=== PATIENT | female | born 1955 | race Two or more races ===

== ENCOUNTER 2020-09-29 12:47 | Emergency (ER) | payer MEDICAID ==
[~2020-09-29] VITALS: Ht 167.6 cm; Wt 70.3 kg
[2020-09-29 14:24] LABS: Basophils # (auto) 0.1 10 ^3/uL (0-0.2); Basophils % (auto) 0.5 % (0.0-2.0); Eosinophils # (auto) 0.1 10 ^3/uL (0-0.8); Eosinophils % (auto) 0.5 % (0.0-7.0); Hematocrit 38.9 % (36.0-46.0); Hemoglobin 13.3 g/dL (12.2-16.2); Lymphocytes # (auto) 1.2 10 ^3/uL (0.4-5.4); Lymphocytes % (auto) 11.4 % (10.0-50.0); Mean Corpuscular Hemoglobin 33.1 pg (28.0-32.0); Mean Corpuscular Hgb Conc. 34.2 g/dL (32.0-36.0); Mean Corpuscular Volume 96.7 fL (80.0-100.0); Monocytes # (auto) 0.5 10 ^3/uL (0-1.3); Monocytes % (auto) 4.3 % (0.0-12.0); Neutrophils # (auto) 8.9 10 ^3/uL (1.6-8.6); Neutrophils % (auto) 83.3 % (37.0-80.0); Nucleated Red Blood Cells % 0.1 %; Platelet Count (auto) 339 10^3/uL (140-450); Red Blood Cells 4.03 10^6/uL (4.0-5.20); Red Cell Distribution Width 13.9 % (11.8-14.3); White Blood Cell 10.6 10^3/uL (4.4-10.8)
[2020-09-29 14:48] LABS: Calcium 9.1 mg/dL (8.5-10.1); Potassium 3.8 mmol/L (3.5-5.1)
[2020-09-29 14:55] LABS: Albumin 4.1 g/dL (3.4-5.0); BUN/Creatinine Ratio 17.2; Bilirubin, Total 0.6 mg/dL (0.2-1.0); Total Protein 7.8 g/dL (6.4-8.2)
[2020-09-29 15:18] LABS: Urine Bacteria FEW /hpf (None Seen); Urine Blood Negative /uL (Negative); Urine Specific Gravity 1.011 (1.001-1.035); Urine WBC 9 /hpf (0 - 5)
[2020-09-29 15:51] LABS: Amphetamine Screen, Urine POSITIVE (NEGATIVE); Barbiturate Scree,Urine NEGATIVE (NEGATIVE); Benzodiazephine Screen, Urine NEGATIVE (NEGATIVE); Cannabinoid Screen, Urine NEGATIVE (NEGATIVE); Cocaine Screen, Urine NEGATIVE (NEGATIVE); Opiate Scree,Urine NEGATIVE (NEGATIVE); Phencyclidine Screen, Urine NEGATIVE (NEGATIVE)
[2020-09-29 16:17] LABS: INR 1.67 (0.9-1.15); Partial Thromboplastin Time 38.2 sec (23.0-31.2)
[2020-09-29] MEDS ORDERED: cefTRIAXone 1GM/50ML D5W 50 ML IV ONE (16:45)
[2020-09-29] MEDS ORDERED: ENOXAPARIN SOD 80 MG/0.8ML SYRINGE SC ONE (17:30)
[2020-09-29 17:56] VITALS: BP 126/72
[2020-09-29] MEDS ORDERED: APIX5TAB PO (18:54)
== END 2020-09-29 20:31 | disposition home or self-care (01) ==
LOC: ER 12:47
DX: I82.402 Acute embolism and thrombosis of unspecified deep veins of left lower extremity (principal); N39.0 Urinary tract infection, site not specified; F15.10 Other stimulant abuse, uncomplicated; E78.5 Hyperlipidemia, unspecified; I10 Essential (primary) hypertension; F17.210 Nicotine dependence, cigarettes, uncomplicated; Z90.49 Acquired absence of other specified parts of digestive tract; Z88.0 Allergy status to penicillin; Z88.8 Allergy status to other drugs, medicaments and biological substances
CPT/HCPCS: 36415; 80053; 80307; 81001; 85025; 85610; 85730; 93971; 96365; 96372; 99284; J0696; J1650

== ENCOUNTER → 2023-06-11 | Outpatient (CLI) | payer OTHER, MEDICAID ==
[~2023-06-11] MED LIST: APIX5TAB PO; CAR3125T PO; GABA-339 PO; LEVO25TA6 PO; LOSA25TA15 PO; MELA3TAB27 PO; MELO7.5T7 PO
[2023-06-11 10:12] LABS: Chloride 102 mmol/L (98-107); Potassium 4.6 mmol/L (3.5-5.1); Sodium 136 mmol/L (136-145)
[2023-06-11 10:13] LABS: Anion Gap 11 (5-15); Carbon Dioxide 23 mmol/L (20-30)
[2023-06-11 10:14] LABS: Calcium 9.6 mg/dL (8.5-10.1)
[2023-06-11 10:18] LABS: Glucose 93 mg/dL (74-106)
[2023-06-11 10:19] LABS: BUN/Creatinine Ratio 16.3 (10.0-20.0); Blood Urea Nitrogen 34 mg/dL (9-23)
[2023-06-11 11:11] LABS: Creatinine, Urine 88.98 mg/dL (30.0-125.0)
[2023-06-11 11:20] LABS: Uric Acid 10.7 mg/dL (3.1-7.8)
== END | disposition home or self-care (01) ==
LOC: LAB 09:44
PROVIDERS: ATTEND Internal Medicine
DX: N18.30 Chronic kidney disease, stage 3 unspecified (principal); R73.03 Prediabetes
CPT/HCPCS: 36415; 80048; 82043; 82570; 84550

== ENCOUNTER 2023-11-25 17:08 | Inpatient (IN) | payer OTHER, MEDICAID ==
[~2023-11-25] VITALS: Ht 170.2 cm; Wt 78.6 kg
[~2023-11-25 17:08] MED LIST changes: +LOSA-533 PO; -LOSA25TA15 PO
[2023-11-25 18:31] LABS: Urine Bacteria None Seen /hpf (None Seen)
[2023-11-25 18:45] LABS: Basophils # (auto) 0.1 10 ^3/uL (0-0.2); Basophils % (auto) 0.7 % (0.0-2.0); Eosinophils # (auto) 0.6 10 ^3/uL (0-0.8); Eosinophils % (auto) 6.3 % (0.0-7.0); Hematocrit 38.8 % (36.0-46.0); Hemoglobin 12.9 g/dL (12.2-16.2); Lymphocytes # (auto) 2.1 10 ^3/uL (0.4-5.4); Lymphocytes % (auto) 20.3 % (10.0-50.0); Mean Corpuscular Hemoglobin 31.5 pg (28.0-32.0); Mean Corpuscular Hgb Conc. 33.2 g/dL (32.0-36.0); Mean Corpuscular Volume 94.9 fL (80.0-100.0); Monocytes % (auto) 10.2 % (0.0-12.0); Neutrophils # (auto) 6.4 10 ^3/uL (1.6-8.6); Neutrophils % (auto) 62.5 % (37.0-80.0); Red Blood Cells 4.08 10^6/uL (4.0-5.20); Red Cell Distribution Width 13.7 % (11.8-14.3); White Blood Cell 10.2 10^3/uL (4.4-10.8)
[2023-11-25 18:53] LABS: Chloride 97 mmol/L (98-107); Potassium 4.3 mmol/L (3.5-5.1); Sodium 133 mmol/L (136-145)
[2023-11-25 18:54] LABS: Urine Blood Negative /uL (Negative); Urine Clarity Clear (Clear); Urine Color Colorless (Yellow); Urine Protein, UAD Negative (Negative); Urine Specific Gravity 1.005 (1.001-1.035); Urine Urobilinogen Normal (Negative); Urine WBC <1 /hpf (0 - 5)
[2023-11-25 18:54] LABS: Anion Gap 10 (5-15); Carbon Dioxide 26 mmol/L (20-30)
[2023-11-25 18:59] LABS: Blood Urea Nitrogen 28 mg/dL (9-23); Glucose 95 mg/dL (74-106)
[2023-11-25 19:14] LABS: INR 1.05 (0.9-1.15); Partial Thromboplastin Time 32.7 SEC (24.5-34.5); Prothrombin Time 11.1 sec (9.3-11.8)
[2023-11-25] MEDS: cefTRIAXone 1GM/50ML D5W 50 ML IV ONE (20:38)
[2023-11-25] MEDS: CLINDAMYCIN 300MG IV 50 ML IV ONE (20:50)
[2023-11-25] MEDS ORDERED: TEMAZEPAM 15 MG CAP PO PRN (22:30)
[2023-11-25] MEDS ORDERED: ONDANSETRON HCL 4 MG/2 ML VIAL IV PRN (22:30)
[2023-11-25] MEDS: HYDROcodone-ACET 5/325MG TAB PO PRN (23:10)
[2023-11-25 23:13] LABS: Lactic Acid w/Reflex 2.2 mmol/L (0.4-2.0)
[2023-11-26] VITALS (7 sets, daily range): BP systolic 127–150; BP diastolic 75–84; PULSE 70–91; RESP 16–20; TEMP 36.8; O2SAT 96–99
[2023-11-26] MEDS ORDERED: HYDR-3682 PO (01:13)
[2023-11-26] MEDS ORDERED: METH-1182 PO (01:13)
[2023-11-26] MEDS: CLINDAMYCIN 600MG IV 50 ML IV SCH (05:58)
[2023-11-26] MEDS: LEVOTHYROXINE SODIUM 25 MCG TAB PO SCH (05:58)
[2023-11-26 06:05] LABS: Basophils # (auto) 0.1 10 ^3/uL (0-0.2); Basophils % (auto) 0.7 % (0.0-2.0); Eosinophils # (auto) 0.6 10 ^3/uL (0-0.8); Hematocrit 35.8 % (36.0-46.0); Lymphocytes # (auto) 1.9 10 ^3/uL (0.4-5.4); Lymphocytes % (auto) 23.3 % (10.0-50.0); Mean Corpuscular Hemoglobin 31.9 pg (28.0-32.0); Mean Corpuscular Hgb Conc. 33.6 g/dL (32.0-36.0); Mean Corpuscular Volume 94.8 fL (80.0-100.0); Monocytes % (auto) 12.5 % (0.0-12.0); Neutrophils # (auto) 4.6 10 ^3/uL (1.6-8.6); Neutrophils % (auto) 56.5 % (37.0-80.0); Nucleated Red Blood Cells % 0.1 %; Red Blood Cells 3.78 10^6/uL (4.0-5.20); Red Cell Distribution Width 13.8 % (11.8-14.3); White Blood Cell 8.2 10^3/uL (4.4-10.8)
[2023-11-26 06:15] LABS: Calcium 9.6 mg/dL (8.7-10.4); Chloride 103 mmol/L (98-107); Potassium 4.1 mmol/L (3.5-5.1); Sodium 138 mmol/L (136-145)
[2023-11-26 06:16] LABS: Anion Gap 11 (5-15); Carbon Dioxide 24 mmol/L (20-30)
[2023-11-26 06:21] LABS: BUN/Creatinine Ratio 19.5 (10.0-20.0); Blood Urea Nitrogen 24 mg/dL (9-23); Glucose 91 mg/dL (74-106)
[2023-11-26] MEDS: GABAPENTIN 300 MG CAP PO SCH (08:47)
[2023-11-26] MEDS: APIXABAN 5 MG TAB PO SCH (08:48)
[2023-11-26] MEDS: ACETAMINOPHEN 325 MG TAB PO PRN (08:48)
[2023-11-26] MEDS: CARVEDILOL 3.125 MG TAB PO SCH (08:49)
[2023-11-26 09:22] LABS: Creatinine, Urine 36.58 mg/dL (30.0-125.0)
[2023-11-26] MEDS: MAGNESIUM OXIDE 400 MG TAB PO ONE (12:14)
[2023-11-26] MEDS: cefTRIAXone 1GM/50ML D5W 50 ML IV ONE (12:14)
[2023-11-26] MEDS: amLODIPine BESYLATE 5 MG TAB PO ONE (12:15)
[2023-11-26] MEDS: SODIUM CHLORIDE 0.9% 1,000 ML IV SCH (12:24)
[2023-11-26] MEDS ORDERED: IOHEXOL 300 MG/ML 100ML BOTTLE IJ ONE (16:35)
[2023-11-26] MEDS: traMADol HCL 50 MG TAB PO PRN (16:38)
[2023-11-26] MEDS ORDERED: ACET-1079 PO (17:06)
[2023-11-26] MEDS ORDERED: LEVO500T91 PO (17:06)
[2023-11-26] MEDS ORDERED: MAGNESIUM OXIDE 400 MG TAB PO SCH (22:00)
[2023-11-27] MEDS ORDERED: cefTRIAXone 1GM/50ML D5W 50 ML IV SCH (09:00)
[2023-11-27] MEDS ORDERED: amLODIPine BESYLATE 5 MG TAB PO SCH (10:00)
== END 2023-11-26 19:42 | disposition home or self-care (01) | DRG 602 ==
LOC: ER 17:08 → OVERFLOW 22:52 → WEST WING 11-26 00:40
PROVIDERS: ADMIT Internal Medicine; ATTEND Emergency Medicine
DX: L03.114 Cellulitis of left upper limb (principal); N17.0 Acute kidney failure with tubular necrosis; M19.042 Primary osteoarthritis, left hand; N18.9 Chronic kidney disease, unspecified; I12.9 Hypertensive chronic kidney disease with stage 1 through stage 4 chronic kidney disease, or unspecified chronic kidney disease; G89.29 Other chronic pain; M25.562 Pain in left knee; M54.9 Dorsalgia, unspecified; E03.9 Hypothyroidism, unspecified; F17.210 Nicotine dependence, cigarettes, uncomplicated; E78.5 Hyperlipidemia, unspecified; Z88.8 Allergy status to other drugs, medicaments and biological substances; Z79.899 Other long term (current) drug therapy; Z88.0 Allergy status to penicillin; Z88.2 Allergy status to sulfonamides; Z90.49 Acquired absence of other specified parts of digestive tract; Z80.0 Family history of malignant neoplasm of digestive organs; Z80.1 Family history of malignant neoplasm of trachea, bronchus and lung
CPT/HCPCS: 36415; 73200; 76775; 80048; 81001; 82570; 83036; 83605; 83735; 84300; 84443; 84550; 85025; 85379; 85610; 85730; 87040; 87081; 93971; G0378; J3490

== ENCOUNTER → 2023-12-10 | Outpatient (CLI) | payer OTHER, MEDICAID ==
[~2023-12-10] MED LIST changes: +ACET-1079 PO; +HYDR-3682 PO; +LEVO500T91 PO; -LOSA-533 PO; -MELA3TAB27 PO; -MELO7.5T7 PO; +METH-1182 PO
[2023-12-10 16:13] LABS: Urine Bacteria None Seen /hpf (None Seen)
[2023-12-10 16:20] LABS: Basophils # (auto) 0.1 10 ^3/uL (0-0.2); Basophils % (auto) 0.6 % (0.0-2.0); Eosinophils # (auto) 0.5 10 ^3/uL (0-0.8); Eosinophils % (auto) 4.2 % (0.0-7.0); Hematocrit 38.2 % (36.0-46.0); Hemoglobin 12.9 g/dL (12.2-16.2); Lymphocytes # (auto) 2.7 10 ^3/uL (0.4-5.4); Lymphocytes % (auto) 21.2 % (10.0-50.0); Mean Corpuscular Hemoglobin 31.8 pg (28.0-32.0); Mean Corpuscular Hgb Conc. 33.7 g/dL (32.0-36.0); Mean Corpuscular Volume 94.5 fL (80.0-100.0); Monocytes # (auto) 1.5 10 ^3/uL (0-1.3); Monocytes % (auto) 11.8 % (0.0-12.0); Neutrophils # (auto) 7.9 10 ^3/uL (1.6-8.6); Neutrophils % (auto) 62.2 % (37.0-80.0); Nucleated Red Blood Cells % 0.1 %; Red Blood Cells 4.04 10^6/uL (4.0-5.20); Red Cell Distribution Width 14.3 % (11.8-14.3); White Blood Cell 12.7 10^3/uL (4.4-10.8)
[2023-12-10 16:25] LABS: Urine Blood Negative /uL (Negative); Urine Clarity Clear (Clear); Urine Color Light-Yellow (Yellow); Urine Protein, UAD Negative (Negative); Urine Specific Gravity 1.019 (1.001-1.035); Urine Urobilinogen Normal (Negative); Urine WBC 7 /hpf (0 - 5); Urine pH 5.5 (5.0-9.0)
[2023-12-10 16:36] LABS: Creatinine, Urine 90.58 mg/dL (30.0-125.0)
[2023-12-10 16:40] LABS: Alanine Aminotransferase 11 U/L (7-40); Albumin 4.2 g/dL (3.2-4.8); Alkaline Phosphatase 77 U/L (46-116); Anion Gap 6 (5-15); Aspartate Aminotransferase 11 U/L (13-40); BUN/Creatinine Ratio 22.3 (10.0-20.0); Blood Urea Nitrogen 21 mg/dL (9-23); Calcium 9.2 mg/dL (8.5-10.1); Carbon Dioxide 26 mmol/L (20-30); Chloride 107 mmol/L (98-107); GFR African American 76 mL/min; GFR Non-African American 63 mL/min; Glucose 89 mg/dL (74-106); Potassium 4.1 mmol/L (3.5-5.1); Sodium 139 mmol/L (136-145)
[2023-12-10 16:41] LABS: Bilirubin, Total 0.7 mg/dL (0.2-1.0); Phosphorus 3.7 mg/dL (2.4-5.1); Total Protein 6.2 g/dL (5.7-8.2)
[2023-12-10 16:54] LABS: Uric Acid 8.9 mg/dL (3.1-7.8)
[2023-12-10 17:00] LABS: Erythrocyte Sedimentation Rate 4 mm/hr (0-20)
== END | disposition home or self-care (01) ==
LOC: LAB 15:49
PROVIDERS: ATTEND Internal Medicine
DX: E03.9 Hypothyroidism, unspecified (principal); N39.0 Urinary tract infection, site not specified; E21.3 Hyperparathyroidism, unspecified; N18.30 Chronic kidney disease, stage 3 unspecified; D63.1 Anemia in chronic kidney disease; M10.9 Gout, unspecified
CPT/HCPCS: 36415; 80053; 80069; 81001; 82043; 82306; 82570; 83970; 84550; 85025; 85652; 87086

== ENCOUNTER 2024-02-07 01:44 | Emergency (ER) | payer OTHER, MEDICAID ==
[~2024-02-07] VITALS: Ht 170.2 cm; Wt 76.6 kg
[2024-02-07 03:05] VITALS: TEMP 97.9
[2024-02-07] MEDS: hydrALAZINE HCL 10 MG TAB PO ONE (03:05)
[2024-02-07 03:35] LABS: Basophils # (auto) 0.1 10 ^3/uL (0-0.2); Eosinophils # (auto) 0.6 10 ^3/uL (0-0.8); Eosinophils % (auto) 6.5 % (0.0-7.0); Hemoglobin 12.4 g/dL (12.2-16.2); Lymphocytes # (auto) 2.5 10 ^3/uL (0.4-5.4); Lymphocytes % (auto) 27.4 % (10.0-50.0); Mean Corpuscular Hemoglobin 32.4 pg (28.0-32.0); Mean Corpuscular Hgb Conc. 33.4 g/dL (32.0-36.0); Mean Corpuscular Volume 96.9 fL (80.0-100.0); Monocytes # (auto) 0.8 10 ^3/uL (0-1.3); Neutrophils # (auto) 5.1 10 ^3/uL (1.6-8.6); Neutrophils % (auto) 56.1 % (37.0-80.0); Nucleated Red Blood Cells % 0.2 %; Platelet Count (auto) 365 10^3/uL (140-450); Red Blood Cells 3.82 10^6/uL (4.0-5.20); Red Cell Distribution Width 14.1 % (11.8-14.3); White Blood Cell 9.1 10^3/uL (4.4-10.8)
[2024-02-07 03:40] LABS: Chloride 108 mmol/L (98-107); Potassium 3.4 mmol/L (3.5-5.1); Sodium 140 mmol/L (136-145)
[2024-02-07 03:41] LABS: Anion Gap 8 (5-15); Carbon Dioxide 24 mmol/L (20-30)
[2024-02-07 03:42] LABS: Calcium 9.5 mg/dL (8.7-10.4)
[2024-02-07 03:46] LABS: BUN/Creatinine Ratio 13.7 (10.0-20.0); Blood Urea Nitrogen 14 mg/dL (9-23); Glucose 159 mg/dL (74-106)
[2024-02-07 05:04] VITALS: BP 139/85; PULSE 65; RESP 17; O2SAT 94
== END 2024-02-07 05:04 | disposition home or self-care (01) ==
LOC: ER 01:44
DX: I10 Essential (primary) hypertension (principal); G44.1 Vascular headache, not elsewhere classified; Z90.49 Acquired absence of other specified parts of digestive tract; Z98.890 Other specified postprocedural states; Z79.899 Other long term (current) drug therapy; Z88.2 Allergy status to sulfonamides; Z88.0 Allergy status to penicillin; Z88.8 Allergy status to other drugs, medicaments and biological substances
CPT/HCPCS: 36415; 70450; 71045; 80048; 83880; 84484; 85025; 93005

== ENCOUNTER → 2024-03-28 | Outpatient (CLI) | payer OTHER, MEDICAID ==
[2024-03-28 14:56] LABS: Albumin 4.3 g/dL (3.2-4.8); Alkaline Phosphatase 74 U/L (46-116); Anion Gap 6 (5-15); Aspartate Aminotransferase 11 U/L (13-40); BUN/Creatinine Ratio 22.4 (10.0-20.0); Bilirubin, Total 0.5 mg/dL (0.2-1.0); Blood Urea Nitrogen 30 mg/dL (9-23); Calcium 10.2 mg/dL (8.7-10.4); Carbon Dioxide 34 mmol/L (20-31); Chloride 100 mmol/L (98-107); Glucose 111 mg/dL (74-106); Potassium 3.5 mmol/L (3.5-5.1); Sodium 140 mmol/L (136-145); Total Protein 6.7 g/dL (5.7-8.2)
[2024-03-28 15:00] LABS: Alanine Aminotransferase < 9 U/L (7-40)
[2024-03-28 15:23] LABS: Urine Bacteria FEW /hpf (None Seen); Urine Blood Negative /uL (Negative); Urine Clarity Clear (Clear); Urine Color Colorless (Yellow); Urine Protein, UAD Negative (Negative); Urine Specific Gravity 1.009 (1.001-1.035); Urine Urobilinogen Normal (Negative); Urine WBC 6 /hpf (0 - 5)
[2024-03-28 15:39] LABS: Amphetamine Screen, Urine Neg (NEGATIVE); Barbiturate Scree,Urine Neg (NEGATIVE); Benzodiazephine Screen, Urine Neg (NEGATIVE); Cannabinoid Screen, Urine Neg (NEGATIVE); Cocaine Screen, Urine Neg (NEGATIVE); Opiate Scree,Urine Neg (NEGATIVE); Phencyclidine Screen, Urine Neg (NEGATIVE)
== END | disposition home or self-care (01) ==
LOC: LAB 14:08
PROVIDERS: ATTEND Internal Medicine
DX: K76.0 Fatty (change of) liver, not elsewhere classified (principal); E03.9 Hypothyroidism, unspecified; G89.4 Chronic pain syndrome
CPT/HCPCS: 36415; 80053; 80307; 81001

== ENCOUNTER 2024-04-11 14:17 | Emergency (ER) | payer OTHER, MEDICAID ==
[~2024-04-11] VITALS: Ht 170.2 cm; Wt 82.5 kg
[2024-04-11 16:13] LABS: Basophils # (auto) 0.1 10 ^3/uL (0-0.2); Basophils % (auto) 1.2 % (0.0-2.0); Eosinophils # (auto) 0.5 10 ^3/uL (0-0.8); Eosinophils % (auto) 7.6 % (0.0-7.0); Hematocrit 41.5 % (36.0-46.0); Hemoglobin 13.5 g/dL (12.2-16.2); Lymphocytes # (auto) 1.9 10 ^3/uL (0.4-5.4); Lymphocytes % (auto) 27.6 % (10.0-50.0); Mean Corpuscular Hemoglobin 30.6 pg (28.0-32.0); Mean Corpuscular Hgb Conc. 32.5 g/dL (32.0-36.0); Mean Corpuscular Volume 94.3 fL (80.0-100.0); Monocytes # (auto) 0.9 10 ^3/uL (0-1.3); Monocytes % (auto) 12.7 % (0.0-12.0); Neutrophils # (auto) 3.6 10 ^3/uL (1.6-8.6); Neutrophils % (auto) 50.9 % (37.0-80.0); Nucleated Red Blood Cells % 0.1 %; Platelet Count (auto) 262 10^3/uL (140-450); Red Cell Distribution Width 14.9 % (11.8-14.3)
[2024-04-11 16:32] VITALS: RESP 18
[2024-04-11 16:33] VITALS: BP 140/92; PULSE 76; RESP 17; TEMP 98.5; O2SAT 98
[2024-04-11 16:36] LABS: Alanine Aminotransferase 17 U/L (7-40); Alkaline Phosphatase 81 U/L (46-116); Anion Gap 10 (5-15); Aspartate Aminotransferase 18 U/L (13-40); BUN/Creatinine Ratio 20.5 (10.0-20.0); Bilirubin, Total 0.5 mg/dL (0.2-1.0); Blood Urea Nitrogen 33 mg/dL (9-23); Calcium 10.2 mg/dL (8.7-10.4); Carbon Dioxide 28 mmol/L (20-31); Chloride 101 mmol/L (98-107); Glucose 103 mg/dL (74-106); INR 1.13 (0.9-1.15); Lipase 66 U/L (12-53); Partial Thromboplastin Time 29.5 SEC (24.5-34.5); Potassium 3.7 mmol/L (3.5-5.1); Prothrombin Time 11.9 sec (9.3-11.8); Sodium 139 mmol/L (136-145); Total Protein 7.2 g/dL (5.7-8.2)
[2024-04-11] MEDS: PANTOPRAZOLE 40 MG/10 ML VIAL INJ IV ONE (16:45)
== END 2024-04-11 18:55 | disposition left against medical advice (07) ==
LOC: ER 14:17
DX: K43.9 Ventral hernia without obstruction or gangrene (principal); K92.2 Gastrointestinal hemorrhage, unspecified; R19.7 Diarrhea, unspecified; E78.5 Hyperlipidemia, unspecified; E03.9 Hypothyroidism, unspecified; I12.9 Hypertensive chronic kidney disease with stage 1 through stage 4 chronic kidney disease, or unspecified chronic kidney disease; N18.9 Chronic kidney disease, unspecified; Z90.49 Acquired absence of other specified parts of digestive tract; Z53.29 Procedure and treatment not carried out because of patient's decision for other reasons; Z88.0 Allergy status to penicillin; Z88.2 Allergy status to sulfonamides; Z88.8 Allergy status to other drugs, medicaments and biological substances; Z79.899 Other long term (current) drug therapy
CPT/HCPCS: 36415; 74176; 80053; 83605; 83690; 84484; 85025; 85610; 85730; 86850; 86900; 86901; 93005; 96374; 99285; J2470

== ENCOUNTER → 2024-04-11 | Outpatient (CLI) | payer OTHER, MEDICAID ==
[2024-04-11 09:44] LABS: Urine Bacteria None Seen /hpf (None Seen)
[2024-04-11 10:00] LABS: Basophils # (auto) 0.1 10 ^3/uL (0-0.2); Eosinophils # (auto) 0.4 10 ^3/uL (0-0.8); Eosinophils % (auto) 6.7 % (0.0-7.0); Hematocrit 39.6 % (36.0-46.0); Hemoglobin 13.2 g/dL (12.2-16.2); Lymphocytes % (auto) 31.7 % (10.0-50.0); Mean Corpuscular Hemoglobin 30.9 pg (28.0-32.0); Mean Corpuscular Hgb Conc. 33.4 g/dL (32.0-36.0); Mean Corpuscular Volume 92.5 fL (80.0-100.0); Monocytes # (auto) 0.8 10 ^3/uL (0-1.3); Neutrophils % (auto) 47.6 % (37.0-80.0); Platelet Count (auto) 281 10^3/uL (140-450); Red Blood Cells 4.27 10^6/uL (4.0-5.20); White Blood Cell 6.3 10^3/uL (4.4-10.8)
[2024-04-11 10:29] LABS: Urine Blood Negative /uL (Negative); Urine Clarity Clear (Clear); Urine Color Light-Yellow (Yellow); Urine Hyaline Cast FEW /lpf (0 - 2); Urine Mucus FEW (None Seen); Urine Protein, UAD Negative (Negative); Urine Urobilinogen Normal (Negative); Urine WBC 6 /hpf (0 - 5); Urine pH 5.5 (5.0-9.0)
[2024-04-11 10:43] LABS: Potassium 3.5 mmol/L (3.5-5.1)
[2024-04-11 10:49] LABS: Uric Acid 11.6 mg/dL (3.1-7.8)
[2024-04-11 10:50] LABS: BUN/Creatinine Ratio 18.3 (10.0-20.0)
[2024-04-11 10:51] LABS: Albumin 4.9 g/dL (3.2-4.8)
[2024-04-11 10:52] LABS: Phosphorus 5.4 mg/dL (2.4-5.1)
[2024-04-11 11:22] LABS: Protein, Urine < 6.0 mg/dL (1-14)
[2024-04-11 11:24] LABS: Creatinine, Urine 63.81 mg/dL (30.0-125.0); Urine Protein/Creatinine Ratio 0.09
== END | disposition home or self-care (01) ==
LOC: LAB 09:26
PROVIDERS: ATTEND Internal Medicine Nephrology
DX: E21.3 Hyperparathyroidism, unspecified (principal); E56.9 Vitamin deficiency, unspecified
CPT/HCPCS: 36415; 80069; 81001; 82306; 82570; 83970; 84156; 84550; 85025

== ENCOUNTER 2024-04-22 11:20 | Emergency (ER) | payer OTHER, MEDICAID ==
[~2024-04-22] VITALS: Ht 170.2 cm; Wt 72.0 kg
--- NOTE | 2024-04-22 11:54 | ED.PDOC ---
HPI (NEURO) HPI Comments This is a 68-year-old female who comes in to the ED with chief complaint of generalized weakness and right arm numbness. She has a past medical history relevant for hypertension, hypothyroidism, renal mass. She also has a long history of methamphetamine abuse and alcohol abuse. Patient is a poor historian. She stated that she has been having right upper arm numbness for around two weeks, she stated that she also feels that both her feet are known and she has been having gait imbalance, denies any dizziness, lightheadedness, syncope, palpitations, chest pain, shortness of breath, abdominal pain, nausea. Patient also states having mild headaches, intermittent, most prominent at on frontal area, localized. Patient stated that the last thing she did meth and alcohol was this morning. 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 History Family History Family History: Reviewed,noncontributory to illness Social History Smoker: Non-Smoker Alcohol: Denies ETOH Use Drugs: Denies Drug Use Lives In: Home Constitutional: denies: chills, diaphoresis, fatigue, fever, malaise, sweats, weakness, others EENTM: denies: blurred vision, double vision, ear bleeding, ear discharge, ear drainage, ear pain, ear ringing, eye pain, eye redness, hearing loss, mouth pain, mouth swelling, nasal discharge, nose bleeding, nose congestion, nose pain, photophobia, tearing, throat pain, throat swelling, voice changes, others Respiratory: denies: cough, hemoptysis, orthopnea, SOB at rest, shortness of breath, SOB with excertion, stridor, wheezing, others Gastrointestinal: denies: abdomen distended, abdominal pain, blood streaked bowels, constipated, diarrhea, dysphagia, difficulty swallowing, hematemesis, melena, nausea, poor appetite, poor fluid intake, rectal bleeding, rectal pain, vomiting, others Genitourinary: denies: abnormal vagina bleeding, burning, dyspareunia, dysuria, flank pain, frequency, hematuria, incontinence, pain, , vagina discharge, urgency, others Neurological: reports: headache, paresthesia, right sided numbness, speech problems; denies: dizziness, fainting, left sided numbness, left sided weakness, numbness, pre-existing deficit, right sided weakness, seizure, tingling, tremors, weakness, others Musculoskeletal: denies: back pain, gout, joint pain, joint swelling, muscle pain, muscle stiffness, neck pain, others Integumetry: denies: bruises, change in color, change in hair/nails, dryness, laceration, lesions, lumps, rash, wounds, others Allergic/Immunocompromised: denies: Difficulty Healing, Frequent Infections, Hives, Itching, others Hematologic/Lymphatic: denies: anemia, blood clots, easy bleeding, easy br uising, swollen glands, others Endocrine: denies: excessive hunger, excessive sweating, excessive thirst, excessive urination, flushing, intolerance to cold, intolerance to heat, unexplained weight gain, unexplained weight loss, others Psychiatric: denies: anxiety, bipolar disorder, depression, hopeless, panic disorder, schizophrenia, sleepless, suicidal, others Physical Exam General Appearance: No Apparent Distress, Normal HEENT: Normal ENT Inspection, Pharynx Normal, TMs Normal Neck: Full Range of Motion, Non-Tender, Normal, Normal Inspection Respiratory: Chest Non-Tender, Lungs Clear, No Accessory Muscle Use, No R espiratory Distress, Normal Breath Sounds Cardiovascular: No Edema, No JVD, No Murmur, No Gallop, Normal Peripheral Pulses, Regular Rate/Rhythm Breast Exam: Deferred Gastrointestinal: No Organomegaly, Non Tender, No Pulsatile Mass, Normal Bowel Sounds, Soft Genitalia: Deferred Pelvic: Deferred Rectal: Deferred Extremities: No calf tenderness, Normal capillary refill, Normal inspection, Normal range of motion, Non-tender, No pedal edema Neurologic: Abnormal Gait, Alert, 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 Was a procedure done?: No Differential Diagnosis (SZ) Seizure: Alcohol Withdrawl, CVA/TIA, Drug Ingestion General Weakness: Anemia, Electrolyte imbalance X-Ray, Labs, Meds, VS Vital Signs Date Time Temp Pulse Resp B/P (MAP) Pulse Ox O2 Delivery O2 Flow Rate FiO2 04/22/24 14:00 98.7 81 18 165/84 (111) 96 98.7 04/22/24 12:29 98.0 79 18 170/69 (102) 95 98.0 04/22/24 12:29 79 18 95 Room Air 04/22/24 11:40 97.6 88 16 143/89 (107) 95 Lab Test 04/22/24 12:59 Range/Units White Blood Count 6.9 4.4-10.8 10^3/uL Red Blood Count 4.35 4.0-5.20 10^6/uL Hemoglobin 13.6 12.2-16.2 g/dL Hematocrit 40.3 36.0-46.0 % Mean Corpuscular Volume 92.5 80.0-100.0 fL Mean Corpuscular Hemoglobin 31.2 28.0-32.0 pg Mean Corpuscular Hemoglobin Concent 33.8 32.0-36.0 g/dL Red Cell Distribution Width 15.1 H 11.8-14.3 % Platelet Count 269 140-450 10^3/uL Mean Platelet Volume 7.7 6.9-10.8 fL Neutrophils (%) (Auto) 58.4 37.0-80.0 % Lymphocytes (%) (Auto) 26.8 10.0-50.0 % Monocytes (%) (Auto) 8.8 0.0-12.0 % Eosinophils (%) (Auto) 4.6 0.0-7.0 % Basophils (%) (Auto) 1.4 0.0-2.0 % Neutrophils # (Auto) 4.1 1.6-8.6 10 ^3/uL Lymphocytes # (Auto) 1.9 0.4-5.4 10 ^3/uL Monocytes # (Auto) 0.6 0-1.3 10 ^3/uL Eosinophils # (Auto) 0.3 0-0.8 10 ^3/uL Basophils # (Auto) 0.1 0-0.2 10 ^3/uL Nucleated Red Blood Cells 0.0 % Sodium Level 142 136-145 mmol/L Potassium Level 3.1 L 3.5-5.1 mmol/L Chloride Level 101 98-107 mmol/L Carbon Dioxide Level 31 20-31 mmol/L Anion Gap 10 5-15 Blood Urea Nitrogen 13 9-23 mg/dL Creatinine 0.80 0.550-1.02 mg/dL Glomerular Filtration Rate Calc 81 >90 mL/min BUN/Creatinine Ratio 16.3 10.0-20.0 Serum Glucose 95 74-106 mg/dL Calcium Level 10.0 8.7-10.4 mg/dL Magnesium Level 1.6 1.6-2.6 mg/dL Current Medications Medications (Trade) Dose Ordered Sig/Eitan Route Start Time Stop Time Status Last Admin Potassium Chloride (Klor-Con Tablet) 60 meq ONCE ONCE PO 04/22/24 13:45 04/22/24 13:46 DC 04/22/24 14:03 On my initial examination, patient was in mild distress, she appear anxious, agitated, we will ordered and a CBC, BNP, magnesium, head CT, we will continue to reassess. On reassessment, patient states feeling better, she was able to stand, denied any significant dizziness, lightheadedness, head CT came back unremarkable, BNP demonstrated hypokalemia, we will give potassium 60 mEq p.o. once, magnesium was 1.6. We will discharge patient home and continue home medications, she will recommended to follow her PCP within one week, patient and verbalized understanding and agree with the plan. Images Reviewed?: Images reviewed and evaluated by me Time of 1ST Reevaluation: 11:48 Reevaluation 1ST: Unchanged Time of 2ND Reevaluation: 14:00 Reevaluation 2ND: Improved Patient Education/Counseling: Diagnosis, Treatment Family Education/Counseling: No Family Present Departure 1 Departure Time of Disposition: 14:42 Impression: Primary Impression: Amphetamine abuse Additional Impressions: Abnormal behavior Hypokalemia Disposition: 01 HOME / SELF CARE / HOMELESS Condition: Stable Critical Care Note Critical Care Time?: No Stability Stability form required: No Heart Score Heart Score: Heart Score Response (Comments) Value History N/A 0 EKG N/A 0 Age N/A 0 Risk Factors N/A 0 Troponin N/A 0 Total 0 DARY JIMENEZ RESIDENT Apr 22, 2024 11:54
--- NOTE | 2024-04-22 12:17 | DVH ---
EXAM: CT HEAD WITHOUT CONTRAST HISTORY: right arm numbness, dizziness COMPARISON: CT HEAD WITHOUT CONTRAST on DOS: 02/07/24, CT CT L HAND WO CONTRAST on DOS: 11/26/23 TECHNIQUE: Axial images were obtained and reformatted in coronal and sagittal planes. All CT scans at this medical facility are performed using dose modulation techniques as appropriate t o a performed exam including the following: Automated exposure control was utilized; adjustment of th e MA and/or KV according to patient size; and use of iterative reconstruction technique. CT Dose: CTDI volume is 52.39 mGy. Dose-length product is 863.9 mGy*cm FINDINGS: Supratentorial Region: No evidence for large acute territorial ischemia. No intracranial hemorrhage is noted. Confluent white matter hypoattenuating foci are noted bilaterally, which typically reflect chronic microvascular ischemic changes. Posterior Fossa: No acute abnormality. Brainstem: Unremarkable. Sellar/Suprasellar Region: Unremarkable. Ventricles, Cisterns, Sulci: Age-appropriate. Orbits: Unremarkable. Paranasal Sinuses: Unremarkable. Mastoid Air Cells: Unremarkable. Vasculature: Intracranial arterial calcified plaque formation noted. Bones/Soft Tissues: No acute abnormality. Other: None. IMPRESSION: 1. No acute intracranial process.
[2024-04-22 13:14] LABS: Basophils # (auto) 0.1 10 ^3/uL (0-0.2); Basophils % (auto) 1.4 % (0.0-2.0); Eosinophils # (auto) 0.3 10 ^3/uL (0-0.8); Eosinophils % (auto) 4.6 % (0.0-7.0); Hematocrit 40.3 % (36.0-46.0); Hemoglobin 13.6 g/dL (12.2-16.2); Lymphocytes # (auto) 1.9 10 ^3/uL (0.4-5.4); Lymphocytes % (auto) 26.8 % (10.0-50.0); Mean Corpuscular Hemoglobin 31.2 pg (28.0-32.0); Mean Corpuscular Hgb Conc. 33.8 g/dL (32.0-36.0); Mean Corpuscular Volume 92.5 fL (80.0-100.0); Monocytes # (auto) 0.6 10 ^3/uL (0-1.3); Monocytes % (auto) 8.8 % (0.0-12.0); Neutrophils # (auto) 4.1 10 ^3/uL (1.6-8.6); Neutrophils % (auto) 58.4 % (37.0-80.0); Platelet Count (auto) 269 10^3/uL (140-450); Red Blood Cells 4.35 10^6/uL (4.0-5.20); Red Cell Distribution Width 15.1 % (11.8-14.3); White Blood Cell 6.9 10^3/uL (4.4-10.8)
[2024-04-22 13:27] LABS: Chloride 101 mmol/L (98-107); Potassium 3.1 mmol/L (3.5-5.1); Sodium 142 mmol/L (136-145)
[2024-04-22 13:28] LABS: Anion Gap 10 (5-15); Carbon Dioxide 31 mmol/L (20-31)
[2024-04-22 13:34] LABS: BUN/Creatinine Ratio 16.3 (10.0-20.0); Blood Urea Nitrogen 13 mg/dL (9-23); Glucose 95 mg/dL (74-106)
[2024-04-22 14:00] VITALS: BP 165/84; PULSE 81; RESP 18; TEMP 98.7; O2SAT 96
[2024-04-22] MEDS: POTASSIUM CHL 20 Meq TABLET PO ONE (14:03)
--- NOTE | 2024-04-26 09:53 | ECG ---
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
== END 2024-04-22 15:02 | disposition home or self-care (01) ==
LOC: ER 11:20
DX: E87.6 Hypokalemia (principal); F15.10 Other stimulant abuse, uncomplicated; I12.9 Hypertensive chronic kidney disease with stage 1 through stage 4 chronic kidney disease, or unspecified chronic kidney disease; N18.9 Chronic kidney disease, unspecified; E78.5 Hyperlipidemia, unspecified; M10.9 Gout, unspecified; E03.9 Hypothyroidism, unspecified; Z90.49 Acquired absence of other specified parts of digestive tract
CPT/HCPCS: 36415; 70450; 80048; 83735; 85025; 93005

== ENCOUNTER → 2024-05-23 | Outpatient (CLI) | payer OTHER, MEDICAID ==
[2024-05-23 16:22] LABS: Chloride 107 mmol/L (98-107); Sodium 140 mmol/L (136-145)
[2024-05-23 16:23] LABS: Anion Gap 7 (5-15); Carbon Dioxide 26 mmol/L (20-31)
[2024-05-23 16:24] LABS: Calcium 9.9 mg/dL (8.7-10.4)
[2024-05-23 16:28] LABS: BUN/Creatinine Ratio 22.4 (10.0-20.0); Blood Urea Nitrogen 22 mg/dL (9-23); Glucose 93 mg/dL (74-106)
[2024-05-23 16:34] LABS: Uric Acid 10.2 mg/dL (3.1-7.8)
== END | disposition home or self-care (01) ==
LOC: LAB 15:10
PROVIDERS: ATTEND Internal Medicine
DX: M10.9 Gout, unspecified (principal); R73.03 Prediabetes
CPT/HCPCS: 36415; 80048; 84550

== ENCOUNTER → 2024-06-29 | Outpatient (CLI) | payer OTHER, MEDICAID ==
[2024-06-29 15:21] LABS: Basophils # (auto) 0 10 ^3/uL (0-0.2); Basophils % (auto) 0.9 % (0.0-2.0); Eosinophils # (auto) 0.4 10 ^3/uL (0-0.8); Eosinophils % (auto) 7.3 % (0.0-7.0); Hematocrit 34.7 % (36.0-46.0); Hemoglobin 11.8 g/dL (12.2-16.2); Lymphocytes % (auto) 38.9 % (10.0-50.0); Mean Corpuscular Hgb Conc. 33.9 g/dL (32.0-36.0); Mean Corpuscular Volume 94.5 fL (80.0-100.0); Monocytes # (auto) 0.5 10 ^3/uL (0-1.3); Monocytes % (auto) 9.4 % (0.0-12.0); Neutrophils # (auto) 2.2 10 ^3/uL (1.6-8.6); Neutrophils % (auto) 43.5 % (37.0-80.0); Nucleated Red Blood Cells % 0.2 %; Platelet Count (auto) 282 10^3/uL (140-450); Red Blood Cells 3.67 10^6/uL (4.0-5.20); Red Cell Distribution Width 15.6 % (11.8-14.3)
[2024-06-29 15:34] LABS: Urine Amorphous Crystal FEW /hpf (None Seen); Urine Bacteria FEW /hpf (None Seen); Urine Blood Negative /uL (Negative); Urine Clarity Turbid (Clear); Urine Color Light-Yellow (Yellow); Urine Protein, UAD Negative (Negative); Urine Specific Gravity 1.008 (1.001-1.035); Urine Squamous Epithelial Cell FEW /hpf (<5); Urine Urobilinogen Normal (Negative); Urine WBC 14 /hpf (0 - 5)
[2024-06-29 15:39] LABS: Calcium 9.7 mg/dL (8.7-10.4)
[2024-06-29 15:43] LABS: Creatinine, Urine 65.85 mg/dL (30.0-125.0); Uric Acid 4.4 mg/dL (3.1-7.8)
[2024-06-29 15:44] LABS: BUN/Creatinine Ratio 16.8 (10.0-20.0)
[2024-06-29 15:45] LABS: Albumin 4.2 g/dL (3.2-4.8)
[2024-06-29 15:46] LABS: Phosphorus 4.5 mg/dL (2.4-5.1)
== END | disposition home or self-care (01) ==
LOC: LAB 14:38
PROVIDERS: ATTEND Internal Medicine
DX: E11.21 Type 2 diabetes mellitus with diabetic nephropathy (principal); E11.22 Type 2 diabetes mellitus with diabetic chronic kidney disease; N18.30 Chronic kidney disease, stage 3 unspecified; N39.0 Urinary tract infection, site not specified; R80.9 Proteinuria, unspecified; E21.3 Hyperparathyroidism, unspecified; M10.9 Gout, unspecified; E55.9 Vitamin D deficiency, unspecified; D63.1 Anemia in chronic kidney disease
CPT/HCPCS: 36415; 80069; 81001; 82043; 82570; 83970; 84156; 84550; 85025

== ENCOUNTER 2024-07-20 03:03 | Emergency (ER) | payer OTHER, MEDICAID ==
[~2024-07-20] VITALS: Ht 160 cm; Wt 77.1 kg
[2024-07-20 03:11] VITALS: BP 106/60; PULSE 80; RESP 16
--- NOTE | 2024-07-20 03:43 | ED.PDOC ---
Musculoskeletal HPI Comments 69 year old female presents to ER with complaints of bilateral leg pain x 5 days. Patient presents to ER VIA EMS, reporting that she has been experiencing bilateral leg pain x 5 days. Notes her pain is getting better but reports she is still experiencing 3/10 bilateral leg pain prompting her to come to ER for further evaluation. Patient also reports mild pain localized to abrasion on left forearm x 1 day and presents to ER in no distress with vitals stable. Denies fever, body aches, chills, shortness of breath, chest pain, headache, numbness/tingling, calf pain, falls or any further symptoms/complaints Chief Complaint: Lower Extremity Time Seen by MD: 03:17 Primary Care Provider: MIGDALIA Reviewed Notes: Nurses Notes, Medications, Allergies Allergies: Coded Allergies: BARNEY Inhibitors (Verified Allergy, Severe, 04/14/23) Angiotensin Receptor Blockers (Verified Allergy, Severe, 04/14/23) Allergy History Not Known (Verified Allergy, Unknown, 09/29/20) Enalapril (Verified Allergy, Unknown, 09/29/20) Penicillins (Verified Allergy, Unknown, 09/29/20) Sulfa Drugs (Verified Allergy, Unknown, 04/14/23) Uncoded Allergies: ARBS (Allergy, Unknown, 09/29/20) SULFA (Allergy, Unknown, 09/29/20) Home Meds Active Scripts Acetaminophen (Tylenol) 325 Mg Tb, 325 MG PO Q8HP PRN, #7 TAB 0 Refills Prov:RADHA DAVIS RESIDENT 11/26/23 Levofloxacin Hemihydrate (LEVOFLOXACIN) 500 Mg Tab, 1 TAB PO DAILY, #7 TAB 0 Refills Prov:RADHA DAVIS RESIDENT 11/26/23 Reported Medications Hydroxyzine Hcl (Hydroxyzine Hcl) 25 Mg Tab, 1 TAB PO DAILY 11/26/23 Methocarbamol (Methocarbamol) 750 Mg Tab, 1 TAB PO BID 11/26/23 Gabapentin (Gabapentin) 600 Mg Tab, 600 MG PO TID, TAB 12/29/22 Levothyroxine Sodium (Levothyroxine Sodium) 25 Mcg Tab, 25 MCG PO DAILY, TAB 04/03/22 Apixaban Base (ELIQUIS) 5 Mg Tab, 5 MG PO BID, TAB 11/01/21 Carvedilol (Coreg) 3.125 Mg Tab, 1 TAB PO BID, #180 TAB 1 Refill 07/03/19 Information Source: Patient Mode of Arrival: EMS Past Medical History PAST MEDICAL HISTORY: Anemia, CKF, Gout, High Lipids, HTN, Thyroid Surgical History: Cholecystectomy Surgical History (Other): Right Knee surgery 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 SUPERVISOR [employer]MODULE ASSEMBLY History Family History Family History: Unknown Social History Smoker: Non-Smoker Alcohol: Heavy Drugs: Marijuana, Methamphetamine Lives In: Home Constitutional: denies: chills, diaphoresis, fatigue, fever, malaise, sweats, weakness, others EENTM: denies: blurred vision, double vision, ear bleeding, ear discharge, ear drainage, ear pain, ear ringing, eye pain, eye redness, hearing loss, mouth pain, mouth swelling, nasal discharge, nose bleeding, nose congestion, nose pain, photophobia, tearing, throat pain, throat swelling, voice changes, others Respiratory: denies: cough, hemoptysis, orthopnea, SOB at rest, shortness of breath, SOB with excertion, stridor, wheezing, others Cardiovascular: denies: chest pain, dizzy spells, diaphoresis, Dyspnea on exertion, edema, irregular heart beat, left arm pain, lightheadedness, palpitations, PND, syncope, others Gastrointestinal: denies: abdomen distended, abdominal pain, blood streaked bowels, constipated, diarrhea, dysphagia, difficulty swallowing, hematemesis, melena, nausea, poor appetite, poor fluid intake, rectal bleeding, rectal pain, vomiting, others Genitourinary: denies: abnormal vagina bleeding, burning, dyspareunia, dysuria, flank pain, frequency, hematuria, incontinence, pain, , vagina discharge, urgency, others Neurological: denies: dizziness, fainting, headache, left sided numbness, left sided weakness, numbness, paresthesia, pre-existing deficit, right sided numbness, right sided weakness, seizure, speech problems, tingling, tremors, weakness, others Musculoskeletal: reports: others (As stated in HPI) Integumetry: denies: bruises, change in color, change in hair/nails, dryness, laceration, lesions, lumps, rash, wounds, others Allergic/Immunocompromised: denies: Difficulty Healing, Frequent Infections, Hives, Itching, others Hematologic/Lymphatic: denies: anemia, blood clots, easy bleeding, easy bruising, swollen glands, others Endocrine: denies: excessive hunger, excessive sweating, excessive thirst, excessive urination, flushing, intolerance to cold, intolerance to heat, unexplained weight gain, unexplained weight loss, others Psychiatric: denies: anxiety, bipolar disorder, depression, hopeless, panic disorder, schizophrenia, sleepless, suicidal, others Physical Exam General Appearance: No Apparent Distress, Obese HEENT: PERRL/EOMI Neck: Full Range of Motion, Non-Tender, Normal Respiratory: Chest Non-Tender, Lungs Clear, No Accessory Muscle Use, No Respiratory Distress, Normal Breath Sounds Cardiovascular: No Murmur, No Gallop, Regular Rate/Rhythm Breast Exam: Deferred Gastrointestinal: NOT DONE Genitalia: Deferred Pelvic: Deferred Rectal: Deferred Extremities: No calf tenderness, Normal capillary refill, Normal range of motion Neurologic: Alert, 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 No signs of infection noted.) Peripheral Pulses: 2+ femoral (R), 2+ femoral (L), 2+ dorsalis pedis (R), 2+ dorsalis pedis (L), 2+ Radial (R), 2+ Radial (L), 2+ Brachial (R), 2+ Brachial (L) Lymphatic: No Adenopathy Was a procedure done? Was a procedure done?: No Sedation Sedation?: No Differential Diagnosis EXT Differential Diagnosis: Cellulitis, Deep Vein Thrombosis, Fracture, Dislocation, Neurovascular injury X-Ray, Labs, Meds, VS Vital Signs Date Time Temp Pulse Resp B/P (MAP) Pulse Ox O2 Delivery O2 Flow Rate FiO2 07/20/24 04:15 96 Room Air* 0 21 07/20/24 03:11 99.0 80 16 106/60 (75) 96 Lab Test 07/20/24 04:01 Range/Units White Blood Count 9.3 4.4-10.8 10^3/uL Red Blood Count 3.59 L 4.0-5.20 10^6/uL Hemoglobin 11.7 L 12.2-16.2 g/dL Hematocrit 34.4 L 36.0-46.0 % Mean Corpuscular Volume 95.8 80.0-100.0 fL Mean Corpuscular Hemoglobin 32.5 H 28.0-32.0 pg Mean Corpuscular Hemoglobin Concent 33.9 32.0-36.0 g/dL Red Cell Distribution Width 15.0 H 11.8-14.3 % Platelet Count 238 140-450 10^3/uL Mean Platelet Volume 7.5 6.9-10.8 fL Neutrophils (%) (Auto) 70.1 37.0-80.0 % Lymphocytes (%) (Auto) 14.0 10.0-50.0 % Monocytes (%) (Auto) 12.1 H 0.0-12.0 % Eosinophils (%) (Auto) 3.1 0.0-7.0 % Basophils (%) (Auto) 0.7 0.0-2.0 % Neutrophils # (Auto) 6.6 1.6-8.6 10 ^3/uL Lymphocytes # (Auto) 1.3 0.4-5.4 10 ^3/uL Monocytes # (Auto) 1.1 0-1.3 10 ^3/uL Eosinophils # (Auto) 0.3 0-0.8 10 ^3/uL Basophils # (Auto) 0.1 0-0.2 10 ^3/uL Nucleated Red Blood Cells 0.0 % Sodium Level 134 L 136-145 mmol/L Potassium Level 3.8 3.5-5.1 mmol/L Chloride Level 101 98-107 mmol/L Carbon Dioxide Level 24 20-31 mmol/L Anion Gap 9 5-15 Blood Urea Nitrogen 26 H 9-23 mg/dL Creatinine 1.19 H 0.550-1.02 mg/dL Glomerular Filtration Rate Calc 50 >90 mL/min BUN/Creatinine Ratio 21.8 H 10.0-20.0 Serum Glucose 131 H 74-106 mg/dL Calcium Level 9.6 8.7-10.4 mg/dL Plasma/Serum Blood Alcohol 4.0 <10 mg/dL Current Medications Medications (Trade) Dose Ordered Sig/Eitan Route Start Time Stop Time Status Last Admin Acetaminophen/ Hydrocodone Bitart ([place] 5/325MG Tab) 1 tab ONCE ONCE PO 07/20/24 03:45 07/20/24 03:46 DC 07/20/24 03:48 Ondansetron HCl (Zofran Po) 4 mg ONCE ONCE PO 07/20/24 03:45 2/5/25 03:46 DC 07/20/24 03:49 CBC reviewed without any significant abnormalities BMP reviewed- GFR 50, creatinine 1.19, BUN 26 Serum blood alcohol reviewed - 4 [place] 5/325 mg p.o. ordered Zofran 4 mg p.o. ordered Patient had improvement in symptoms and in no distress prior to discharge Advised to drink plenty of fluids methamphetamine/cannabis/smoking cessation discussed and advised Advised to follow up with PCP in 1-2 days Patient verbalized understanding and agreeable with current plan of care Advised to return to ER immediately if symptoms worsen Time of 1ST Reevaluation: 03:40 Reevaluation 1ST: N/A Time of 2ND Reevaluation: 04:38 Reevaluation 2ND: Improved Patient Education/Counseling: Diagnosis, Treatment, Prognosis, Need For Follow Up Family Education/Counseling: No Family Present Departure 1 Departure Time of Disposition: 05:12 Impression: Primary Impression: Musculoskeletal pain of left lower extremity Additional Impressions: Musculoskeletal pain of right lower extremity Abrasion of forearm, left Qualified Codes: S50.812A - Abrasion of left forearm, initial encounter Polysubstance abuse Disposition: 01 HOME / SELF CARE / HOMELESS Condition: Stable Discharged With: Friend Critical Care Note Critical Care Time?: No Stability Stability form required: No Heart Score Heart Score: Heart Score Response (Comments) Value History N/A 0 EKG N/A 0 Age N/A 0 Risk Factors N/A 0 Troponin N/A 0 Total 0 ISAMAR HUMPHREYS Jul 20, 2024 03:43
[2024-07-20] MEDS: HYDROcodone-ACET 5/325MG TAB PO ONE (03:48)
[2024-07-20] MEDS: ONDANSETRON ODT 4 MG TAB PO ONE (03:49)
[2024-07-20 04:15] VITALS: O2SAT 96
[2024-07-20 04:26] LABS: Basophils # (auto) 0.1 10 ^3/uL (0-0.2); Basophils % (auto) 0.7 % (0.0-2.0); Eosinophils # (auto) 0.3 10 ^3/uL (0-0.8); Eosinophils % (auto) 3.1 % (0.0-7.0); Hematocrit 34.4 % (36.0-46.0); Hemoglobin 11.7 g/dL (12.2-16.2); Lymphocytes # (auto) 1.3 10 ^3/uL (0.4-5.4); Mean Corpuscular Hemoglobin 32.5 pg (28.0-32.0); Mean Corpuscular Hgb Conc. 33.9 g/dL (32.0-36.0); Mean Corpuscular Volume 95.8 fL (80.0-100.0); Monocytes # (auto) 1.1 10 ^3/uL (0-1.3); Monocytes % (auto) 12.1 % (0.0-12.0); Neutrophils # (auto) 6.6 10 ^3/uL (1.6-8.6); Neutrophils % (auto) 70.1 % (37.0-80.0); Platelet Count (auto) 238 10^3/uL (140-450); Red Blood Cells 3.59 10^6/uL (4.0-5.20); White Blood Cell 9.3 10^3/uL (4.4-10.8)
[2024-07-20 04:34] LABS: Chloride 101 mmol/L (98-107); Potassium 3.8 mmol/L (3.5-5.1)
[2024-07-20 04:35] LABS: Anion Gap 9 (5-15); Calcium 9.6 mg/dL (8.7-10.4); Carbon Dioxide 24 mmol/L (20-31)
[2024-07-20 04:40] LABS: BUN/Creatinine Ratio 21.8 (10.0-20.0)
[2024-07-20 04:59] LABS: Blood Urea Nitrogen 26 mg/dL (9-23); Glucose 131 mg/dL (74-106); Sodium 134 mmol/L (136-145)
== END 2024-07-20 05:38 | disposition home or self-care (01) ==
LOC: EDBD 03:03 → ER 03:03
DX: S50.812A Abrasion of left forearm, initial encounter (principal); M79.605 Pain in left leg; M79.604 Pain in right leg; E78.5 Hyperlipidemia, unspecified; E03.9 Hypothyroidism, unspecified; Z88.0 Allergy status to penicillin; Z88.2 Allergy status to sulfonamides; Z88.6 Allergy status to analgesic agent; Z88.8 Allergy status to other drugs, medicaments and biological substances; Z79.899 Other long term (current) drug therapy; Z90.49 Acquired absence of other specified parts of digestive tract; Z98.890 Other specified postprocedural states; F12.90 Cannabis use, unspecified, uncomplicated; F15.90 Other stimulant use, unspecified, uncomplicated; I12.9 Hypertensive chronic kidney disease with stage 1 through stage 4 chronic kidney disease, or unspecified chronic kidney disease; N18.9 Chronic kidney disease, unspecified; X58.XXXA Exposure to other specified factors, initial encounter; Y93.89 Activity, other specified; Y92.89 Other specified places as the place of occurrence of the external cause; Y99.8 Other external cause status
CPT/HCPCS: 36415; 80048; 80320; 85025; 99283; Q0162

== ENCOUNTER 2024-08-26 22:11 | Inpatient (IN) | payer OTHER, MEDICAID ==
[~2024-08-26] VITALS: Ht 170.2 cm; Wt 83.6 kg
[2024-08-26 22:47] VITALS: PULSE 81; RESP 18; O2SAT 93
--- NOTE | 2024-08-26 23:00 | ED.PDOC ---
SOB-HPI HPI Comments 69 year old female came to ER via EMS due to shortness of breath. Patient does have history of hypertension, CKF, CHF and methamphetamine abuse. She has been having productive cough and shortness breath with the past 2 days progressively worsening. Also associated with abdominal pain, nausea, and myalgia. Patient w as seen saturating at 86% on room air on scene. Patient was given breathing treatments, and saturation improved to 94% Chief Complaint: Shortness of Breath Time Seen by MD: 22:58 Primary Care Provider: MIGDALIA Reviewed notes: Nurses Notes Information Source: Patient Mode of Arrival: EMS Review of Systems REVIEW OF SYSTEMS: No fever, no chills, or fatigue HEENT: No sore throat, no earache, no congestion, no neck pain. Cardiac: No chest pain. No palpitations. Lungs: (+) shortness of breath, (+) cough. GI: No nausea, no vomiting, no diarrhea, no constipation, no abdominal pain : No dysuria, frequency, or urgency. No hematuria. Musculoskeletal: No joint pain , no joint swelling, no extremity edema. Skin: No rash, no itching. Neuro: No headache, no dizziness, no weakness Vital Signs Vital Signs Date Time Temp Pulse Resp B/P (MAP) Pulse Ox O2 Delivery O2 Flow Rate FiO2 08/27/24 00:33 184/99 08/27/24 00:00 85 08/26/24 22:47 99.4 18 93 99.4 08/26/24 22:47 Nasal Cannula* 4 36 Physical Exam General: Awake, alert and oriented. No acute distress. Skin: Skin in warm, dry and intact. Appropriate color for ethnicity. Nailbeds pink with no cyanosis. HEENT: The head is normocephalic and atraumatic. Conjunctivae are clear without exudates or hemorrhage. Sclera is non-icteric. EOM are intact. No signs of nystagmus. Eyelids are normal in appearance without swelling or lesions. Oral mucosa is pink and moist Neck: The neck is supple with normal range of motion. No JVD. Cardiac: Heart rate and rhythm are normal. No murmurs, gallops, or rubs are auscultated. Respiratory: No signs of respiratory distress. Rales bilaterally. Patient's saturations to 86% on room air while speaking. Abdominal: Abdomen is soft, non-tender without distention. Bowel sounds are pres ent and normoactive in all four quadrants. Extremities: Right lower extremity edema, greater than left. Varicose veins noted. Posterior calf tenderness to palpation on the right. Neurological: The patient is awake, alert and oriented to person, place, and time with normal speech. Speech is clear. There is no facial asymmetry. Psychiatric: Appropriate mood and affect. Good judgement and insight. No visual or auditory hallucinations. Past Medical History PAST MEDICAL HISTORY: Anemia, CHF, CKF, Gout, High Lipids, HTN, Thyroid Surgical History: Cholecystectomy HEMATOLOGY TECHNOLOGIST History: No Pertinent HEMATOLOGY TECHNOLOGIST History Family History Family History: Reviewed,noncontributory to illness Social History Smoker: Non-Smoker Alcohol: Occasionally Drugs: Marijuana, Methamphetamine Lives In: Home Was a procedure done? Was a procedure done?: No Differential Dx Differential Diagnosis: Cardiogenic Shock, CHF, COPD, Pneumonia, PSVT, Respiratory Distress X-Ray, Labs, Meds, VS Vital Signs Date Time Temp Pulse Resp B/P (MAP) Pulse Ox O2 Delivery O2 Flow Rate FiO2 08/27/24 00:33 184/99 08/27/24 00:24 184/99 08/27/24 00:00 85 08/26/24 22:47 99.4 81 18 159/82 (107) 93 99.4 08/26/24 22:47 81 18 93 Nasal Cannula* 4 36 08/26/24 22:13 80 08/26/24 22:11 98.0 83 22 165/89 (114) 94 98.0 Lab Test 08/26/24 23:45 08/26/24 23:43 08/26/24 23:35 08/26/24 22:50 Range/Units Troponin I High Sensitivity 18 20 </=34 ng/L Blood Gas Specimen Type Arterial Blood Gas Sample Site Right radial Blood Gas Patient Temperature 37.0 Arterial Blood Date Drawn [id number] Arterial Blood pH 7.426 7.350-7.450 Arterial Blood Partial Pressure CO2 36.0 32.0-45.0 mmHg Arterial Blood Partial Pressure O2 53.5 *L 83.0-108.0 mmHg Arterial Blood HCO3 23.1 21.0-28.0 mmol/L Arterial Blood Oxygen Saturation 87.5 L 94.0-98.0 % Arterial Blood Base Excess -0.8 -2.0-3.0 mmol/L Arterial Blood Oxyhemoglobin 86.4 L 94.0-98.0 % Arterial Blood Carboxyhemoglobin 1.1 0.5-1.5 % Arterial Blood Methemoglobin 0.2 0.0-1.5 % Nathan Test Yes Blood Gas Total Hemoglobin 12.80 12.0-16.0 g/dL Blood Gas Liter Flow 4.00 Blood Gas Modality Nasal cannula FiO2 % 36.0 Specimen Drawn By Blood Gas Critical Value Read Back Yes Blood Gas Notified Whom carolyn Sanchez md Blood Gas Notified Time [id number] Blood Gas Notified By Influenza Type A Antigen Negative Negative Influenza Type B Antigen Negative Negative SARS-CoV-2 Antigen (Rapid) Positive NEGATIVE White Blood Count 5.1 4.4-10.8 10^3/uL Red Blood Count 3.71 L 4.0-5.20 10^6/uL Hemoglobin 12.0 L 12.2-16.2 g/dL Hematocrit 35.3 L 36.0-46.0 % Mean Corpuscular Volume 95.2 80.0-100.0 fL Mean Corpuscular Hemoglobin 32.3 H 28.0-32.0 pg Mean Corpuscular Hemoglobin Concent 33.9 32.0-36.0 g/dL Red Cell Distribution Width 14.8 H 11.8-14.3 % Platelet Count 220 140-450 10^3/uL Mean Platelet Volume 7.7 6.9-10.8 fL Neutrophils (%) (Auto) 62.8 37.0-80.0 % Lymphocytes (%) (Auto) 17.2 10.0-50.0 % Monocytes (%) (Auto) 17.7 H 0.0-12.0 % Eosinophils (%) (Auto) 1.5 0.0-7.0 % Basophils (%) (Auto) 0.8 0.0-2.0 % Neutrophils # (Auto) 3.2 1.6-8.6 10 ^3/uL Lymphocytes # (Auto) 0.9 0.4-5.4 10 ^3/uL Monocytes # (Auto) 0.9 0-1.3 10 ^3/uL Eosinophils # (Auto) 0.1 0-0.8 10 ^3/uL Basophils # (Auto) 0 0-0.2 10 ^3/uL Nucleated Red Blood Cells 0.1 % D-Dimer, Quantitative 0.45 0.0-0.49 mg/L FEU Sodium Level 133 L 136-145 mmol/L Potassium Level 3.7 3.5-5.1 mmol/L Chloride Level 99 98-107 mmol/L Carbon Dioxide Level 25 20-31 mmol/L Anion Gap 9 5-15 Blood Urea Nitrogen 13 9-23 mg/dL Creatinine 1.07 H 0.550-1.02 mg/dL Glomerular Filtration Rate Calc 57 >90 mL/min BUN/Creatinine Ratio 12.1 10.0-20.0 Serum Glucose 101 74-106 mg/dL Lactic Acid Level 0.7 0.4-2.0 mmol/L Calcium Level 9.7 8.7-10.4 mg/dL Total Bilirubin 0.5 0.2-1.0 mg/dL Aspartate Amino Transferase (AST) 14 13-40 U/L Alanine Aminotransferase (ALT) < 9 7-40 U/L Alkaline Phosphatase 67 46-116 U/L B-Type Natriuretic Peptide 1382.23 0-100 pg/mL Total Protein 6.8 5.7-8.2 g/dL Albumin 4.4 3.2-4.8 g/dL Current Medications Medications (Trade) Dose Ordered Sig/Eitan Route Start Time Stop Time Status Last Admin Furosemide (Lasix Injection) 40 mg ONCE ONCE IV 08/26/24 23:00 08/26/24 23:01 DC 08/27/24 00:24 Nitroglycerin (Nitrodur 0.4MG/ Hr) 1 patch ONCE ONCE TD 08/27/24 00:30 08/27/24 00:31 DC 08/27/24 00:33 CHEST RADIOGRAPH Indication: Shortness of breath Technique: Single frontal view of the chest was obtained Comparison: XY CHEST PORTABLE on DOS: 02/07/24 Findings/impression: Prominent interstitial markings. No focal consolidation or pneumothorax. No pleural effusions Time of 1ST Reevaluation: 22:44 Reevaluation 1ST: Unchanged Patient Education/Counseling: Diagnosis, Treatment Family Education/Counseling: No Family Present Departure 1 Departure Time of Disposition: 23:35 Impression: Primary Impression: Hypoxia Additional Impressions: CHF exacerbation Deep vein thrombosis (DVT) of left lower extremity COVID-19 virus infection Hyponatremia Disposition: ADMITTED INPATIENT Condition: Stable Comments 69-year-old female who presents to the emergency department with 2 days of shortness of breath. Echo May 2024 showed grade 1 diastolic dysfunction ejection fraction of 55%. Today patient's BNP is elevated, she was hypoxic. Lasix administered in the emergency department. Patient admitted for further treatment, evaluation and monitoring. Extensive evaluation was performed in attempt to identify or rule out: (See differential diagnosis section) The following tests were ordered, and results were reviewed by me: (See diagnostic results section) The following test were independently interpreted by me: EKG, I reviewed and agreed with the following test results read by other providers: Chest x-ray I reviewed the following notes from the pt's past medical encounters: Encounter November of 2023 for cellulitis. Additional information was gathered from interviewing the following independent historians: N/A Discussion of management or test interpretation with external physician/other qualified health progressive care manager: N/A Addressed an acute or chronic illness that poses a threat to life or bodily function: Hypoxia, CHF exacerbation Decision regarding hospitalization or escalation of hospital level of care: Risk and benefits of admission for further treatment of patient's condition was considered. Due to patient's current clinical condition, high risk of decline and poor outcome if discharged and need for further inpatient management and monitoring, patient will be admitted to the hospital. Drug therapy requiring intensive monitoring for toxicity: IV furosemide Parenteral controlled substances: N/A Decision regarding elective major surgery with identified patient or procedure risk factors: N/A Decision regarding emergency major surgery: N/A Decision not to resuscitate or to de-escalate care because of poor prognosis: N/A Diagnosis or treatment significantly limited by social determinants of health: N/A Critical Care Note Critical Care Time?: Yes (35 min-critical care time only) Critical care comment: Hypoxia, CHF exacerbation Due to a high probability of clinically significant, life threatening deterioration, the patient required my highest level of preparedness to intervene emergently and I personally spent this critical care time directly and personally managing the patient. This critical care time included obtaining a history; examining the patient; pulse oximetry; ordering and review of studies; arranging urgent treatment with development of a management plan; evaluation of patient's response to treatment; frequent reassessment; and, discussions with other providers. This critical care time was performed to assess and manage the high probability of imminent, life-threatening deterioration that could result in multi-organ failure. It was exclusive of separately billable procedures and treating other patients and teaching time. Please see my other sections and the rest of the note for further information on patient assessment and treatment. Stability Stability form required: No Heart Score Heart Score: Heart Score Response (Comments) Value History N/A 0 EKG N/A 0 Age N/A 0 Risk Factors N/A 0 Troponin N/A 0 Total 0 I personally scribed for CAROLYN SANCHEZ MD ([email or web address]) on 08/26/24 at 23:00. Electronically submitted by Antonio West ([employer]). I personally scribed for CAROLYN SANCHEZ MD ([email or web address]) on 08/27/24 at 00:16. Electronically submitted by Antonio West ([employer]). CAROLYN SANCHEZ MD Aug 26, 2024 23:00
[2024-08-26 23:08] LABS: Basophils # (auto) 0 10 ^3/uL (0-0.2); Basophils % (auto) 0.8 % (0.0-2.0); Eosinophils # (auto) 0.1 10 ^3/uL (0-0.8); Eosinophils % (auto) 1.5 % (0.0-7.0); Hematocrit 35.3 % (36.0-46.0); Lymphocytes # (auto) 0.9 10 ^3/uL (0.4-5.4); Lymphocytes % (auto) 17.2 % (10.0-50.0); Mean Corpuscular Hemoglobin 32.3 pg (28.0-32.0); Mean Corpuscular Hgb Conc. 33.9 g/dL (32.0-36.0); Mean Corpuscular Volume 95.2 fL (80.0-100.0); Monocytes # (auto) 0.9 10 ^3/uL (0-1.3); Monocytes % (auto) 17.7 % (0.0-12.0); Neutrophils # (auto) 3.2 10 ^3/uL (1.6-8.6); Neutrophils % (auto) 62.8 % (37.0-80.0); Nucleated Red Blood Cells % 0.1 %; Platelet Count (auto) 220 10^3/uL (140-450); Red Blood Cells 3.71 10^6/uL (4.0-5.20); Red Cell Distribution Width 14.8 % (11.8-14.3); White Blood Cell 5.1 10^3/uL (4.4-10.8)
--- NOTE | 2024-08-26 23:09 | DVH ---
CHEST RADIOGRAPH Indication: Shortness of breath Technique: Single frontal view of the chest was obtained Comparison: XY CHEST PORTABLE on DOS: 02/07/24 Findings/impression: Prominent interstitial markings. No focal consolidation or pneumothorax. No ple ural effusions
[2024-08-26 23:28] LABS: Albumin 4.4 g/dL (3.2-4.8); Alkaline Phosphatase 67 U/L (46-116); Anion Gap 9 (5-15); Aspartate Aminotransferase 14 U/L (13-40); BUN/Creatinine Ratio 12.1 (10.0-20.0); Blood Urea Nitrogen 13 mg/dL (9-23); Calcium 9.7 mg/dL (8.7-10.4); Carbon Dioxide 25 mmol/L (20-31); Chloride 99 mmol/L (98-107); Glucose 101 mg/dL (74-106); Potassium 3.7 mmol/L (3.5-5.1); Total Protein 6.8 g/dL (5.7-8.2)
[2024-08-26 23:29] LABS: Bilirubin, Total 0.5 mg/dL (0.2-1.0)
[2024-08-26 23:30] LABS: Alanine Aminotransferase < 9 U/L (7-40); Sodium 133 mmol/L (136-145)
[2024-08-26 23:49] LABS: Base Excess -0.8 mmol/L (-2.0-3.0)
[2024-08-27] VITALS (17 sets, daily range): BP systolic 94–157; BP diastolic 63–92; PULSE 64–92; RESP 16–20; TEMP 97.5–100.8; O2SAT 89–97
[2024-08-27] MEDS: FUROSEMIDE 40 MG/4 ML VIAL IV ONE (00:24)
[2024-08-27] MEDS: NITROGLYCERIN 0.4MG/HR TOPICAL PATCH TD ONE (00:33)
--- NOTE | 2024-08-27 00:49 | DVH ---
Bilateral lower extremity venous duplex Clinical History: Rule out DVT Comparison: LT LOWER DVT on DOS: 09/29/20 Technique: Duplex Doppler evaluation of the deep venous systems of both lower extremities from the common femora l veins to the popliteal veins including color Doppler and spectral/pulsed waveform analysis was perf ormed. Findings: RIGHT SIDE: The common femoral vein demonstrates appropriate compressibility and waveform variability. There is compressibility/patency of the great saphenous vein at the proximal thigh. The femoral vein demonstrates appropriate compressibility and waveform variability. The deep femoral vein demonstrates appropriate compressibility and waveform variability. The popliteal vein demonstrates appropriate compressibility and waveform variability. There is normal compressibility at the tibioperoneal trunk. LEFT SIDE: Nonocclusive DVT seen in the left common femoral vein and superficial femoral vein proximally . Bilateral complex appearing Ferraro's cyst measuring up to 6.6 cm. Impression: Nonocclusive DVT in the left common femoral vein and superficial femoral vein proximally. Safety Consultant has relayed critical findings to the ordering provider.
[2024-08-27 01:00] LABS: Rapid Influenza A Negative (Negative); Rapid Influenza B Negative (Negative)
[2024-08-27] MEDS ORDERED: MORPHINE SULFATE INJ 2 MG/ml SYRG IV PRN (01:00)
[2024-08-27] MEDS ORDERED: ONDANSETRON HCL 4 MG/2 ML VIAL IV PRN (01:00)
[2024-08-27] MEDS ORDERED: ACETAMINOPHEN 325 MG TAB PO PRN (01:00)
[2024-08-27 01:02] LABS: COVID19 ANTIGEN SOFIA FIA POSITIVE (NEGATIVE)
[2024-08-27] MEDS ORDERED: VALSARTAN 80 MG TAB PO ONE (02:00)
[2024-08-27] MEDS: levoFLOXacin 500 MG TAB PO SCH (02:35)
[2024-08-27] MEDS ORDERED: REMDESIVIR PER PHARMACY 0 ML IV SCH (02:45)
--- NOTE | 2024-08-27 02:54 | DVHHPRES ---
History of Present Illness Resident Creating Document: ARTEMIO PEDRO Reason for Visit: Shortness of breath History of Present Illness Patient is a 69 year old female presented to the ED via EMS due to shortness of breath for 2 days. Patient has been having productive cough and shortness breath with the past 2 days that progressively worsened. She also noticed abdominal pain, nausea, and myalgia. She however denied fever,dizziness, vomiting, or changes in bowel movement. At scene when EMS arrived, patient was saturating at 86% on room air. She was given breathing treatments on route to the ED that improved her O2 saturation. In the ED, patient remained breathless and also tested positive for COVID. PMHx: Anemia, CHF, CKF, Gout, High Lipids, HTN, Thyroid, DVT PShx: Cholecystectomy FHX: Reviewed,noncontributory to illness SHX: Lives with boyfriend, Marijuana, Methamphetamine Medication: Levothyroxine, carvedilol, Review of Systems Constitutional: No: Fever, Chills, Sweats, Weakness, Malaise, Other ENT: No: Ear pain, Ear discharge, Nose pain, Nose discharge, Nose congestion, Mouth pain, Mouth swelling, Throat pain, Throat swelling, Other Respiratory: Cough, Shortness of breath, SOB with excertion Cardiovascular: No: Chest Pain, Palpitations, Orthopnea, Paroxysmal Noc. Dyspnea, Edema, Lt Headedness, Other Gastrointestinal: Nausea, Abdominal Pain; No: Vomiting, Diarrhea, Constipation, Melena, Hematochezia, Other Genitourinary: No Dysuria, No Frequency, No Incontinence, No Hematuria, No Retention, No Other Musculoskeletal: No: other, neck pain, shoulder pain, arm pain, back pain, hand pain, leg pain, foot pain Skin: No: Rash, Lesions, Jaundice, Bruising, Other Neurological: No: Weakness, Numbness, Incoordination, Change in speech, Confusion, Seizures, Other Allergies: Coded Allergies: BARNEY Inhibitors (Verified Allergy, Severe, 04/14/23) Angiotensin Receptor Blockers (Verified Allergy, Severe, 04/14/23) Allergy History Not Known (Verified Allergy, Unknown, 09/29/20) Enalapril (Verified Allergy, Unknown, 09/29/20) Penicillins (Verified Allergy, Unknown, 09/29/20) Sulfa Drugs (Verified Allergy, Unknown, 04/14/23) Uncoded Allergies: ARBS (Allergy, Unknown, 09/29/20) SULFA (Allergy, Unknown, 09/29/20) Medications Current Medications Medications Dose Ordered Sig/Eitan Route Start Time Stop Time Status Last Admin Dose Admin Acetaminophen 650 mg Q6HP PRN PO 08/27/24 01:00 Ondansetron HCl 4 mg Q4HP PRN IV 08/27/24 01:00 Morphine Sulfate 2 mg Q4HPRN PRN IV 08/27/24 01:00 Enoxaparin Sodium 40 mg DAILY SC 08/27/24 10:00 Acetaminophen 325 mg Q8HP PRN PO 08/27/24 01:00 Apixaban 5 mg BID PO 08/27/24 10:00 UNV Carvedilol 3.125 mg BID PO 08/27/24 10:00 Levofloxacin 500 mg DAILY PO 08/27/24 02:30 08/27/24 02:35 500 MG Levothyroxine Sodium 25 mcg DAILY PO 08/27/24 10:00 Gabapentin 600 mg TID PO 08/27/24 06:00 Hydroxyzine HCl 25 mg DAILY PO 08/27/24 10:00 Methocarbamol 750 mg BID PO 08/27/24 10:00 Furosemide 40 mg BIDD PO 08/27/24 06:00 Valsartan 80 mg DAILY PO 08/27/24 10:00 UNV Remdesivir 0 ml @ 0 mls/hr PER PHARMACY IV 08/27/24 02:45 08/29/24 02:46 UNV Exam Vital Signs Vital Signs Date Time Temp Pulse Resp B/P (MAP) Pulse Ox O2 Delivery O2 Flow Rate FiO2 08/27/24 02:46 92 19 92 Nasal Cannula* 4 36 08/27/24 02:43 98.9 98.9 08/27/24 02:42 169/84 (112) Exam General Appearance: Alert, Oriented X3, Cooperative,Severe acute distress, Patient's saturations to 86% on room air while speaking HEENT: Atraumatic, PERRLA, EOMI, Mucous membrane moist/pink Respiratory: diminished, Rales bilaterally. Cardiovascular: Regular rate, Normal S1, Normal S2, No murmurs, no chest wall tenderness Abdominal: distention, tenderness in the epigastrium and right upper quadrant, bowel sounds present, no scars noted Extremities: No clubbing, No cyanosis, No edema, Normal pulses, No tenderness/swelling Skin: No rashes, No breakdown, No significant lesion Neuro: limited mobility, uses wheelchair, Normal speech, Sensation intact, Cranial nerves 3-12 NL, Psych/Mental Status: Mental status NL, Mood NL Labs/Xrays Labs Test 08/26/24 23:45 08/26/24 23:43 08/26/24 23:35 08/26/24 22:50 Range/Units Troponin I High Sensitivity 18 </=34 ng/L Blood Gas Specimen Type Arterial Blood Gas Sample Site Right radial Blood Gas Patient Temperature 37.0 Arterial Blood Date Drawn [id number] Arterial Blood pH 7.426 7.350-7.450 Arterial Blood Partial Pressure CO2 36.0 32.0-45.0 mmHg Arterial Blood Partial Pressure O2 53.5 *L 83.0-108.0 mmHg Arterial Blood HCO3 23.1 21.0-28.0 mmol/L Arterial Blood Oxygen Saturation 87.5 L 94.0-98.0 % Arterial Blood Base Excess -0.8 -2.0-3.0 mmol/L Arterial Blood Oxyhemoglobin 86.4 L 94.0-98.0 % Arterial Blood Carboxyhemoglobin 1.1 0.5-1.5 % Arterial Blood Methemoglobin 0.2 0.0-1.5 % Nathan Test Yes Blood Gas Total Hemoglobin 12.80 12.0-16.0 g/dL Blood Gas Liter Flow 4.00 Blood Gas Modality Nasal cannula FiO2 % 36.0 Specimen Drawn By Blood Gas Critical Value Read Back Yes Blood Gas Notified Whom kwabena Sanchez md Blood Gas Notified Time [id number] Blood Gas Notified By Influenza Type A Antigen Negative Negative Influenza Type B Antigen Negative Negative SARS-CoV-2 Antigen (Rapid) Positive NEGATIVE White Blood Count 5.1 4.4-10.8 10^3/uL Red Blood Count 3.71 L 4.0-5.20 10^6/uL Hemoglobin 12.0 L 12.2-16.2 g/dL Hematocrit 35.3 L 36.0-46.0 % Mean Corpuscular Volume 95.2 80.0-100.0 fL Mean Corpuscular Hemoglobin 32.3 H 28.0-32.0 pg Mean Corpuscular Hemoglobin Concent 33.9 32.0-36.0 g/dL Red Cell Distribution Width 14.8 H 11.8-14.3 % Platelet Count 220 140-450 10^3/uL Mean Platelet Volume 7.7 6.9-10.8 fL Neutrophils (%) (Auto) 62.8 37.0-80.0 % Lymphocytes (%) (Auto) 17.2 10.0-50.0 % Monocytes (%) (Auto) 17.7 H 0.0-12.0 % Eosinophils (%) (Auto) 1.5 0.0-7.0 % Basophils (%) (Auto) 0.8 0.0-2.0 % Neutrophils # (Auto) 3.2 1.6-8.6 10 ^3/uL Lymphocytes # (Auto) 0.9 0.4-5.4 10 ^3/uL Monocytes # (Auto) 0.9 0-1.3 10 ^3/uL Eosinophils # (Auto) 0.1 0-0.8 10 ^3/uL Basophils # (Auto) 0 0-0.2 10 ^3/uL Nucleated Red Blood Cells 0.1 % D-Dimer, Quantitative 0.45 0.0-0.49 mg/L FEU Sodium Level 133 L 136-145 mmol/L Potassium Level 3.7 3.5-5.1 mmol/L Chloride Level 99 98-107 mmol/L Carbon Dioxide Level 25 20-31 mmol/L Anion Gap 9 5-15 Blood Urea Nitrogen 13 9-23 mg/dL Creatinine 1.07 H 0.550-1.02 mg/dL Glomerular Filtration Rate Calc 57 >90 mL/min BUN/Creatinine Ratio 12.1 10.0-20.0 Serum Glucose 101 74-106 mg/dL Lactic Acid Level 0.7 0.4-2.0 mmol/L Calcium Level 9.7 8.7-10.4 mg/dL Total Bilirubin 0.5 0.2-1.0 mg/dL Aspartate Amino Transferase (AST) 14 13-40 U/L Alanine Aminotransferase (ALT) < 9 7-40 U/L Alkaline Phosphatase 67 46-116 U/L B-Type Natriuretic Peptide 1382.23 0-100 pg/mL Total Protein 6.8 5.7-8.2 g/dL Albumin 4.4 3.2-4.8 g/dL Assessment/Plan Assessment/Plan ACUTE ON CHRONIC CHF --> BNP: 1382 --> IV Furosemide --> Continue Carvedilol ACUTE HYPOXIC RESPIRATORY FAILURE --> Oxygen via 4L sating at 94% --> 86% on room air --> abg: PO2: 56, pco2: 26, Ph: 7.42 COVID pnuemonia --> OXYGEN --> Levofloxacin --> Remdesivir Hypertensive urgency --> Continue home medication --> Add Losartan 80 mg daily Chronic DVT --> Continue Lovenox Hypothyroidism --> Levothyroxine --> Get TSH Medication noncompliant --> Counseled patient the importance of medication compliance. Goal of care discussed more than 30 minutes, full code Case and plan discussed with Dr. Mancilla Plan discussed with: Patient My Orders Orders - ARTEMIO PEDRO RESIDENT Procedure Category Date Status Time Admit ADMIT 08/27/24 Transmitted 00:48 Code Status CODE 08/27/24 Transmitted 00:48 Vital Signs KARLENE 08/27/24 In Process 00:48 Review Orders With KARLENE 08/27/24 In Process Adm. 00:48 Acetaminophen Tablet PHA 08/27/24 In Process (Tylenol Tablet) 01:00 Notify Of Changes KARLENE 08/27/24 In Process From Base 00:48 Advance Directive KARLENE 08/27/24 In Process 00:48 Patient Condition ORDERS 08/27/24 Transmitted 00:48 Allergies KARLENE 08/27/24 In Process 00:48 Ondansetron Hcl PHA 08/27/24 In Process (Zofran) 01:00 Morphine Sulfate PHA 08/27/24 In Process Injection 01:00 Enoxaparin Sodium PHA 08/27/24 In Process (Lovenox) 10:00 Oxygen By Nasal RT 08/27/24 Transmitted Cannula 00:48 Notify Of Changes KARLENE 08/27/24 In Process From Base 00:48 Acetaminophen Tablet PHA 08/27/24 In Process (Tylenol Tablet) 01:00 Apixaban (Eliquis) PHA 08/27/24 Pending 10:00 Carvedilol Tablet PHA 08/27/24 In Process (Coreg Tablet) 10:00 Levofloxacin Tablet PHA 08/27/24 In Process (Levaquin Tablet) 02:30 Levothyroxine Tablet PHA 08/27/24 In Process (Synthroid Tablet) 10:00 Gabapentin Capsule PHA 08/27/24 In Process (Neurontin Capsule) 06:00 Hydroxyzine Oral PHA 08/27/24 In Process (Vistaril Oral) 10:00 Methocarbamol PHA 08/27/24 In Process (Robaxin) 10:00 Furosemide Tablet PHA 08/27/24 In Process (Lasix Tablet) 06:00 Valsartan (Diovan) PHA 08/27/24 Pending 02:00 Valsartan (Diovan) PHA 08/27/24 Pending 10:00 Date of Service: Aug 27, 2024 Billing Provider: RAMON MANCILLA MD Common Visit Codes: 14614-PFEBMMT INP/OBS CARE (HIGH) Secondary Visit Codes: 18133-[id number] CARE PLAN 30 MINUTES ARTEMIO PEDRO RESIDENT Aug 27, 2024 02:54 RAMON MANCILLA MD Aug 27, 2024 11:39
--- NOTE | 2024-08-27 03:32 | ECG ---
[facility] Test Date: 2024-08-26 Test Time: 22:13:12 Pat Name: DAVEY CARTER Department: ER Room: 0214T Gender: F Cart Attendant: ER : 1955 Requested By: CAROLYN DEL TORO Order Number: [id number] Reading MD: César Barba Measurements Intervals [place] Rate: 80 P: 50 [place]: 167 QRS: 49 QRSD: 129 T: 74 QT: 412 QTc: 476 Interpretive Statements Sinus rhythm Right atrial enlargement Nonspecific intraventricular conduction delay Minimal ST elevation, lateral leads Artifact in lead(s) I,II,aVR,aVL,aVF and baseline wander in lead(s) I,III,aVL Electronically Signed On 08-27-2024 19:22:52 PDT by César Barba Please click the below link to view image of tracing.
[2024-08-27] MEDS: ACETAMINOPHEN 325 MG TAB PO PRN (04:51)
[2024-08-27] MEDS: amLODIPine BESYLATE 5 MG TAB PO ONE (04:51)
[2024-08-27] MEDS: GABAPENTIN 300 MG CAP PO SCH (06:32)
[2024-08-27] MEDS: FUROSEMIDE 40 MG TAB PO SCH (06:33)
[2024-08-27] MEDS ORDERED: ALLO300T2 PO (06:45)
[2024-08-27] MEDS ORDERED: LOSA-533 PO (06:46)
[2024-08-27] MEDS: REMDESIVIR 200mg in NS 210mL LOADING DOSE ADULT IV ONE (08:52)
[2024-08-27] MEDS ORDERED: ENOXAPARIN SOD 40 MG/0.4 ML SYRINGE SC SCH (10:00)
[2024-08-27] MEDS ORDERED: VALSARTAN 80 MG TAB PO SCH (10:00)
[2024-08-27] MEDS ORDERED: APIXABAN 5 MG TAB PO SCH (10:00)
[2024-08-27] MEDS: hydrOXYzine HCL 10 MG TAB PO SCH (10:02)
[2024-08-27] MEDS: amLODIPine BESYLATE 5 MG TAB PO SCH (10:06)
[2024-08-27] MEDS: LEVOTHYROXINE SODIUM 25 MCG TAB PO SCH (10:06)
[2024-08-27] MEDS: CARVEDILOL 3.125 MG TAB PO SCH (10:07)
[2024-08-27] MEDS: FUROSEMIDE 40 MG/4 ML VIAL IV SCH (10:08)
[2024-08-27] MEDS: DexAMETHasone SOD PHOS 10MG/1ML VIAL INJ IV ONE (10:08)
[2024-08-27] MEDS: METHOCARBAMOL 500 MG TAB PO SCH (10:08)
[2024-08-27] MEDS: ENOXAPARIN SOD 100 MG/1 ML SYRINGE SC SCH (10:34)
[2024-08-27] MEDS: IPRATROPIUM BROM 0.5 MG/2.5ML INH SOL NEB SCH (11:16)
[2024-08-27] MEDS: ALBUTEROL SULF 2.5 MG/0.5ML(0.5%) NEB SOLN NEB SCH (11:16)
[2024-08-27 12:28] LABS: Base Excess 3.2 mmol/L (-2.0-3.0)
[2024-08-27 13:44] LABS: Basophils # (auto) 0.1 10 ^3/uL (0-0.2); Basophils % (auto) 0.7 % (0.0-2.0); Eosinophils # (auto) 0 10 ^3/uL (0-0.8); Eosinophils % (auto) 0.1 % (0.0-7.0); Hematocrit 37.8 % (36.0-46.0); Hemoglobin 12.8 g/dL (12.2-16.2); Lymphocytes # (auto) 0.9 10 ^3/uL (0.4-5.4); Lymphocytes % (auto) 11.3 % (10.0-50.0); Mean Corpuscular Hemoglobin 31.8 pg (28.0-32.0); Mean Corpuscular Hgb Conc. 33.9 g/dL (32.0-36.0); Mean Corpuscular Volume 93.8 fL (80.0-100.0); Monocytes # (auto) 0.6 10 ^3/uL (0-1.3); Monocytes % (auto) 7.5 % (0.0-12.0); Neutrophils # (auto) 6.1 10 ^3/uL (1.6-8.6); Neutrophils % (auto) 80.4 % (37.0-80.0); Platelet Count (auto) 208 10^3/uL (140-450); Red Blood Cells 4.04 10^6/uL (4.0-5.20); Red Cell Distribution Width 14.6 % (11.8-14.3); White Blood Cell 7.5 10^3/uL (4.4-10.8)
--- NOTE | 2024-08-27 13:49 | DVHPNRES ---
Progress Note Date Seen: Aug 27, 2024 Resident Creating Document: DARY JIMENEZ RESIDENT Medical Necessity Reason Pt with a Central, PICC or Fol: No Subjective Review of Systems This is a 69 year old female presented to the ED via EMS due to shortness of breath for 2 days. PMHx: Anemia, CHF, CKF, Gout, High Lipids, HTN, Thyroid, DVT PShx: Cholecystectomy FHX: Reviewed,noncontributory to illness SHX: Lives with boyfriend, Marijuana, Methamphetamine Patient has been having productive cough and shortness breath with the past 2 days that progressively worsened. She also noticed abdominal pain, nausea, and myalgia. She however denied fever,dizziness, vomiting, or changes in bowel movement. At scene when EMS arrived, patient was saturating at 86% on room air. She was given breathing treatments on route to the ED that improved her O2 saturation. In the ED, patient remained breathless and also tested positive for COVID. On my initial assessment, patient continued to complain about significant shortness of breath, she was somnolent, A&O x2, GCS was 14. She denied having chest pain, dizziness, lightheadedness, abdominal pain, nausea, vomiting. Patient continues to be on nasal cannula at 5 L, however she desaturated and she was placed on Oxymizer. An ABG demonstrated respiratory alkalosis. Objective vital signs Vital Sign Date Time Temp Pulse Resp B/P (MAP) Pulse Ox O2 Delivery O2 Flow Rate FiO2 08/27/24 12:52 98.8 69 17 94/63 (73) 89 98.8 08/27/24 11:16 Nasal Cannula 4.0 08/27/24 11:16 36 Total Intake and Output 08/26/24 08/26/24 08/27/24 15:00 23:00 07:00 Intake Total 0 ml Balance 0 ml medications Current Medications Medications Dose Ordered Sig/Eitan Route Start Time Stop Time Status Last Admin Dose Admin Acetaminophen 650 mg Q6HP PRN PO 08/27/24 01:00 08/27/24 10:04 325 MG Ondansetron HCl 4 mg Q4HP PRN IV 08/27/24 01:00 Morphine Sulfate 2 mg Q4HPRN PRN IV 08/27/24 01:00 Acetaminophen 325 mg Q8HP PRN PO 08/27/24 01:00 Carvedilol 3.125 mg BID PO 08/27/24 10:00 08/27/24 10:07 3.125 MG Levothyroxine Sodium 25 mcg DAILY PO 08/27/24 10:00 08/27/24 10:06 25 MCG Gabapentin 600 mg TID PO 08/27/24 06:00 08/27/24 06:32 600 MG Methocarbamol 750 mg BID PO 08/27/24 10:00 08/27/24 10:08 750 MG Remdesivir 0 ml @ 0 mls/hr PER PHARMACY IV 08/27/24 02:45 08/29/24 02:46 Amlodipine Besylate 10 mg DAILY PO 08/27/24 10:00 08/27/24 10:06 10 MG Remdesivir 100 mg/ Sodium Chloride 250 ml @ 250 mls/hr DAILY@1500 IV 08/28/24 15:00 08/29/24 15:59 Dexamethasone Sodium Phosphate 6 mg DAILY IV 08/28/24 10:00 Albuterol 2.5 mg Q4HWA NEB 08/27/24 10:00 08/27/24 11:16 2.5 MG Ipratropium [place] 0.5 mg Q4HWA NEB 08/27/24 10:00 08/27/24 11:16 0.5 MG Furosemide 40 mg BIDD IV 08/27/24 10:00 08/27/24 10:08 40 MG Enoxaparin Sodium 80 mg Q12HR SC 08/27/24 10:00 08/27/24 10:34 80 MG Levofloxacin/ Dextrose 100 ml @ 100 mls/hr DAILY IV 08/28/24 10:00 Hydroxyzine Pamoate 25 mg DAILY PO 08/28/24 10:00 Examination General Appearance: Alert, Oriented X3, Cooperative, moderate distress due to sob HEENT: Atraumatic, PERRLA, EOMI, Mucous membrane moist/pink Respiratory: diminished, Rales bilaterally. Cardiovascular: Regular rate, Normal S1, Normal S2, No murmurs, no chest wall tenderness Abdominal: distention, tenderness in the epigastrium and right upper quadrant, bowel sounds present, no scars noted Extremities: No clubbing, No cyanosis, No edema, Normal pulses, No tenderness/swelling Skin: No rashes, No breakdown, No significant lesion Neuro: limited mobility, uses wheelchair, Normal speech, Sensation intact, Cranial nerves 3-12 NL, laboratory and microbiology Laboratory Tests 08/26/24 22:50 Test 08/26/24 22:50 Range/Units Serum Glucose 101 74-106 mg/dL Labs and/or images reviewed: Labs reviewed by me, Image(s) reviewed by me Problem List/Assessment/Plan Problem List/Assessment/Plan #Acute on chronic diastolic CHF BNP: 1382 Lasix 40 mg IV b.i.d. Continue Carvedilol Last echocardiogram in 06/07 demonstrated an ejection fraction of 55%, RVSP 46 #Acute hypoxic respiratory failure Placed on Oxymizer, maintain an oxygen saturation more than 92% #COVID pneumonia #Possible pneumonia Gram-positive versus Gram-negative On Oxymizer Levaquin IV Remdesivir IV Dexamethasone 6 mg IV q.d. DuoNebs #Hypertensive urgency, improving Continue home medication Started Losartan 80 mg daily #Chronic DVT Continue therapeutic Lovenox #Hypothyroidism Levothyroxine #Medication noncompliant #History of methamphetamine abuse Counseled patient the importance of medication compliance. #History of gout #Dyslipidemia Goal of care discussed more than 30 minutes, full code Case and plan discussed with Dr. Mancilla critical care time 45 mins Plan discussed with: Patient, Other (RN) My Orders My Orders Orders - DARY JIMENEZ RESIDENT Procedure Category Date Status Time Respiratory Culture SHIRIN 08/27/24 Logged W/ Gs 08:00 Blood Culture SHIRIN 08/27/24 Logged 08:00 Lactic Acid W/ Reflex LAB 08/27/24 Logged Order 08:00 Dexamethasone PHA 08/28/24 In Process Injection (Decadron 10:00 Albuterol Medneb PHA 08/27/24 In Process (Ventolin Medneb) 10:00 Ipratropium Medneb PHA 08/27/24 In Process (Atrovent Medneb) 10:00 Furosemide Injection PHA 08/27/24 In Process (Lasix Injection) 10:00 Enoxaparin Sodium PHA 08/27/24 In Process (Lovenox) 10:00 Levofloxacin 500mg PHA 08/28/24 In Process (Levaquin 500mg/ 100m 10:00 Strict I & O KARLENE 08/27/24 In Process 08:10 Insert/Manage Urinary KARLENE 08/27/24 In Process Catheter 08:56 Cardiac DIET 08/27/24 Transmitted Diet-2gna,Lofat,Lochol Lunch Abg W/ Co-Ox RT 08/27/24 Logged 12:04 Admit ADMIT 08/27/24 Transmitted 13:07 Date of Service: Aug 27, 2024 Billing Provider: RAMON MANCILLA MD Common Visit Codes: [id number] CARE 30-74 MIN DARY JIMENEZ RESIDENT Aug 27, 2024 13:49 RMAON MANCILLA MD Aug 28, 2024 11:18
[2024-08-27 13:54] LABS: Anion Gap 13 (5-15); Calcium 9.2 mg/dL (8.7-10.4); Carbon Dioxide 26 mmol/L (20-31)
[2024-08-27 13:55] LABS: Chloride 92 mmol/L (98-107); Potassium 3.2 mmol/L (3.5-5.1); Sodium 131 mmol/L (136-145)
[2024-08-27 13:58] LABS: INR 1.23 (0.9-1.15); Partial Thromboplastin Time 42.4 SEC (24.5-34.5); Prothrombin Time 12.8 sec (9.3-11.8)
[2024-08-27 13:59] LABS: BUN/Creatinine Ratio 12.4 (10.0-20.0); Blood Urea Nitrogen 15 mg/dL (9-23)
[2024-08-27 14:01] LABS: Glucose 115 mg/dL (74-106); Magnesium 1.3 mg/dL (1.6-2.6); Phosphorus 4.4 mg/dL (2.4-5.1)
[2024-08-27] MEDS: POTASSIUM CHL 20 Meq TABLET PO ONE (16:31)
[2024-08-27] MEDS: MAGNESIUM SULFATE 1GM/100ML 100 ML IV SCH (16:32)
[2024-08-28] VITALS (11 sets, daily range): BP systolic 95–132; BP diastolic 53–74; PULSE 60–77; RESP 15–19; TEMP 97.5–98.6; O2SAT 90–98
[2024-08-28] MEDS: ALBUTEROL SULF HFA 90MCG INH 200DOSE IN SCH (06:00)
[2024-08-28 07:30] LABS: Basophils # (auto) 0 10 ^3/uL (0-0.2); Basophils % (auto) 0.2 % (0.0-2.0); Eosinophils # (auto) 0 10 ^3/uL (0-0.8); Eosinophils % (auto) 0.1 % (0.0-7.0); Hematocrit 38.3 % (36.0-46.0); Hemoglobin 13.4 g/dL (12.2-16.2); Lymphocytes # (auto) 1.1 10 ^3/uL (0.4-5.4); Lymphocytes % (auto) 17.1 % (10.0-50.0); Mean Corpuscular Hemoglobin 32.7 pg (28.0-32.0); Mean Corpuscular Hgb Conc. 35.1 g/dL (32.0-36.0); Mean Corpuscular Volume 93.3 fL (80.0-100.0); Monocytes # (auto) 0.7 10 ^3/uL (0-1.3); Monocytes % (auto) 10.8 % (0.0-12.0); Neutrophils # (auto) 4.8 10 ^3/uL (1.6-8.6); Neutrophils % (auto) 71.8 % (37.0-80.0); Nucleated Red Blood Cells % 0.1 %; Platelet Count (auto) 242 10^3/uL (140-450); Red Cell Distribution Width 14.2 % (11.8-14.3); White Blood Cell 6.7 10^3/uL (4.4-10.8)
[2024-08-28 07:52] LABS: Alanine Aminotransferase 10 U/L (7-40); Albumin 4.4 g/dL (3.2-4.8); Alkaline Phosphatase 60 U/L (46-116); Anion Gap 11 (5-15); Aspartate Aminotransferase 21 U/L (13-40); BUN/Creatinine Ratio 21.1 (10.0-20.0); Calcium 9.3 mg/dL (8.7-10.4); Carbon Dioxide 26 mmol/L (20-31); Magnesium 2.2 mg/dL (1.6-2.6); Potassium 3.6 mmol/L (3.5-5.1); Total Protein 6.9 g/dL (5.7-8.2)
[2024-08-28 07:53] LABS: Bilirubin, Total 0.3 mg/dL (0.2-1.0); Blood Urea Nitrogen 28 mg/dL (9-23); Chloride 97 mmol/L (98-107); Glucose 169 mg/dL (74-106); Sodium 134 mmol/L (136-145)
--- NOTE | 2024-08-28 08:25 | DVHPNRES ---
Progress Note Date Seen: Aug 28, 2024 Resident Creating Document: DARY JIMENEZ RESIDENT Medical Necessity Reason Pt with a Central, PICC or Fol: No Subjective Review of Systems patient continued to complain about shortness of breath, A&O x3, GCS was 14. She denied having chest pain, dizziness, lightheadedness, abdominal pain, nausea, vomiting. She continues to be on simple mask. Objective vital signs Vital Sign Date Time Temp Pulse Resp B/P (MAP) Pulse Ox O2 Delivery O2 Flow Rate FiO2 08/28/24 06:13 121/70 08/28/24 05:17 98.1 72 18 98 98.1 08/27/24 22:09 Mask 10.0 08/27/24 22:09 99 Total Intake and Output 08/27/24 08/27/24 08/28/24 14:59 22:59 06:59 Intake Total 250 ml 540 ml 200 ml Output Total 550 ml 500 ml Balance 250 ml -10 ml -300 ml medications Current Medications Medications Dose Ordered Sig/Eitan Route Start Time Stop Time Status Last Admin Dose Admin Acetaminophen 650 mg Q6HP PRN PO 08/27/24 01:00 08/27/24 10:04 325 MG Ondansetron HCl 4 mg Q4HP PRN IV 08/27/24 01:00 Morphine Sulfate 2 mg Q4HPRN PRN IV 08/27/24 01:00 Acetaminophen 325 mg Q8HP PRN PO 08/27/24 01:00 Carvedilol 3.125 mg BID PO 08/27/24 10:00 08/27/24 21:48 3.125 MG Levothyroxine Sodium 25 mcg DAILY PO 08/27/24 10:00 08/27/24 10:06 25 MCG Gabapentin 600 mg TID PO 08/27/24 06:00 08/28/24 06:13 600 MG Methocarbamol 750 mg BID PO 08/27/24 10:00 08/27/24 21:49 750 MG Remdesivir 0 ml @ 0 mls/hr PER PHARMACY IV 08/27/24 02:45 08/29/24 02:46 Amlodipine Besylate 10 mg DAILY PO 08/27/24 10:00 08/27/24 10:06 10 MG Remdesivir 100 mg/ Sodium Chloride 250 ml @ 250 mls/hr DAILY@1500 IV 08/28/24 15:00 08/29/24 15:59 Dexamethasone Sodium Phosphate 6 mg DAILY IV 08/28/24 10:00 Furosemide 40 mg BIDD IV 08/27/24 10:00 08/28/24 06:13 40 MG Enoxaparin Sodium 80 mg Q12HR SC 08/27/24 10:00 08/27/24 21:49 80 MG Levofloxacin/ Dextrose 100 ml @ 100 mls/hr DAILY IV 08/28/24 10:00 Hydroxyzine Pamoate 25 mg DAILY PO 08/28/24 10:00 Albuterol 90 mcg TID IN 08/28/24 06:00 Examination General Appearance: Alert, Oriented X3, Cooperative, moderate distress due to sob HEENT: Atraumatic, PERRLA, EOMI, Mucous membrane moist/pink Respiratory: diminished, Rales bilaterally. Cardiovascular: Regular rate, Normal S1, Normal S2, No murmurs, no chest wall tenderness Abdominal: distention, tenderness in the epigastrium and right upper quadrant, bowel sounds present, no scars noted Extremities: No clubbing, No cyanosis, No edema, Normal pulses, No tenderness/swelling Skin: No rashes, No breakdown, No significant lesion Neuro: limited mobility, uses wheelchair, Normal speech, Sensation intact, Cranial nerves 3-12 NL laboratory and microbiology Laboratory Tests 08/28/24 07:11 Test 08/28/24 07:11 Range/Units Serum Glucose 169 H 74-106 mg/dL Labs and/or images reviewed: Labs reviewed by me, Image(s) reviewed by me Problem List/Assessment/Plan Problem List/Assessment/Plan #Acute on chronic diastolic CHF BNP: 1382 Lasix 40 mg IV b.i.d. Continue Carvedilol Last echocardiogram in 06/07 demonstrated an ejection fraction of 55%, RVSP 46 #Acute hypoxic respiratory failure Placed on nasal cannula, maintain an oxygen saturation more than 92% #COVID pneumonia #Possible pneumonia Gram-positive versus Gram-negative On Oxymizer Levaquin IV Remdesivir IV Dexamethasone 6 mg IV q.d. DuoNebs Pending cultures #Hypertensive urgency, improving Continue home medication Continue amlodipine 10 mg p.o. q.d. #Chronic DVT Continue therapeutic Lovenox #Hypothyroidism Levothyroxine #Medication noncompliant #History of methamphetamine abuse Counseled patient the importance of medication compliance. #History of gout #Dyslipidemia Monitor Goal of care discussed more than 30 minutes, full code Case and plan discussed with Dr. Mancilla Plan discussed with: Patient, Other (RN) My Orders My Orders Orders - DARY JIMENEZ RESIDENT Procedure Category Date Status Time Insert/Manage Urinary KARLENE 08/27/24 In Process Catheter 08:56 Cardiac DIET 08/27/24 Transmitted Diet-2gna,Lofat,Lochol Lunch Abg W/ Co-Ox RT 08/27/24 Logged 12:04 Admit ADMIT 08/27/24 Transmitted 13:07 Albuterol Inhaler PHA 08/28/24 In Process (Ventolin Hfa) 06:00 Potassium Er Tablet PHA 08/28/24 Verified (Klor-Con Tablet) 08:30 Date of Service: Aug 28, 2024 Billing Provider: RAMON MANCILLA MD Common Visit Codes: [id number] INP/OBS CARE(HIGH) DARY JIMENEZ RESIDENT Aug 28, 2024 08:25 RAMON MANCILLA MD Aug 28, 2024 14:50
[2024-08-28] MEDS: levoFLOXacin 500MG 100 ML IV SCH (10:00)
[2024-08-28] MEDS: DexAMETHasone SOD PHOS 10MG/1ML VIAL INJ IV SCH (10:00)
[2024-08-28] MEDS: POTASSIUM CHL 20 Meq TABLET PO ONE (11:38)
[2024-08-28] MEDS: Glucerna Carbsteady SHAKE Vanilla 8oz PO SCH (12:24)
[2024-08-28] MEDS: hydrOXYzine 25 MG TAB or CAP PO SCH (12:24)
[2024-08-28] MEDS: REMDESIVIR 100mg in NS 230mL (3 DAY REGIMEN) IV SCH (15:18)
[2024-08-28 15:42] LABS: Urine Bacteria None Seen /hpf (None Seen)
[2024-08-28 15:48] LABS: Urine Blood 3+ /uL (Negative); Urine Clarity Clear (Clear); Urine Color Light-Yellow (Yellow); Urine Mucus FEW (None Seen); Urine Protein, UAD Negative (Negative); Urine Specific Gravity 1.013 (1.001-1.035); Urine Squamous Epithelial Cell FEW /hpf (<5); Urine Urobilinogen Normal (Negative); Urine WBC 12 /HPF (0-5)
[2024-08-28 16:11] LABS: Amphetamine Screen, Urine Neg (NEGATIVE); Opiate Scree,Urine Neg (NEGATIVE)
[2024-08-28 16:12] LABS: Phencyclidine Screen, Urine Neg (NEGATIVE)
[2024-08-28 16:13] LABS: Barbiturate Scree,Urine Neg (NEGATIVE); Benzodiazephine Screen, Urine Neg (NEGATIVE); Cannabinoid Screen, Urine Neg (NEGATIVE); Cocaine Screen, Urine Neg (NEGATIVE)
[2024-08-29] VITALS (11 sets, daily range): BP systolic 106–130; BP diastolic 58–79; PULSE 53–88; RESP 14–18; TEMP 97.1–98.1; O2SAT 90–96
--- NOTE | 2024-08-29 06:36 | DVH ---
CHEST RADIOGRAPH Indication: sob Technique: Single frontal view of the chest was obtained Comparison: XY CHEST XRAY 1 VIEW on DOS: 08/26/24, XY CHEST PORTABLE on DOS: 02/07/24 FINDINGS: Lines and Tubes: None Lungs: Prominent interstitial markings. No focal consolidation. Pleura: No effusion. No pneumothorax. Cardiomediastinal contours: Unremarkable Bones: No acute osseous abnormality. IMPRESSION: 1. Prominent interstitial markings. No significant interval change.
[2024-08-29 10:24] LABS: Basophils # (auto) 0.1 10 ^3/uL (0-0.2); Basophils % (auto) 0.7 % (0.0-2.0); Eosinophils # (auto) 0 10 ^3/uL (0-0.8); Eosinophils % (auto) 0.6 % (0.0-7.0); Hematocrit 43.5 % (36.0-46.0); Hemoglobin 14.4 g/dL (12.2-16.2); Lymphocytes # (auto) 2.6 10 ^3/uL (0.4-5.4); Lymphocytes % (auto) 36.6 % (10.0-50.0); Mean Corpuscular Hemoglobin 31.4 pg (28.0-32.0); Mean Corpuscular Hgb Conc. 33.2 g/dL (32.0-36.0); Mean Corpuscular Volume 94.7 fL (80.0-100.0); Monocytes # (auto) 0.7 10 ^3/uL (0-1.3); Monocytes % (auto) 9.5 % (0.0-12.0); Neutrophils # (auto) 3.7 10 ^3/uL (1.6-8.6); Neutrophils % (auto) 52.6 % (37.0-80.0); Nucleated Red Blood Cells % 0.2 %; Platelet Count (auto) 252 10^3/uL (140-450); Red Blood Cells 4.59 10^6/uL (4.0-5.20); Red Cell Distribution Width 14.4 % (11.8-14.3); White Blood Cell 7.1 10^3/uL (4.4-10.8)
[2024-08-29 10:55] LABS: Alkaline Phosphatase 60 U/L (46-116); Anion Gap 11 (5-15); BUN/Creatinine Ratio 30.4 (10.0-20.0); Calcium 9.5 mg/dL (8.7-10.4); Carbon Dioxide 26 mmol/L (20-31); Chloride 101 mmol/L (98-107); Potassium 3.7 mmol/L (3.5-5.1); Sodium 138 mmol/L (136-145); Total Protein 6.9 g/dL (5.7-8.2)
[2024-08-29 10:56] LABS: Albumin 4.3 g/dL (3.2-4.8); Aspartate Aminotransferase 16 U/L (13-40)
[2024-08-29 10:58] LABS: Base Excess 2.4 mmol/L (-2.0-3.0)
[2024-08-29 11:06] LABS: Alanine Aminotransferase < 9 U/L (7-40); Bilirubin, Total 0.3 mg/dL (0.2-1.0); Blood Urea Nitrogen 41 mg/dL (9-23); Glucose 122 mg/dL (74-106)
--- NOTE | 2024-08-29 17:29 | DVHPNRES ---
Progress Note Date Seen: Aug 29, 2024 Resident Creating Document: DARY JIMENEZ RESIDENT Medical Necessity Reason Pt with a Central, PICC or Fol: No Subjective Review of Systems Patient stated feeling better, A&O x4. She denied having chest pain, dizziness, lightheadedness, abdominal pain, nausea, vomiting. Objective vital signs Vital Sign Date Time Temp Pulse Resp B/P (MAP) Pulse Ox O2 Delivery O2 Flow Rate FiO2 08/29/24 14:32 93 Room Air* 0 21 08/29/24 14:32 70 16 08/29/24 13:00 98.0 106/59 (75) 98.0 Total Intake and Output 08/28/24 08/28/24 08/29/24 15:00 23:00 07:00 Intake Total 240 ml 847 ml 100 ml Output Total 1400 ml Balance 240 ml 847 ml -1300 ml medications Current Medications Medications Dose Ordered Sig/Eitan Route Start Time Stop Time Status Last Admin Dose Admin Acetaminophen 650 mg Q6HP PRN PO 08/27/24 01:00 08/27/24 10:04 325 MG Ondansetron HCl 4 mg Q4HP PRN IV 08/27/24 01:00 Morphine Sulfate 2 mg Q4HPRN PRN IV 08/27/24 01:00 Acetaminophen 325 mg Q8HP PRN PO 08/27/24 01:00 Carvedilol 3.125 mg BID PO 08/27/24 10:00 08/29/24 10:26 3.125 MG Levothyroxine Sodium 25 mcg DAILY PO 08/27/24 10:00 08/29/24 10:23 25 MCG Gabapentin 600 mg TID PO 08/27/24 06:00 08/29/24 14:06 600 MG Methocarbamol 750 mg BID PO 08/27/24 10:00 08/29/24 10:22 750 MG Amlodipine Besylate 10 mg DAILY PO 08/27/24 10:00 08/29/24 10:25 10 MG Dexamethasone Sodium Phosphate 6 mg DAILY IV 08/28/24 10:00 08/29/24 10:12 6 MG Furosemide 40 mg BIDD IV 08/27/24 10:00 08/29/24 05:29 40 MG Enoxaparin Sodium 80 mg Q12HR SC 08/27/24 10:00 08/29/24 10:19 80 MG Levofloxacin/ Dextrose 100 ml @ 100 mls/hr DAILY IV 08/28/24 10:00 08/29/24 10:12 100 MLS/HR Hydroxyzine Pamoate 25 mg DAILY PO 08/28/24 10:00 08/29/24 10:23 25 MG Albuterol 90 mcg TID IN 08/28/24 06:00 08/29/24 14:32 90 MCG Enteral Nutritional Formula 240 ml TIDWM PO 08/28/24 12:00 08/29/24 12:35 240 ML Examination General Appearance: Alert, Oriented X3, Cooperative, moderate distress due to sob HEENT: Atraumatic, PERRLA, EOMI, Mucous membrane moist/pink Respiratory: diminished, Rales bilaterally. Cardiovascular: Regular rate, Normal S1, Normal S2, No murmurs, no chest wall tenderness Abdominal: distention, tenderness in the epigastrium and right upper quadrant, bowel sounds present, no scars noted Extremities: No clubbing, No cyanosis, No edema, Normal pulses, No tenderness/swelling Skin: No rashes, No breakdown, No significant lesion Neuro: limited mobility, uses wheelchair, Normal speech, Sensation intact, Cranial nerves 3-12 NL laboratory and microbiology laboratory and microbiology Laboratory Tests 08/29/24 09:40 Test 08/29/24 09:40 Range/Units Serum Glucose 122 H 74-106 mg/dL Microbiology Date/Time Source Procedure Growth Status 08/27/24 13:35 Blood Blood Culture - Preliminary NO GROWTH AFTER 48 HOURS OF INCUBATION. Resulted Labs and/or images reviewed: Labs reviewed by me, Image(s) reviewed by me Problem List/Assessment/Plan Problem List/Assessment/Plan #Acute on chronic diastolic CHF BNP: 1382 dc Lasix 40 mg IV b.i.d. Continue Carvedilol Last echocardiogram in 06/07 demonstrated an ejection fraction of 55%, RVSP 46 #Acute hypoxic respiratory failure placed on room air #COVID pneumonia #Possible pneumonia Gram-positive versus Gram-negative On Oxymizer Levaquin IV Remdesivir IV Dexamethasone 6 mg IV q.d. DuoNebs Pending cultures #Hypertensive urgency, improving Continue home medication Continue amlodipine 10 mg p.o. q.d. #Chronic DVT Continue therapeutic Lovenox #Hypothyroidism Levothyroxine #Medication noncompliant #History of methamphetamine abuse Counseled patient the importance of medication compliance. #History of gout #Dyslipidemia Monitor possible dc tomorrow Goal of care discussed more than 30 minutes, full code Case and plan discussed with Dr. Mancilla Plan discussed with: Patient, Other (RN) My Orders My Orders Orders - DARY JIMENEZ RESIDENT Procedure Category Date Status Time Abg W/ Co-Ox RT 08/29/24 Logged 07:46 Date of Service: Aug 29, 2024 Billing Provider: RAMON MANCILLA MD Common Visit Codes: [id number] INP/OBS CARE(HIGH) DARY JIMENEZ RESIDENT Aug 29, 2024 17:29 RAMON MANCILLA MD Aug 30, 2024 17:33
[2024-08-30] VITALS (8 sets, daily range): BP systolic 122–133; BP diastolic 62–77; PULSE 69–82; RESP 16–20; TEMP 97.8–98.5; O2SAT 90–96
[2024-08-30 06:31] LABS: Urine Bacteria FEW /hpf (None Seen); Urine Blood 3+ /uL (Negative); Urine Clarity Turbid (Clear); Urine Protein, UAD TRACE (Negative); Urine Specific Gravity 1.014 (1.001-1.035); Urine Squamous Epithelial Cell FEW /hpf (<5); Urine Urobilinogen Normal (Negative); Urine WBC 1 /HPF (0-5); Urine pH 5.5 (5.0-9.0)
[2024-08-30 06:33] LABS: Urine Color Yellow (Yellow)
[2024-08-30 06:42] LABS: Chloride 101 mmol/L (98-107); Potassium 3.8 mmol/L (3.5-5.1); Sodium 137 mmol/L (136-145)
[2024-08-30 06:43] LABS: Anion Gap 9 (5-15); Calcium 9.9 mg/dL (8.7-10.4); Carbon Dioxide 27 mmol/L (20-31)
[2024-08-30 06:48] LABS: BUN/Creatinine Ratio 32.3 (10.0-20.0)
[2024-08-30 06:49] LABS: Magnesium 1.8 mg/dL (1.6-2.6)
[2024-08-30 06:50] LABS: Blood Urea Nitrogen 41 mg/dL (9-23); Glucose 145 mg/dL (74-106)
--- NOTE | 2024-08-30 07:40 | DVHDSRES ---
Discharge Summary Date of Admission Resident Creating Document: DARY JIMENEZ RESIDENT Aug 27, 2024 at 13:07 Date of Discharge: Aug 30, 2024 Admitting Diagnosis covid pneumonia Labs/Diagnostic Data: Laboratory Results Test 08/30/24 05:40 08/29/24 10:52 08/29/24 09:40 08/28/24 15:09 Urine Color Yellow (Yellow) Urine Clarity Turbid (Clear) Urine pH 5.5 (5.0-9.0) Urine Specific [place] 1.014 (1.001-1.035) Urine Protein Trace (Negative) Urine Ketones Negative (Negative) Urine Blood 3+ /uL (Negative) Urine Nitrite Negative (Negative) Urine Bilirubin Negative (Negative) Urine Urobilinogen Normal mg/dL (Negative) Urine Leukocyte Esterase Negative /uL (Negative) Urine RBC 146 /hpf (0 - 4) Urine Microscopic WBC 1 /HPF (0-5) Urine Squamous Epithelial Cells Few /hpf (<5) Urine Bacteria Few /hpf (None Seen) Urine Glucose Normal mg/dL (Normal) Sodium Level 137 mmol/L (136-145) Potassium Level 3.8 mmol/L (3.5-5.1) Chloride Level 101 mmol/L (98-107) Carbon Dioxide Level 27 mmol/L (20-31) Anion Gap 9 (5-15) Blood Urea Nitrogen 41 mg/dL (9-23) Creatinine 1.27 mg/dL (0.550-1.02) Glomerular Filtration Rate Calc 46 mL/min (>90) BUN/Creatinine Ratio 32.3 (10.0-20.0) Serum Glucose 145 mg/dL (74-106) Calcium Level 9.9 mg/dL (8.7-10.4) Magnesium Level 1.8 mg/dL (1.6-2.6) Blood Gas Specimen Type Arterial Blood Gas Sample Site Right brachial Blood Gas Patient Temperature 37.0 Arterial Blood Date Drawn [id number] Arterial Blood pH 7.470 (7.350-7.450) Arterial Blood Partial Pressure CO2 36.3 mmHg (32.0-45.0) Arterial Blood Partial Pressure O2 59.3 mmHg (83.0-108.0) Arterial Blood HCO3 25.8 mmol/L (21.0-28.0) Arterial Blood Oxygen Saturation 90.0 % (94.0-98.0) Arterial Blood Base Excess 2.4 mmol/L (-2.0-3.0) Arterial Blood Oxyhemoglobin 89.2 % (94.0-98.0) Arterial Blood Carboxyhemoglobin 0.6 % (0.5-1.5) Arterial Blood Methemoglobin 0.3 % (0.0-1.5) Nathan Test N/a Blood Gas Total Hemoglobin 13.80 g/dL (12.0-16.0) Blood Gas Modality Room air FiO2 % 21.0 White Blood Count 7.1 10^3/uL (4.4-10.8) Red Blood Count 4.59 10^6/uL (4.0-5.20) Hemoglobin 14.4 g/dL (12.2-16.2) Hematocrit 43.5 % (36.0-46.0) Mean Corpuscular Volume 94.7 fL (80.0-100.0) Mean Corpuscular Hemoglobin 31.4 pg (28.0-32.0) Mean Corpuscular Hemoglobin Concent 33.2 g/dL (32.0-36.0) Red Cell Distribution Width 14.4 % (11.8-14.3) Platelet Count 252 10^3/uL (140-450) Mean Platelet Volume 8.5 fL (6.9-10.8) Neutrophils (%) (Auto) 52.6 % (37.0-80.0) Lymphocytes (%) (Auto) 36.6 % (10.0-50.0) Monocytes (%) (Auto) 9.5 % (0.0-12.0) Eosinophils (%) (Auto) 0.6 % (0.0-7.0) Basophils (%) (Auto) 0.7 % (0.0-2.0) Neutrophils # (Auto) 3.7 10 ^3/uL (1.6-8.6) Lymphocytes # (Auto) 2.6 10 ^3/uL (0.4-5.4) Monocytes # (Auto) 0.7 10 ^3/uL (0-1.3) Eosinophils # (Auto) 0 10 ^3/uL (0-0.8) Basophils # (Auto) 0.1 10 ^3/uL (0-0.2) Nucleated Red Blood Cells 0.2 % Total Bilirubin 0.3 mg/dL (0.2-1.0) Aspartate Amino Transferase (AST) 16 U/L (13-40) Alanine Aminotransferase (ALT) < 9 U/L (7-40) Alkaline Phosphatase 60 U/L (46-116) B-Type Natriuretic Peptide 76.02 pg/mL (0-100) Total Protein 6.9 g/dL (5.7-8.2) Albumin 4.3 g/dL (3.2-4.8) Urine Mucus Few (None Seen) Urine Opiates Screen Neg (NEGATIVE) Urine Fentanyl Screen Neg (NEGATIVE) Urine Barbiturates Screen Neg (NEGATIVE) Urine Phencyclidine Screen Neg (NEGATIVE) Urine Amphetamines Screen Neg (NEGATIVE) Urine Benzodiazepines Screen Neg (NEGATIVE) Urine Cocaine Screen Neg (NEGATIVE) Urine Cannabinoids Screen Neg (NEGATIVE) Test 08/28/24 07:11 08/27/24 13:28 08/27/24 12:23 08/26/24 23:45 Lactic Acid Level 1.0 mmol/L (0.4-2.0) Prothrombin Time 12.8 sec (9.3-11.8) Prothrombin Time INR 1.23 (0.9-1.15) Activated Partial Thromboplast Time 42.4 SEC (24.5-34.5) Phosphorus Level 4.4 mg/dL (2.4-5.1) Vitamin B12 Level 367 pg/mL (211-911) Vitamin D 25-Hydroxy 32.9 ng/mL (30.0-100) Blood Gas Liter Flow 6.00 Troponin I High Sensitivity 18 ng/L (</=34) Thyroid Stimulating Hormone (TSH) 0.72 uIU/mL (0.55-4.78) Test 08/26/24 23:43 08/26/24 23:35 08/26/24 22:50 Specimen Drawn By Blood Gas Critical Value Read Back Yes Blood Gas Notified Whom carolyn Del Toro md Blood Gas Notified Time [id number] Blood Gas Notified By Influenza Type A Antigen Negative (Negative) Influenza Type B Antigen Negative (Negative) SARS-CoV-2 Antigen (Rapid) Positive (NEGATIVE) D-Dimer, Quantitative 0.45 mg/L FEU (0.0-0.49) Other Laboratory Tests 08/30/24 05:40 08/29/24 09:40 Brief Hx & Hospital Course: This is a 69 year old female presented to the ED via EMS due to shortness of breath for 2 days. PMHx: Anemia, CHF, CKF, Gout, High Lipids, HTN, Thyroid, DVT PShx: Cholecystectomy FHX: Reviewed,noncontributory to illness SHX: Lives with boyfriend, Marijuana, Methamphetamine Patient has been having productive cough and shortness breath with the past 2 days that progressively worsened. She also noticed abdominal pain, nausea, and myalgia. She however denied fever,dizziness, vomiting, or changes in bowel movement. At scene when EMS arrived, patient was saturating at 86% on room air. She was given breathing treatments on route to the ED that improved her O2 saturation. In the ED, patient remained breathless and also tested positive for COVID. On my initial assessment, patient continued to complain about significant shortness of breath, she was somnolent, A&O x2, GCS was 14. She denied having chest pain, dizziness, lightheadedness, abdominal pain, nausea, vomiting. Patient continues to be on nasal cannula at 5 L, however she desaturated and she was placed on Oxymizer. An ABG demonstrated respiratory alkalosis. Patient continued to be on oxygen, remdesivir was started as well as dexamethasone, patient was on DuoNebs, we will also were diuresing her with Lasix. She also received empiric antibiotic treatment with Levaquin. Patient has had significant clinical improvement throughout her hospitalization, we might have to take care of the oxygen. Cultures did not grow anything. Patient stated feeling much better than on admission, she denied any significant shortness of breath, chest pain, nausea, vomiting, abdominal pain, dizziness, lightheadedness. She was tolerating diet, ambulatory with assistance. Physical examination as below: General Appearance: Alert, Oriented X3, Cooperative, moderate distress due to sob HEENT: Atraumatic, PERRLA, EOMI, Mucous membrane moist/pink Respiratory: diminished, Rales bilaterally. Cardiovascular: Regular rate, Normal S1, Normal S2, No murmurs, no chest wall tenderness Abdominal: distention, tenderness in the epigastrium and right upper quadrant, bowel sounds present, no scars noted Extremities: No clubbing, No cyanosis, No edema, Normal pulses, No tenderness/swelling Skin: No rashes, No breakdown, No significant lesion Neuro: limited mobility, uses wheelchair, Normal speech, Sensation intact, Cranial nerves 3-12 NL Patient will be discharged home and continue home medications as prescribed. Patient will continue taking Levaquin for three more days, we will prescribe her albuterol p.r.n., continue Coreg, Lasix, potassium chloride, Jardiance, amlodipine. Patient will follow up with PCP within 1-2 weeks, she verbalized understanding and agree with the DC plan, we spent over 30 minute explained the plan. Case and plan discussed with Dr. Mancilla Operations or Procedures [place] [id number] Ph: [phone] DIAGNOSTIC IMAGING Diagnostic Imaging Report : [id number] Signed PATIENT: DAVEY CARTER ACCT: [id number] UNIT: [id number] : 1955 LOC: ER ROOM / BED: / AGE / SEX: 69 / F ADM STATUS: REG ER SERVICE 38 ORDERING PHYSICIAN: CAROLYN DEL TORO MD PROCEDURE(s): CXR1 - CHEST XRAY 1 VIEW REASON: Shortness of breath ORDER NUMBER(s): [id number], ACCESSION NUMBER(s): [id number] CHEST RADIOGRAPH Indication: Shortness of breath Technique: Single frontal view of the chest was obtained Comparison: XY CHEST PORTABLE on DOS: 02/07/24 Findings/impression: Prominent interstitial markings. No focal consolidation or pneumothorax. No pleural effusions ATED BY: NANDO SHANKS DO DICTATED DATE/TIME: 08/26/242306 SIGNED BY: NANDO SHANKS DO SIGNED DATE/TIME: 08/26/242306 CC: [place] [id number] Ph: [phone] DIAGNOSTIC IMAGING Diagnostic Imaging Report : [id number] Signed PATIENT: DAVEY CARTER ACCT: [id number] UNIT: [id number] : 1955 LOC: ER ROOM / BED: / AGE / SEX: 69 / F ADM STATUS: REG ER SERVICE 0000 ORDERING PHYSICIAN: CAROLYN DEL TORO MD PROCEDURE(s): BLDVT - BiLat Lower DVT REASON: Rule out DVT ORDER NUMBER(s): [id number], ACCESSION NUMBER(s): [id number] Bilateral lower extremity venous duplex Clinical History: Rule out DVT Comparison: LT LOWER DVT on DOS: 09/29/20 Technique: Duplex Doppler evaluation of the deep venous systems of both lower extremities from the common femoral veins to the popliteal veins including color Doppler and spectral/pulsed waveform analysis was performed. Findings: RIGHT SIDE: The common femoral vein demonstrates appropriate compressibility and waveform variability. There is compressibility/patency of the great saphenous vein at the proximal thigh. The femoral vein demonstrates appropriate compressibility and waveform variability. The deep femoral vein demonstrates appropriate compressibility and waveform variability. The popliteal vein demonstrates appropriate compressibility and waveform variability. There is normal compressibility at the tibioperoneal trunk. LEFT SIDE: Nonocclusive DVT seen in the left common femoral vein and superficial femoral vein proximally . Bilateral complex appearing Ferraro's cyst measuring up to 6.6 cm. Impression: Nonocclusive DVT in the left common femoral vein and superficial femoral vein proximally. Instructor [employer]orating has relayed critical findings to the ordering provider. ATED BY: NANDO SHANKS DO DICTATED DATE/TIME: 08/27/2446 SIGNED BY: NANDO SHANKS DO SIGNED DATE/TIME: 08/27/2446 CC: [place] [id number] Ph: [phone] DIAGNOSTIC IMAGING Diagnostic Imaging Report : [id number] Signed PATIENT: DAVEY CARTER ACCT: [id number] UNIT: [id number] : 1955 LOC: [facility]GE / [facility]EX: 69 / F ADM STATUS: ADM IN SERVICE 9 ORDERING PHYSICIAN: DARY JIMENEZ RESIDENT PROCEDURE(s): CXRP - CHEST PORTABLE REASON: sob ORDER NUMBER(s): [id number], ACCESSION NUMBER(s): [id number] CHEST RADIOGRAPH Indication: sob Technique: Single frontal view of the chest was obtained Comparison: XY CHEST XRAY 1 VIEW on DOS: 3/14/25, XY CHEST PORTABLE on DOS: 02/07/24 FINDINGS: Lines and Tubes: None Lungs: Prominent interstitial markings. No focal consolidation. Pleura: No effusion. No pneumothorax. Cardiomediastinal contours: Unremarkable Bones: No acute osseous abnormality. IMPRESSION: 1. Prominent interstitial markings. No significant interval change. ATED BY: ELEONORA CARTER MD DICTATED DATE/TIME: 08/29/24633 SIGNED BY: ELEONORA CARTER MD SIGNED DATE/TIME: 08/29/24633 CC: Condition at Discharge: Guarded Final Diagnosis/Problems List #Acute on chronic diastolic CHF #Acute hypoxic respiratory failure #COVID pneumonia #Possible pneumonia Gram-positive versus Gram-negative #Hypertensive urgency, improving #Chronic DVT #Hypothyroidism #Medication noncompliant #History of methamphetamine abuse #History of gout #Dyslipidemia Discharge Disposition: Home Discharge Statement: "Patient was advised to return to the ER or call 911 if any headaches, dizziness, shortness of breath, chest pain, abdominal pain, bleeding, fevers, or worsening of medical condition. Patient was counseled about treatment plan, medications, possible side effects, patientverbalized understanding. All questions were answered to the best of my ability. This discharge took greater then 30 minutes in planning, reviewing documentation, counseling the patient, and discussing with other team members." ASSESSMENT ASSESSMENT Assessment Date of Service: Aug 30, 2024 Billing Provider: RAMON MANCILLA MD Common Visit Codes: 90048-ZQT/OBS DISCH DAY >30min DARY JIMENEZ RESIDENT Aug 30, 2024 07:40 RAMON MANCILLA MD Aug 30, 2024 17:51
[2024-08-30] MEDS ORDERED: ALBUAER3 IN (08:50)
[2024-08-30] MEDS ORDERED: EMPA1TAB PO (08:50)
[2024-08-30] MEDS ORDERED: AML5T PO (08:50)
[2024-08-30] MEDS ORDERED: LEVO500T91 PO (08:50)
[2024-08-30] MEDS ORDERED: POTA-36 PO (08:50)
[2024-08-30] MEDS ORDERED: FURO1TAB33 PO (08:50)
== END 2024-08-30 11:43 | disposition home or self-care (01) | DRG 177 ==
LOC: EDBD 22:11 → ER 22:11 → OVERFLOW 08-27 00:48 → CENTRAL 08-27 04:20 → TELE-CENTR 08-27 04:21 → OBSVTOIN 08-27 13:07
PROVIDERS: ADMIT Internal Medicine; ATTEND Internal Medicine
PROC: XW033E5 Introduction of Remdesivir Anti-infective into Peripheral Vein, Percutaneous Approach, New Technology Group 5 (ICD-10-PCS; principal; 2024-08-27)
DX: U07.1 COVID-19 (principal); I50.33 Acute on chronic diastolic (congestive) heart failure; J12.82 Pneumonia due to coronavirus disease 2019; J96.01 Acute respiratory failure with hypoxia; J15.9 Unspecified bacterial pneumonia; E87.1 Hypo-osmolality and hyponatremia; I13.0 Hypertensive heart and chronic kidney disease with heart failure and stage 1 through stage 4 chronic kidney disease, or unspecified chronic kidney disease; I82.5Z2 Chronic embolism and thrombosis of unspecified deep veins of left distal lower extremity; Z20.822 Contact with and (suspected) exposure to COVID-19; J15.69 Pneumonia due to other Gram-negative bacteria; I16.0 Hypertensive urgency; E03.9 Hypothyroidism, unspecified; E78.5 Hyperlipidemia, unspecified; F15.10 Other stimulant abuse, uncomplicated; N18.9 Chronic kidney disease, unspecified; Z91.148 Patient's other noncompliance with medication regimen for other reason; Z88.0 Allergy status to penicillin; Z79.899 Other long term (current) drug therapy; Z79.01 Long term (current) use of anticoagulants; Z90.49 Acquired absence of other specified parts of digestive tract; Z88.8 Allergy status to other drugs, medicaments and biological substances; Z88.2 Allergy status to sulfonamides
CPT/HCPCS: 36415; 36600; 71045; 80048; 80053; 80307; 81001; 82306; 82607; 82805; 83605; 83735; 83880; 84100; 84443; 84484; 85025; 85379; 85610; 85730; 87040; 87426; 87804; 93005; 93970; 94640; 96365; 96375; 99291; G0378; J1100; J1956

== ENCOUNTER → 2024-10-04 | Outpatient (CLI) | payer OTHER, MEDICAID ==
[~2024-10-04] MED LIST changes: +ALBUAER3 IN; +ALLO300T2 PO; +AML5T PO; +EMPA1TAB PO; +FURO1TAB33 PO; +LOSA-533 PO; +POTA-36 PO
[2024-10-04 07:25] LABS: Urine Bacteria None Seen /hpf (None Seen)
[2024-10-04 08:18] LABS: Urine Blood Negative /uL (Negative); Urine Clarity Clear (Clear); Urine Color Colorless (Yellow); Urine Protein, UAD Negative (Negative); Urine Specific Gravity 1.011 (1.001-1.035); Urine Squamous Epithelial Cell FEW /hpf (<5); Urine Urobilinogen Normal (Negative); Urine WBC 6 /HPF (0-5); Urine pH 5.5 (5.0-9.0)
[2024-10-04 08:29] LABS: Basophils # (auto) 0.1 10 ^3/uL (0-0.2); Basophils % (auto) 1.1 % (0.0-2.0); Eosinophils # (auto) 0.3 10 ^3/uL (0-0.8); Hematocrit 36.2 % (36.0-46.0); Hemoglobin 12.2 g/dL (12.2-16.2); Lymphocytes # (auto) 2.1 10 ^3/uL (0.4-5.4); Lymphocytes % (auto) 32.6 % (10.0-50.0); Mean Corpuscular Hemoglobin 32.6 pg (28.0-32.0); Mean Corpuscular Hgb Conc. 33.7 g/dL (32.0-36.0); Mean Corpuscular Volume 96.7 fL (80.0-100.0); Monocytes # (auto) 0.7 10 ^3/uL (0-1.3); Monocytes % (auto) 11.5 % (0.0-12.0); Neutrophils # (auto) 3.2 10 ^3/uL (1.6-8.6); Neutrophils % (auto) 49.8 % (37.0-80.0); Nucleated Red Blood Cells % 0.1 %; Platelet Count (auto) 293 10^3/uL (140-450); Red Blood Cells 3.74 10^6/uL (4.0-5.20); Red Cell Distribution Width 16.1 % (11.8-14.3); White Blood Cell 6.4 10^3/uL (4.4-10.8)
[2024-10-04 08:41] LABS: Albumin 4.5 g/dL (3.2-4.8); Alkaline Phosphatase 72 U/L (46-116); Anion Gap 10 (5-15); Aspartate Aminotransferase 14 U/L (13-40); BUN/Creatinine Ratio 23.2 (10.0-20.0); Bilirubin, Total 0.3 mg/dL (0.2-1.0); Blood Urea Nitrogen 23 mg/dL (9-23); Calcium 9.8 mg/dL (8.7-10.4); Carbon Dioxide 25 mmol/L (20-31); GFR African American 72 mL/min; GFR Non-African American 59 mL/min; Glucose 89 mg/dL (74-106); Phosphorus 3.5 mg/dL (2.4-5.1); Potassium 3.8 mmol/L (3.5-5.1); Sodium 142 mmol/L (136-145); Total Protein 6.7 g/dL (5.7-8.2)
[2024-10-04 08:42] LABS: Alanine Aminotransferase 9 U/L (7-40); Chloride 107 mmol/L (98-107)
[2024-10-04 08:54] LABS: Creatinine, Urine 38.61 mg/dL (30.0-125.0)
[2024-10-04 09:01] LABS: Micro Albumin < 3.0 mg/L (<30.0)
[2024-10-04 10:13] LABS: Uric Acid 10.1 mg/dL (3.1-7.8)
== END | disposition home or self-care (01) ==
LOC: LAB 06:58
PROVIDERS: ATTEND Internal Medicine
DX: E55.9 Vitamin D deficiency, unspecified (principal); E11.21 Type 2 diabetes mellitus with diabetic nephropathy; M10.9 Gout, unspecified; E21.3 Hyperparathyroidism, unspecified; R80.9 Proteinuria, unspecified; N39.0 Urinary tract infection, site not specified; D63.1 Anemia in chronic kidney disease; N18.30 Chronic kidney disease, stage 3 unspecified
CPT/HCPCS: 36415; 80053; 80069; 81001; 82043; 82306; 82570; 83970; 84550; 85025; 87086

== ENCOUNTER 2024-10-08 08:10 | Inpatient (IN) | payer OTHER, MEDICAID ==
[~2024-10-08] VITALS: Ht 165.1 cm; Wt 82.0 kg
[2024-10-08] MEDS ORDERED: NITROGLYCERIN 2% OINT 1GM PKG TD ONE (08:30)
--- NOTE | 2024-10-08 08:31 | ED.PDOC ---
SOB-HPI HPI Comments 69Y F with PMHx CHF, HTN, and COVID presents to ED via EMS with chief complaint SOB x1day that worsened this morning. Pt states the SOB woke her up from her sleep. Pt denies chest pain, fever, and cough. Upon EMS arrival on scene, SpO2 88% on RA and pt was placed on CPAP machine. Pt has history of meth use but last used it "a while ago". Upon ED arrival, pt noted to have bilateral lower extremity edema and distant lung sounds. Pt is also only able to speak in short sentences. No other signs/symptoms or history reported. Chief Complaint: Shortness of Breath Time Seen by MD: 08:15 Primary Care Provider: MIGDALIA Reviewed notes: Nurses Notes, Grain Combine Driver Notes, Medications, Allergies Information Source: Patient, Emergency Med Personnel Mode of Arrival: EMS Brought in by: EMS Severity: Moderate Timing: Days Duration: Since onset Context: At Rest, While Asleep PE Risk Factors: None History of: CHF Prehospital treatment: 12 Lead EKG, C-Pap, Oxygen Modifying Factors: Nothing Associated Signs and Symptoms: Leg Swelling Past Medical History PAST MEDICAL HISTORY: Anemia, CHF, CKF, Gout, High Lipids, HTN, Thyroid Surgical History: Cholecystectomy AUTOMATIC BUFFING WHEEL FORMER History: No Pertinent AUTOMAT[employer] BUFFING WHEEL FORMER History Family History Family History: Reviewed,noncontributory to illness Social History Smoker: Non-Smoker Alcohol: Occasionally Drugs: Denies Drug Use Lives In: Home Constitutional: denies: chills, diaphoresis, fatigue, fever, malaise, sweats, weakness, others EENTM: denies: blurred vision, double vision, ear bleeding, ear discharge, ear drainage, ear pain, ear ringing, eye pain, eye redness, hearing loss, mouth pain, mouth swelling, nasal discharge, nose bleeding, nose congestion, nose pain, photophobia, tearing, throat pain, throat swelling, voice changes, others Respiratory: reports: shortness of breath; denies: cough, hemoptysis, orthopnea, SOB at rest, SOB with excertion, stridor, wheezing, others Cardiovascular: denies: chest pain, dizzy spells, diaphoresis, Dyspnea on exertion, edema, irregular heart beat, left arm pain, lightheadedness, palpitations, PND, syncope, others Gastrointestinal: denies: abdomen distended, abdominal pain, blood streaked bowels, constipated, diarrhea, dysphagia, difficulty swallowing, hematemesis, melena, nausea, poor appetite, poor fluid intake, rectal bleeding, rectal pain, vomiting, others Genitourinary: denies: abnormal vagina bleeding, burning, dyspareunia, dysuria, flank pain, frequency, hematuria, incontinence, pain, , vagina discharge, urgency, others Neurological: denies: dizziness, fainting, headache, left sided numbness, left sided weakness, numbness, paresthesia, pre-existing deficit, right sided numbness, right sided weakness, seizure, speech problems, tingling, tremors, weakness, others Musculoskeletal: denies: back pain, gout, joint pain, joint swelling, muscle pain, muscle stiffness, neck pain, others Integumetry: denies: bruises, change in color, change in hair/nails, dryness, laceration, lesions, lumps, rash, wounds, others Allergic/Immunocompromised: denies: Difficulty Healing, Frequent Infections, Hives, Itching, others Hematologic/Lymphatic: denies: anemia, blood clots, easy bleeding, easy bruising, swollen glands, others Endocrine: denies: excessive hunger, excessive sweating, excessive thirst, excessive urination, flushing, intolerance to cold, intolerance to heat, unexplained weight gain, unexplained weight loss, others Psychiatric: denies: anxiety, bipolar disorder, depression, hopeless, panic disorder, schizophrenia, sleepless, suicidal, others All Other Systems: Reviewed and Negative Physical Exam General Appearance: Moderate Distress, Other (speaks in short sentences) HEENT: Normal ENT Inspection, Pharynx Normal, TMs Normal Neck: Full Range of Motion, Non-Tender, Normal, Normal Inspection Respiratory: Chest Non-Tender, Lungs Clear, Other (lung sounds: distant sounding) Cardiovascular: No JVD, No Murmur, No Gallop, Normal Peripheral Pulses, Regular Rate/Rhythm Breast Exam: Deferred Gastrointestinal: No Organomegaly, Non Tender, No Pulsatile Mass, Normal Bowel Sounds, Soft Genitalia: Deferred Pelvic: Deferred Rectal: Deferred Extremities: Normal range of motion, Non-tender, Pedal edema (2+) Musculoskeletal : Apperance: Normal Neurologic: Alert, flue lining dipper II-XII nml as Tested, No Motor Deficits, Normal Affect, Normal Mood, No Sensory Deficits Cerebellar Function: Normal Reflexes: Normal Skin: Dry, Normal Color, Warm Lymphatic: No Adenopathy Was a procedure done? Was a procedure done?: No Differential Dx Differential Diagnosis: Anxiety, Asthma, Bronchitis, CHF, COPD, Hypertension, Hyperventilation, Myocardial infarction, Panic Attack, Pneumonia, Pneumothorax, Pulmonary Embolism, Respiratory Distress, URI X-Ray, Labs, Meds, VS Vital Signs Date Time Temp Pulse Resp B/P (MAP) Pulse Ox O2 Delivery O2 Flow Rate FiO2 10/08/24 10:26 171/93 10/08/24 10:26 171/93 10/08/24 09:32 18 98 Nasal Cannula* 4 36 10/08/24 08:52 27 98 Nasal Cannula* 4 36 10/08/24 08:21 24 88 Room Air* 0 21 10/08/24 08:17 97.9 88 24 207/98 (134) 97 97.9 10/08/24 08:15 85 Lab Test 10/08/24 11:03 10/08/24 09:25 10/08/24 08:33 Range/Units Urine Color Light-yellow Yellow Urine Clarity Clear Clear Urine pH 5.5 5.0-9.0 Urine Specific [place] 1.027 1.001-1.035 Urine Protein Negative Negative Urine Ketones Negative Negative Urine Blood Negative Negative /uL Urine Nitrite Negative Negative Urine Bilirubin Negative Negative Urine Urobilinogen Normal Negative mg/dL Urine Leukocyte Esterase Negative Negative /uL Urine RBC <1 0 - 4 /hpf Urine Microscopic WBC 2 0-5 /HPF Urine Squamous Epithelial Cells Few <5 /hpf Urine Bacteria None seen None Seen /hpf Urine Glucose 4+ H Normal mg/dL Troponin I High Sensitivity 12 14 </=34 ng/L White Blood Count 8.9 # 4.4-10.8 10^3/uL Red Blood Count 4.05 4.0-5.20 10^6/uL Hemoglobin 12.7 12.2-16.2 g/dL Hematocrit 39.1 36.0-46.0 % Mean Corpuscular Volume 96.5 80.0-100.0 fL Mean Corpuscular Hemoglobin 31.4 28.0-32.0 pg Mean Corpuscular Hemoglobin Concent 32.5 32.0-36.0 g/dL Red Cell Distribution Width 15.8 H 11.8-14.3 % Platelet Count 272 140-450 10^3/uL Mean Platelet Volume 7.8 6.9-10.8 fL Neutrophils (%) (Auto) 71.5 37.0-80.0 % Lymphocytes (%) (Auto) 14.9 10.0-50.0 % Monocytes (%) (Auto) 10.2 0.0-12.0 % Eosinophils (%) (Auto) 2.8 0.0-7.0 % Basophils (%) (Auto) 0.6 0.0-2.0 % Neutrophils # (Auto) 6.4 1.6-8.6 10 ^3/uL Lymphocytes # (Auto) 1.3 0.4-5.4 10 ^3/uL Monocytes # (Auto) 0.9 0-1.3 10 ^3/uL Eosinophils # (Auto) 0.2 0-0.8 10 ^3/uL Basophils # (Auto) 0.1 0-0.2 10 ^3/uL Nucleated Red Blood Cells 0.0 % D-Dimer, Quantitative 0.67 H 0.0-0.49 mg/L FEU Sodium Level 141 136-145 mmol/L Potassium Level 4.1 3.5-5.1 mmol/L Chloride Level 108 H 98-107 mmol/L Carbon Dioxide Level 26 20-31 mmol/L Anion Gap 7 5-15 Blood Urea Nitrogen 16 9-23 mg/dL Creatinine 0.96 0.550-1.02 mg/dL Glomerular Filtration Rate Calc 64 >90 mL/min BUN/Creatinine Ratio 16.7 10.0-20.0 Serum Glucose 105 74-106 mg/dL Calcium Level 9.7 8.7-10.4 mg/dL B-Type Natriuretic Peptide 760.99 0-100 pg/mL Current Medications Medications (Trade) Dose Ordered Sig/Eitan Route Start Time Stop Time Status Last Admin Furosemide (Lasix Injection) 60 mg ONCE ONCE IV 10/08/24 08:30 10/08/24 08:31 DC 10/08/24 10:26 Aspirin 162 mg ONCE ONCE PO 10/08/24 08:30 10/08/24 08:31 DC 10/08/24 10:38 Albuterol (Ventolin Medneb) 5 mg ONCE ONCE NEB 10/08/24 08:30 10/08/24 08:31 DC 10/08/24 08:50 Albuterol (Ventolin Medneb) 5 mg ONCE ONCE NEB 10/08/24 09:30 10/08/24 09:31 DC 10/08/24 09:32 Ipratropium [place] (Atrovent Medneb) 0.5 mg ONCE ONCE NEB 10/08/24 09:30 10/08/24 09:31 DC 10/08/24 09:32 Magnesium Sulfate/ Dextrose 100 ml @ 100 mls/hr ONCE ONCE IV 10/08/24 09:30 10/08/24 10:29 DC 10/08/24 10:26 Clonidine HCl (Catapres Tablet) 0.1 mg ONCE ONCE PO 10/08/24 09:30 10/08/24 09:31 DC 10/08/24 10:[address] [address] Ph: [phone] DIAGNOSTIC IMAGING Diagnostic Imaging Report : [id number] Signed PATIENT: DAVEY CARTER ACCT: [id number] UNIT: [id number] : 1955 LOC: ER ROOM / BED: / AGE / SEX: 69 / F ADM STATUS: REG ER SERVICE 9 ORDERING PHYSICIAN: SHAUN CHOE MD PROCEDURE(s): CXRP - CHEST PORTABLE REASON: sob ORDER NUMBER(s): [id number], ACCESSION NUMBER(s): [id number] EXAM: XR Chest, 1 View CLINICAL INDICATION: sob TECHNIQUE: Frontal view of the chest. COMPARISON: XY CHEST PORTABLE on DOS: 08/29/24, XY CHEST XRAY 1 VIEW on DOS: 08/26/24, XY CHEST PORTABLE on DOS: 02/07/24 FINDINGS: LUNGS AND PLEURAL SPACES: Unremarkable. No consolidation. No pneumothorax. HEART: Cardiomegaly without overt failure. MEDIASTINUM: Unremarkable. Normal mediastinal contour. BONES/JOINTS: Unremarkable. No acute fracture. OTHER FINDINGS: . IMPRESSION: Cardiomegaly without overt failure. ATED BY: CHA JAIN MD DICTATED DATE/TIME: 10/08/24851 SIGNED BY: CHA JAIN MD SIGNED DATE/TIME: 10/08/24851 CC: [address] [address] Ph: [phone] DIAGNOSTIC IMAGING Diagnostic Imaging Report : [id number] Signed PATIENT: DAVEY CARTER ACCT: [id number] UNIT: [id number] : 1955 LOC: ER ROOM / BED: / AGE / SEX: 69 / F ADM STATUS: REG ER SERVICE 0944 ORDERING PHYSICIAN: SHAUN CHOE MD PROCEDURE(s): CTACH - CT ANGIO CHEST CONTRAST REASON: r/o pe ORDER NUMBER(s): [id number], ACCESSION NUMBER(s): [id number] CLINICAL INFORMATION: Pulmonary embolism. Indication for same-day chest radiograph is shortness of breath. TECHNIQUE: Axial CTA images of the chest were obtained after the uneventful administration of 70 mL of Omnipaque 350 IV contrast. Coronal and sagittal reformatted images and MIP images were obtained, reviewed, and stored. One or more of the following dose reduction techniques were used: Automated exposure control. Adjustment of mA and/or kV according to patient size. CTDIvol = 25.29, 17.76, 0.07, 0.07 mGy DLP = 914.71 mGy-cm COMPARISON: Chest radiograph dated 10/08/2024. FINDINGS: Pulmonary arteries: Limited evaluation for pulmonary embolism due to prominent respiratory motion artifact. No central pulmonary embolism. Can not exclude lobar, segmental, or subsegmental pulmonary emboli. Aorta: Moderate atherosclerotic calcification. No aneurysm. Cardiac: [id number] cardiomegaly. Marked coronary artery calcification. Mediastinum/leatha: Prevascular lymph nodes measure up to 1.2 cm in short axis. Right lower paratracheal lymph nodes measure up to 1.0 cm in short axis. Lungs: Respiratory motion artifact limits evaluation. There are bilateral areas of interlobular septal thickening and subtle ground-glass attenuation, which may be seen with interstitial pulmonary edema in the appropriate clinical setting. Dependent atelectasis in the lower lobes. Trace left pleural effusion. Chest wall: Partially visualized bilateral breast prostheses. Upper abdomen: Hepatic steatosis. Multiple exophytic lesions in both kidneys, some of which are consistent with cysts, including proteinaceous cysts, while others are too small to characterize. Bones: No fracture or suspicious intraosseous lesions. IMPRESSION: 1. No central pulmonary embolism. Evaluation for lobar, segmental, or subsegmental pulmonary emboli is limited due to respiratory motion artifact. 2. Findings consistent with interstitial pulmonary edema in the appropriate clinical setting. 3. Trace left pleural effusion. 4. Additional findings as described above. ATED BY: RAHEEM CLIFTON DO DICTATED DATE/TIME: 10/08/245 SIGNED BY: RAHEEM CLIFTON DO SIGNED DATE/TIME: 10/08/24 103 CC: Time of 1ST Reevaluation: 08:45 Reevaluation 1ST: Unchanged Time of 2ND Reevaluation: 11:52 Reevaluation 2ND: Improved Patient Education/Counseling: Diagnosis, Treatment, Prognosis, Need For Follow Up Family Education/Counseling: No Family Present Additional Information Previous [facility] admissions/discharges: 08/30/2024 dx CHF, 11/26/2023 dx cellulitis, 07/08/2019 dx DVT The following tests were ordered, and results were reviewed by me: TROPx3, CBC, BMP, BNP, D-DIMER, FLU A/B, COVID, CXR, CT ANGIO CHEST Additional Information was gathered from interviewing the following independent historians: EMS I reviewed and agreed with the following test results read by other providers: CXR, CT ANGIO CHEST I discussed treatment and results with medical personnel and: Patient Comprehensive systems review obtained and negative except for what is stated in the HPI. Departure 1 Departure Time of Disposition: 11:52 Impression: Primary Impression: CHF exacerbation Qualified Codes: I50.9 - Heart failure, unspecified Additional Impressions: COPD (chronic obstructive pulmonary disease) Qualified Codes: J44.9 - Chronic obstructive pulmonary disease, unspecified Respiratory failure Qualified Codes: J96.01 - Acute respiratory failure with hypoxia Disposition: ADMITTED INPATIENT Admit to: ICU Condition: Serious Discharged With: Self Critical Care Note Critical Care Time?: Yes (55 min-critical care time only) Critical care comment: Due to concerns for patients condition deteriorating, the care required my highest level of attention and readiness to intervene. I assessed the patient, reviewed the medical records, ordered the appropriate tests and treatments, then reassessed for results and responsiveness. I communicated with medical personnel and consultants and formulated a plan of care. Total critical care time excludes any procedures Stability Stability form required: No Heart Score Heart Score: Heart Score Response (Comments) Value History N/A 0 EKG N/A 0 Age N/A 0 Risk Factors N/A 0 Troponin N/A 0 Total 0 I personally scribed for SHAUN CHOE MD ([facility]) on 10/08/24 at 08:31. Electronically submitted by Baylee Hickman ([facility]). I personally scribed for SHAUN CHOE MD ([email or web address]) on 10/08/24 at 09:01. [facility] I personally scribed for SHAUN CHOE MD ([facility]) on 10/08/24 at 09:50. Electronically submitted by Baylee Hickman ([facility]). I personally scribed for SHAUN CHOE MD ([facility]) on 10/08/24 at 11:06. Electronically submitted by Baylee Hickman ([facility]). SHAUN CHOE MD Oct 08, 2024 08:31
--- NOTE | 2024-10-08 08:39 | ECG ---
[facility] Test Date: 2024-10-08 Test Time: 08:15:21 Pat Name: DAVEY CARTER Department: ER Room: 0287T Gender: F Group Cio: CATIA : 1955 Requested By: EMERGENCY EMERGENCY Order Number: [id number] Reading MD: César Barba Measurements Intervals Cub Run Rate: 85 P: 43 MD: 174 QRS: 57 QRSD: 77 T: 78 QT: 399 QTc: 475 Interpretive Statements Sinus rhythm Electronically Signed On 10-09-2024 20:34:52 PDT by Césra Barba Please click the below link to view image of tracing.
[2024-10-08 08:46] LABS: Basophils # (auto) 0.1 10 ^3/uL (0-0.2); Basophils % (auto) 0.6 % (0.0-2.0); Eosinophils # (auto) 0.2 10 ^3/uL (0-0.8); Eosinophils % (auto) 2.8 % (0.0-7.0); Hematocrit 39.1 % (36.0-46.0); Hemoglobin 12.7 g/dL (12.2-16.2); Lymphocytes # (auto) 1.3 10 ^3/uL (0.4-5.4); Lymphocytes % (auto) 14.9 % (10.0-50.0); Mean Corpuscular Hemoglobin 31.4 pg (28.0-32.0); Mean Corpuscular Hgb Conc. 32.5 g/dL (32.0-36.0); Mean Corpuscular Volume 96.5 fL (80.0-100.0); Monocytes # (auto) 0.9 10 ^3/uL (0-1.3); Monocytes % (auto) 10.2 % (0.0-12.0); Neutrophils # (auto) 6.4 10 ^3/uL (1.6-8.6); Neutrophils % (auto) 71.5 % (37.0-80.0); Platelet Count (auto) 272 10^3/uL (140-450); Red Blood Cells 4.05 10^6/uL (4.0-5.20); Red Cell Distribution Width 15.8 % (11.8-14.3); White Blood Cell 8.9 10^3/uL (4.4-10.8)
[2024-10-08] MEDS: ALBUTEROL SULF 2.5 MG/0.5ML(0.5%) NEB SOLN NEB ONE ×2 (08:50→09:32)
--- NOTE | 2024-10-08 08:55 | DVH ---
EXAM: XR Chest, 1 View CLINICAL INDICATION: sob TECHNIQUE: Frontal view of the chest. COMPARISON: XY CHEST PORTABLE on DOS: 08/29/24, XY CHEST XRAY 1 VIEW on DOS: 08/26/24, XY CHEST RIOS BLE on DOS: 02/07/24 FINDINGS: LUNGS AND PLEURAL SPACES: Unremarkable. No consolidation. No pneumothorax. HEART: Cardiomegaly without overt failure. MEDIASTINUM: Unremarkable. Normal mediastinal contour. BONES/JOINTS: Unremarkable. No acute fracture. OTHER FINDINGS: . IMPRESSION: Cardiomegaly without overt failure.
[2024-10-08 08:59] LABS: Potassium 4.1 mmol/L (3.5-5.1); Sodium 141 mmol/L (136-145)
[2024-10-08 09:00] LABS: Anion Gap 7 (5-15); Calcium 9.7 mg/dL (8.7-10.4); Carbon Dioxide 26 mmol/L (20-31)
[2024-10-08 09:05] LABS: BUN/Creatinine Ratio 16.7 (10.0-20.0); Blood Urea Nitrogen 16 mg/dL (9-23); Glucose 105 mg/dL (74-106)
[2024-10-08 09:10] LABS: Chloride 108 mmol/L (98-107)
[2024-10-08] MEDS: IPRATROPIUM BROM 0.5 MG/2.5ML INH SOL NEB ONE (09:32)
[2024-10-08 10:00] VITALS: PULSE 90; RESP 16; O2SAT 90
[2024-10-08] MEDS: FUROSEMIDE 100 MG/10ML VIAL IV ONE (10:26)
[2024-10-08] MEDS: MAGNESIUM SULFATE 1GM/100ML 100 ML IV ONE (10:26)
[2024-10-08] MEDS: cloNIDine HCL 0.1 MG TAB PO ONE (10:26)
--- NOTE | 2024-10-08 10:37 | DVH ---
CLINICAL INFORMATION: Pulmonary embolism. Indication for same-day chest radiograph is shortness of breath. TECHNIQUE: Axial CTA images of the chest were obtained after the uneventful administration of 70 mL of Omnipaque 350 IV contrast. Coronal and sagittal reformatted images and MIP images were obtained, r eviewed, and stored. One or more of the following dose reduction techniques were used: Automated expo sure control. Adjustment of mA and/or kV according to patient size. CTDIvol = 25.29, 17.76, 0.07, 0.07 mGy DLP = 914.71 mGy-cm COMPARISON: Chest radiograph dated 10/08/2024. FINDINGS: Pulmonary arteries: Limited evaluation for pulmonary embolism due to prominent respiratory motion art ifact. No central pulmonary embolism. Can not exclude lobar, segmental, or subsegmental pulmonary emb kristine. Aorta: Moderate atherosclerotic calcification. No aneurysm. Cardiac: [id number] cardiomegaly. Marked coronary artery calcification. Mediastinum/leatha: Prevascular lymph nodes measure up to 1.2 cm in short axis. Right lower paratrachea l lymph nodes measure up to 1.0 cm in short axis. Lungs: Respiratory motion artifact limits evaluation. There are bilateral areas of interlobular septa l thickening and subtle ground-glass attenuation, which may be seen with interstitial pulmonary edema in the appropriate clinical setting. Dependent atelectasis in the lower lobes. Trace left pleural ef fusion. Chest wall: Partially visualized bilateral breast prostheses. Upper abdomen: Hepatic steatosis. Multiple exophytic lesions in both kidneys, some of which are consi stent with cysts, including proteinaceous cysts, while others are too small to characterize. Bones: No fracture or suspicious intraosseous lesions. IMPRESSION: 1. No central pulmonary embolism. Evaluation for lobar, segmental, or subsegmental pulmonary emboli i s limited due to respiratory motion artifact. 2. Findings consistent with interstitial pulmonary edema in the appropriate clinical setting. 3. Trace left pleural effusion. 4. Additional findings as described above.
[2024-10-08] MEDS: ASPirin 81 mg TAB PO ONE (10:38)
[2024-10-08 11:05] LABS: Urine Bacteria None Seen /hpf (None Seen)
[2024-10-08 11:18] LABS: Urine Blood Negative /uL (Negative); Urine Clarity Clear (Clear); Urine Color Light-Yellow (Yellow); Urine Protein, UAD Negative (Negative); Urine Specific Gravity 1.027 (1.001-1.035); Urine Squamous Epithelial Cell FEW /hpf (<5); Urine Urobilinogen Normal (Negative); Urine WBC 2 /HPF (0-5); Urine pH 5.5 (5.0-9.0)
[2024-10-08] MEDS: NITROGLYCERIN 50MG/250ML 250 ML IV ONE (12:00)
[2024-10-08] MEDS: methylPREDNISolone SOD SUCC 500 MG in SODIUM CHL 0.9% 100 ML IV ONE (12:13)
[2024-10-08] MEDS: HYDROcodone-ACET 5/325MG TAB PO ONE ×2 (12:29→22:27)
--- NOTE | 2024-10-08 12:36 | DVHHP2 ---
History of Present Illness Reason for Visit: sob History of Present Illness 69-year-old female with a complex medical history including congestive heart failure (CHF), hypertension, COPD, anemia, chronic kidney disease (CKD), hyperlipidemia, hypothyroidism, and prior COVID-19 illness, presenting with progressive shortness of breath for 4 days, acutely worsening in the last 24 hours.She denies cough, fever, leg swelling, or calf pain. Lives at home with her boyfriend and reports medication compliance. Although she denies a history of COPD, prior records confirm the diagnosis. She also reports she recently stopped smoking. In the ED, oxygen saturation was 88% on room air, requiring BiPAP, now weaned to 4L nasal cannula. Received [place], nitroglycerin, clonidine, Solumedrol, magnesium, albuterol, aspirin, and Lasix. Labs showed BNP 760.99, negative troponins x2, and unremarkable CBC. BMP notable for CKD but no acute changes. CT Angio chest was negative for PE but showed pulmonary edema, cardiomegaly, and signs of heart failure. Last echocardiogram from June 03, 2024, showed EF 55%. Given her presentation, she will be admitted for acute decompensated heart failure (ADHF) management, with cardiology consultation and repeat echocardiogram. Past Medical History see hpi above Past Surgical History see hpi above Family History Reviewed, non-contributory to the management of this case. Past Social History The patient lives at home, denies smoking, alcohol or illicit drugs abuse. Review of Systems Constitutional: No: Fever, Chills, Sweats, Weakness, Malaise, Other Eyes: No: Pain, Vision change, Conjunctivae inflammation, Eyelid inflammation, Other, Redness ENT: No: Ear pain, Ear discharge, Nose pain, Nose discharge, Nose congestion, Mouth pain, Mouth swelling, Throat pain, Throat swelling, Other Respiratory: Shortness of breath, SOB with excertion; No: Cough, Dry, Wheezing, Hemoptysis, Pleuritic Pain, Sputum, Wheezing, Other Cardiovascular: No: Chest Pain, Palpitations, Orthopnea, Paroxysmal Noc. Dyspnea, Edema, Lt Headedness, Other Gastrointestinal: No: Nausea, Vomiting, Abdominal Pain, Diarrhea, Constipation, Melena, Hematochezia, Other Genitourinary: No Dysuria, No Frequency, No Incontinence, No Hematuria, No Retention, No Other Musculoskeletal: No: other, neck pain, shoulder pain, arm pain, back pain, hand pain, leg pain, foot pain Skin: No: Rash, Lesions, Jaundice, Bruising, Other Neurological: Weakness; No: Numbness, Incoordination, Change in speech, Confusion, Seizures, Other Allergies: Coded Allergies: BARNEY Inhibitors (Verified Allergy, Severe, 04/14/23) Angiotensin Receptor Blockers (Verified Allergy, Severe, 04/14/23) Allergy History Not Known (Verified Allergy, Unknown, 09/29/20) Enalapril (Verified Allergy, Unknown, 09/29/20) Penicillins (Verified Allergy, Unknown, 09/29/20) Sulfa Drugs (Verified Allergy, Unknown, 04/14/23) Uncoded Allergies: ARBS (Allergy, Unknown, 09/29/20) SULFA (Allergy, Unknown, 09/29/20) Exam Vital Signs Vital Signs Date Time Temp Pulse Resp B/P (MAP) Pulse Ox O2 Delivery O2 Flow Rate FiO2 10/08/24 12:00 74 17 146/82 (103) 92 10/08/24 09:32 Nasal Cannula* 4 36 10/08/24 08:17 97.9 97.9 General Appearance: Alert, Oriented X3, mild distress HEENT: Atraumatic, PERRLA, EOMI, Mucous membr. moist/pink Respiratory: Other (diminished throughtout ) Cardiovascular: Regular rate, Normal S1, Normal S2, No murmurs Abdominal: Normal bowel sounds, Soft, No tenderness, No hepatospenomegaly, No masses Extremities: No clubbing, No cyanosis, No edema, Normal pulses, Other (edema ) Skin: No rashes, No breakdown, No significant lesion Neuro: Other (neuro deficits ) Psych/Mental Status: Mental status NL, Mood NL Labs/Xrays Labs Test 10/08/24 11:38 10/08/24 11:03 10/08/24 08:33 Range/Units Troponin I High Sensitivity 13 </=34 ng/L Urine Color Light-yellow Yellow Urine Clarity Clear Clear Urine pH 5.5 5.0-9.0 Urine Specific [place] 1.027 1.001-1.035 Urine Protein Negative Negative Urine Ketones Negative Negative Urine Blood Negative Negative /uL Urine Nitrite Negative Negative Urine Bilirubin Negative Negative Urine Urobilinogen Normal Negative mg/dL Urine Leukocyte Esterase Negative Negative /uL Urine RBC <1 0 - 4 /hpf Urine Microscopic WBC 2 0-5 /HPF Urine Squamous Epithelial Cells Few <5 /hpf Urine Bacteria None seen None Seen /hpf Urine Glucose 4+ H Normal mg/dL White Blood Count 8.9 # 4.4-10.8 10^3/uL Red Blood Count 4.05 4.0-5.20 10^6/uL Hemoglobin 12.7 12.2-16.2 g/dL Hematocrit 39.1 36.0-46.0 % Mean Corpuscular Volume 96.5 80.0-100.0 fL Mean Corpuscular Hemoglobin 31.4 28.0-32.0 pg Mean Corpuscular Hemoglobin Concent 32.5 32.0-36.0 g/dL Red Cell Distribution Width 15.8 H 11.8-14.3 % Platelet Count 272 140-450 10^3/uL Mean Platelet Volume 7.8 6.9-10.8 fL Neutrophils (%) (Auto) 71.5 37.0-80.0 % Lymphocytes (%) (Auto) 14.9 10.0-50.0 % Monocytes (%) (Auto) 10.2 0.0-12.0 % Eosinophils (%) (Auto) 2.8 0.0-7.0 % Basophils (%) (Auto) 0.6 0.0-2.0 % Neutrophils # (Auto) 6.4 1.6-8.6 10 ^3/uL Lymphocytes # (Auto) 1.3 0.4-5.4 10 ^3/uL Monocytes # (Auto) 0.9 0-1.3 10 ^3/uL Eosinophils # (Auto) 0.2 0-0.8 10 ^3/uL Basophils # (Auto) 0.1 0-0.2 10 ^3/uL Nucleated Red Blood Cells 0.0 % D-Dimer, Quantitative 0.67 H 0.0-0.49 mg/L FEU Sodium Level 141 136-145 mmol/L Potassium Level 4.1 3.5-5.1 mmol/L Chloride Level 108 H 98-107 mmol/L Carbon Dioxide Level 26 20-31 mmol/L Anion Gap 7 5-15 Blood Urea Nitrogen 16 9-23 mg/dL Creatinine 0.96 0.550-1.02 mg/dL Glomerular Filtration Rate Calc 64 >90 mL/min BUN/Creatinine Ratio 16.7 10.0-20.0 Serum Glucose 105 74-106 mg/dL Calcium Level 9.7 8.7-10.4 mg/dL B-Type Natriuretic Peptide 760.99 0-100 pg/mL Assessment/Plan Assessment/Plan 69-year-old female with CHF, COPD, CKD, and multiple comorbidities presenting with acute worsening shortness of breath, pulmonary edema on imaging, elevated BNP, and hypoxia. Will admit for acute decompensated heart failure management, respiratory support, and further evaluation. Acute decompensated heart failure (EF 55%) with pulmonary edema found on cxr Continue IV Lasix, monitor urine output Daily weights, strict I/O Repeat echocardiogram to assess current cardiac function fu results Cardiology consult placed Low-sodium diet, fluid restriction ~1.5L/day Monitor BNP trend and electrolytes acute COPD exacerbation contributing to hypoxia Continue albuterol-ipratropium nebulizers q4h IV Solumedrol, transition to PO steroids when stable Titrate oxygen to maintain SpO2 >90%, avoid over-oxygenation Encourage incentive spirometry CHRONIC PROBLEM LIST: with continuation of home medication Congestive Heart Failure Chronic Obstructive Pulmonary Disease duonebs Chronic Kidney Disease Hypertension Anemia Hypothyroidism Hyperlipidemia History of COVID-19 Status post Cholecystectomy FEN / PROPHYLAXIS (PPx): hl Monitor BMP, magnesium, potassium daily Fluid restriction ~1.5L/day Low-sodium diet DVT Prophylaxis eliquis GI Prophylaxis Pantoprazole 40 mg IV daily while on steroids and stress of hospitalization DISPOSITION Admit to telemetry for heart failure management and respiratory monitoring. Cardiology consult placed for CHF optimization and repeat echocardiogram. Continue diuresis, steroids, and bronchodilators. Monitor renal function, electrolytes, and oxygen requirements. Reinforce smoking cessation and arrange for outpatient follow-up. Plan discussed with: Patient Date of Service: Oct 08, 2024 Billing Provider: JACINDA WYATT DNP Common Visit Codes: [id number] INP/OBS CARE (HIGH) JACINDA WYATT DNP Oct 08, 2024 12:36
[2024-10-08] MEDS ORDERED: NITROGLYCERIN 0.4 MG SL TAB SL PRN (13:30)
[2024-10-08 13:39] VITALS: BP 146/82; PULSE 74; RESP 17; TEMP 99; O2SAT 94
[2024-10-08] MEDS ORDERED: IPRATROPIUM BROM 0.5 MG/2.5ML INH SOL NEB PRN (13:45)
[2024-10-08] MEDS ORDERED: ALBUTEROL SULF 2.5 MG/0.5ML(0.5%) NEB SOLN NEB PRN (13:45)
[2024-10-08] MEDS: PANTOPRAZOLE 40 MG/10 ML VIAL INJ IV ONE (14:16)
[2024-10-08] MEDS: methylPREDNISolone SOD SUCC 125 MG/2 ML VL IV SCH (14:17)
[2024-10-08] MEDS: IOHEXOL 350 MG/ML 100ML IJ ONE (14:29)
[2024-10-08 16:00] LABS: COVID19 ANTIGEN SOFIA FIA NEGATIVE (NEGATIVE)
[2024-10-08 16:01] LABS: Rapid Influenza A Negative (Negative); Rapid Influenza B Negative (Negative)
[2024-10-08 18:14] VITALS: PULSE 76; RESP 14; O2SAT 93; O2SAT 94
[2024-10-08] MEDS: FUROSEMIDE 40 MG/4 ML VIAL IV SCH (18:20)
[2024-10-08 20:00] VITALS: PULSE 67; RESP 13; O2SAT 92
--- NOTE | 2024-10-08 21:34 | DVHINCON2 ---
Date of service: Oct 08, 2024 Referring Physician Freeman Reason for Consultation CHF exacerbation History of Present Illness This is a 69 year old female with a PMH of CHF, HTN, and COVID presents to ED via EMS with a complaint of worsening SOB x 1 day. Patient states the SOB woke her up from her sleep. Upon EMS arrival on scene, SpO2 88% on RA and patient was placed on CPAP. Patient has history of meth use but last used it "a while ago". Upon ED arrival, patient noted to have bilateral lower extremity edema and distant lung sounds. Patient is also only able to speak in short sentences. D- DIMER 0.67. TROP x3 is negative. Chest x-ray shows cardiomegaly without overt failure. Patient was admitted to the hospital. I am asked to consult on this patient. Family History: FH: liver cancer G8 MOTHER FH: lung cancer G8 MOTHER FH: prostate cancer G8 FATHER Allergies: Coded Allergies: BARNEY Inhibitors (Verified Allergy, Severe, 04/14/23) Angiotensin Receptor Blockers (Verified Allergy, Severe, 04/14/23) Allergy History Not Known (Verified Allergy, Unknown, 09/29/20) Enalapril (Verified Allergy, Unknown, 09/29/20) Penicillins (Verified Allergy, Unknown, 09/29/20) Sulfa Drugs (Verified Allergy, Unknown, 04/14/23) Uncoded Allergies: ARBS (Allergy, Unknown, 09/29/20) SULFA (Allergy, Unknown, 09/29/20) Home Meds Active Scripts Empagliflozin (Jardiance) 10 Mg Tab, 10 MG PO DAILY for 30 Days, #30 TAB 2 Refills Prov:DARY JIMENEZ RESIDENT 08/30/24 Potassium Chloride (POTASSIUM CHLORIDE CR) 10 Meq Tb, 1 TAB PO DAILY for 39 Days, #39 TAB 1 Refill Prov:DARY JIMENEZ RESIDENT 08/30/24 Furosemide (Lasix) 20 Mg Tb, 1 TAB PO DAILY for 30 Days, #30 TAB 1 Refill Prov:DARY JIMENEZ RESIDENT 08/30/24 Levofloxacin Hemihydrate (LEVAQUIN 500 MG) 500 Mg Tab, 1 TAB PO DAILY for 3 Days, #3 TAB Prov:DARY JIMNEEZ RESIDENT 08/30/24 Amlodipine Besylate (NORVASC TABLET) 5 Mg Tb, 10 MG PO DAILY for 30 Days, #60 TAB 2 Refills Prov:DARY JIMENEZ RESIDENT 08/30/24 Albuterol Sulfate (VENTOLIN MDI) 90 Mcg Ih, 90 MCG IN TID PRN for 30 Days, #1 INH Prov:DARY JIMENEZ RESIDENT 08/30/24 Acetaminophen (Tylenol) 325 Mg Tb, 325 MG PO Q8HP PRN, #7 TAB 0 Refills Prov:RAHDA DAVIS RESIDENT 11/26/23 Reported Medications Losartan Potassium (Losartan Potassium) 25 Mg Tab, 1 TAB PO DAILY, #90 TAB 1 Refill 08/27/24 Allopurinol (Allopurinol) 300 Mg Tab, 300 MG PO DAILY, TAB 08/27/24 Hydroxyzine Hcl (Hydroxyzine Hcl) 25 Mg Tab, 1 TAB PO DAILY 11/26/23 Methocarbamol (Methocarbamol) 750 Mg Tab, 1 TAB PO BID 11/26/23 Gabapentin (Gabapentin) 600 Mg Tab, 600 MG PO TID, TAB 12/29/22 Levothyroxine Sodium (Levothyroxine Sodium) 25 Mcg Tab, 25 MCG PO DAILY, TAB 04/03/22 Apixaban Base (ELIQUIS) 5 Mg Tab, 5 MG PO BID, TAB 11/01/21 Carvedilol (Coreg) 3.125 Mg Tab, 1 TAB PO BID, #180 TAB 1 Refill 07/03/19 Current Medications Current Medications Medications (Trade) Dose Ordered Sig/Eitan Route PRN Reason Start Time Stop Time Status Last Admin Amlodipine Besylate (Norvasc Tablet) 10 mg DAILY PO 10/09/24 10:00 Apixaban (Eliquis) 5 mg BID PO 10/08/24 22:00 Carvedilol (Coreg Tablet) 3.125 mg BID PO 10/08/24 22:00 Empaglifozin (Jardiance) 10 mg DAILY PO 10/09/24 10:00 Levothyroxine Sodium (Synthroid Tablet) 25 mcg DAILY PO 10/09/24 10:00 Losartan Potassium (Cozaar Tablet) 25 mg DAILY PO 10/09/24 10:00 10/08/24 17:30 DC Atorvastatin Calcium (Lipitor) 20 mg HS PO 10/08/24 22:00 Furosemide (Lasix Injection) 40 mg BIDD IV 10/08/24 18:00 10/08/24 18:20 Nitroglycerin (Ntrostat Sublingual) 0.4 mg Q5MINP PRN SL FOR CHEST PAIN 10/08/24 13:30 Albuterol (Ventolin Medneb) 2.5 mg Q4HPRN PRN NEB SHORTNESS OF BREATH 10/08/24 13:45 Ipratropium [place] (Atrovent Medneb) 0.5 mg Q4HPRN PRN NEB SHORTNESS OF BREATH 10/08/24 13:45 Pantoprazole Sodium (Protonix) 40 mg DAILY IV 10/09/24 10:00 Methylprednisolone Sodium Succinate (Solu Medrol) 40 mg Q8HR IV 10/08/24 14:00 10/08/24 14:17 Review of Systems Constitutional: denies: chills, diaphoresis, fatigue, fever, malaise, sweats, weakness, others EENTM: denies: blurred vision, double vision, ear bleeding, ear discharge, ear drainage, ear pain, ear ringing, eye pain, eye redness, hearing loss, mouth pain, mouth swelling, nasal discharge, nose bleeding, nose congestion, nose pain, photophobia, tearing, throat pain, throat swelling, voice changes, others Respiratory: reports: shortness of breath; denies: cough, hemoptysis, orthopnea, SOB at rest, SOB with excertion, stridor, wheezing, others Cardiovascular: denies: chest pain, dizzy spells, diaphoresis, Dyspnea on exertion, edema, irregular heart beat, left arm pain, lightheadedness, palpitations, PND, syncope, others Gastrointestinal: denies: abdomen distended, abdominal pain, blood streaked bowels, constipated, diarrhea, dysphagia, difficulty swallowing, hematemesis, melena, nausea, poor appetite, poor fluid intake, rectal bleeding, rectal pain, vomiting, others Genitourinary: denies: abnormal vagina bleeding, burning, dyspareunia, dysuria, flank pain, frequency, hematuria, incontinence, pain, , vagina discharge, urgency, others Neurological: denies: dizziness, fainting, headache, left sided numbness, left sided weakness, numbness, paresthesia, pre-existing deficit, right sided numbness, right sided weakness, seizure, speech problems, tingling, tremors, weakness, others Musculoskeletal: denies: back pain, gout, joint pain, joint swelling, muscle pain, muscle stiffness, neck pain, others Integumetry: denies: bruises, change in color, change in hair/nails, dryness, laceration, lesions, lumps, rash, wounds, others Allergic/Immunocompromised: denies: Difficulty Healing, Frequent Infections, Hives, Itching, others Hematologic/Lymphatic: denies: anemia, blood clots, easy bleeding, easy bruising, swollen glands, others Endocrine: denies: excessive hunger, excessive sweating, excessive thirst, excessive urination, flushing, intolerance to cold, intolerance to heat, unexplained weight gain, unexplained weight loss, others Psychiatric: denies: anxiety, bipolar disorder, depression, hopeless, panic disorder, schizophrenia, sleepless, suicidal, others All Other Systems: Reviewed and Negative Vital Signs Vital Signs Date Time Temp Pulse Resp B/P (MAP) Pulse Ox O2 Delivery O2 Flow Rate FiO2 10/08/24 20:00 97.5 61 13 155/94 (114) 92 97.5 10/08/24 13:39 4.0 36 10/08/24 10:00 Nasal Cannula* Physical Exam GENERAL: Alert and oriented x 3. No acute distress. EYES: PERRL, EOMI. Anicteric. HENT: Moist mucous membranes. LUNGS: Decreased breath sounds. CARDIOVASCULAR: Regular rate and rhythm. ABDOMEN: Soft, nontender and nondistended. EXTREMITIES: No edema. NEUROLOGIC: No focal neurological deficits. SKIN: Warm, dry. Labs/Diagnostic Data Labs Test 10/08/24 15:26 10/08/24 14:01 10/08/24 11:38 10/08/24 11:03 Range/Units Troponin I High Sensitivity 14 </=34 ng/L Influenza Type A Antigen Negative Negative Influenza Type B Antigen Negative Negative SARS-CoV-2 Antigen (Rapid) Negative NEGATIVE Magnesium Level 2.2 1.6-2.6 mg/dL Thyroid Stimulating Hormone (TSH) 1.23 0.55-4.78 uIU/mL Urine Color Light-yellow Yellow Urine Clarity Clear Clear Urine pH 5.5 5.0-9.0 Urine Specific [place] 1.027 1.001-1.035 Urine Protein Negative Negative Urine Ketones Negative Negative Urine Blood Negative Negative /uL Urine Nitrite Negative Negative Urine Bilirubin Negative Negative Urine Urobilinogen Normal Negative mg/dL Urine Leukocyte Esterase Negative Negative /uL Urine RBC <1 0 - 4 /hpf Urine Microscopic WBC 2 0-5 /HPF Urine Squamous Epithelial Cells Few <5 /hpf Urine Bacteria None seen None Seen /hpf Urine Glucose 4+ H Normal mg/dL Test 10/08/24 08:33 Range/Units White Blood Count 8.9 # 4.4-10.8 10^3/uL Red Blood Count 4.05 4.0-5.20 10^6/uL Hemoglobin 12.7 12.2-16.2 g/dL Hematocrit 39.1 36.0-46.0 % Mean Corpuscular Volume 96.5 80.0-100.0 fL Mean Corpuscular Hemoglobin 31.4 28.0-32.0 pg Mean Corpuscular Hemoglobin Concent 32.5 32.0-36.0 g/dL Red Cell Distribution Width 15.8 H 11.8-14.3 % Platelet Count 272 140-450 10^3/uL Mean Platelet Volume 7.8 6.9-10.8 fL Neutrophils (%) (Auto) 71.5 37.0-80.0 % Lymphocytes (%) (Auto) 14.9 10.0-50.0 % Monocytes (%) (Auto) 10.2 0.0-12.0 % Eosinophils (%) (Auto) 2.8 0.0-7.0 % Basophils (%) (Auto) 0.6 0.0-2.0 % Neutrophils # (Auto) 6.4 1.6-8.6 10 ^3/uL Lymphocytes # (Auto) 1.3 0.4-5.4 10 ^3/uL Monocytes # (Auto) 0.9 0-1.3 10 ^3/uL Eosinophils # (Auto) 0.2 0-0.8 10 ^3/uL Basophils # (Auto) 0.1 0-0.2 10 ^3/uL Nucleated Red Blood Cells 0.0 % D-Dimer, Quantitative 0.67 H 0.0-0.49 mg/L FEU Sodium Level 141 136-145 mmol/L Potassium Level 4.1 3.5-5.1 mmol/L Chloride Level 108 H 98-107 mmol/L Carbon Dioxide Level 26 20-31 mmol/L Anion Gap 7 5-15 Blood Urea Nitrogen 16 9-23 mg/dL Creatinine 0.96 0.550-1.02 mg/dL Glomerular Filtration Rate Calc 64 >90 mL/min BUN/Creatinine Ratio 16.7 10.0-20.0 Serum Glucose 105 74-106 mg/dL Calcium Level 9.7 8.7-10.4 mg/dL B-Type Natriuretic Peptide 760.99 0-100 pg/mL Assessment Acute decompensated heart failure (EF 55%) with pulmonary edema. Acute COPD exacerbation contributing to hypoxia. COPD. CKD. Hypertension. Anemia. Hypothyroidism. Hyperlipidemia. History of COVID-19. Status post Cholecystectomy. Plan/Recommendation I agree with your ongoing assessment and care of plan. Echocardiogram. Amlodipine. Eliquis. Lipitor. Coreg. Diuretics with Lasix. GI prophylactics. Nitro SL. Additional plan as per the hospital course. A total of 45 minutes was spent reviewing the patient record, examining the patient, making a diagnostic and therapeutic plan, discussing this plan with medical personnel, following up on diagnostic studies and following the patient for clinical stability excluding any and all procedures. At least 50% of this time was spent in direct, [id number] contact. Plan discussed with: Patient LINNEA BRANDON MD Oct 08, 2024 21:08
[2024-10-08] MEDS: APIXABAN 5 MG TAB PO SCH (23:30)
[2024-10-08] MEDS: ATORVASTATIN 20 MG TAB PO SCH (23:30)
[2024-10-08] MEDS: CARVEDILOL 3.125 MG TAB PO SCH (23:31)
[2024-10-08 23:32] VITALS: PULSE 62; RESP 17; O2SAT 97
[2024-10-08 23:41] VITALS: BP 136/79; PULSE 62; RESP 17; TEMP 97.4; O2SAT 97
[2024-10-08] MEDS ORDERED: ERGO1CAP12 PO (23:56)
[2024-10-09] VITALS (8 sets, daily range): BP systolic 115–143; BP diastolic 66–80; PULSE 74–84; RESP 17–22; TEMP 97.3–98; O2SAT 90–98
[2024-10-09] MEDS: PANTOPRAZOLE 40 MG/10 ML VIAL INJ IV SCH (09:28)
[2024-10-09] MEDS: amLODIPine BESYLATE 5 MG TAB PO SCH (09:29)
[2024-10-09] MEDS: LEVOTHYROXINE SODIUM 25 MCG TAB PO SCH (09:30)
[2024-10-09] MEDS: EMPAGLIFLOZIN 10 MG TAB PO SCH (09:30)
[2024-10-09] MEDS ORDERED: LOSARTAN POTASSIUM 25 MG TAB PO SCH (10:00)
[2024-10-09] MEDS: HYDROcodone-ACET 5/325MG TAB PO PRN (15:35)
--- NOTE | 2024-10-09 19:28 | DVHPN2 ---
Subjective 10/09 patient here with presentation of shortness of breath for 4 days. She was history of hypertension CHF COPD CKD hypothyroid. She also is presenting with left neck pain. On presentation BNP is elevated and, CT showing concern for pulmonary edema. On exam patient has decreased breath sounds in bases and has bilateral pitting edema trace to +1. Left neck pain might likely be musculoskeletal. This appears to be more volume overload thin COPD. We will continue Lasix and decrease Solu-Medrol. Patient had oxygen requirement worsening and required BiPAP in ED. BNP elevated, troponins negative x2, CMP at baseline. EF 55% in May 2024. We will continue to watch for improvement. Reviewed: H&P Changes from previous H/P or p: No Changes General: Per HPI Musculoskeletal: No other, No neck pain, No shoulder pain, No arm pain, No back pain, No hand pain, No leg pain, No foot pain Skin: No Rash, No Lesions, No Jaundice, No Bruising, No Other Objective Vitals Vital Signs Date Time Temp Pulse Resp B/P (MAP) Pulse Ox O2 Delivery O2 Flow Rate FiO2 10/09/24 17:01 126/77 10/09/24 16:53 97.7 74 20 90 97.7 10/09/24 10:00 Nasal Cannula 3.0 10/09/24 10:00 32 Intake/Output Intake and Output 10/09/24 07:00 Intake Total 1850 ml Output Total 3803 ml Balance -1953 ml Intake Oral 1750 ml IV Total 100 ml Output Urine Total 3800 ml Stool Total 2 ml Urine/Stool Mix 1 ml Exam GEN: Healthy appearing, well-developed, NAD. HEENT: NC/AT; MMM. CV: RRR, no m/r/g. LUNGS: Decreased breath sounds at bases bilaterally , lower lobes bilaterally, ABD: Soft, NT/ND, NBS, no masses or organomegaly. EXT: skin Warm, well perfused. no rashes. Edema lower extremities bilaterally trace to 1+ NEURO: Ambulating with no limitations. No focal deficits. Medications Current Medications Medications Dose Ordered Sig/Eitan Route Start Time Stop Time Status Last Admin Dose Admin Amlodipine Besylate 10 mg DAILY PO 10/09/24 10:00 10/09/24 09:29 10 MG Apixaban 5 mg BID PO 10/08/24 22:00 10/09/24 09:30 5 MG Carvedilol 3.125 mg BID PO 10/08/24 22:00 10/09/24 09:30 3.125 MG Empaglifozin 10 mg DAILY PO 10/09/24 10:00 10/09/24 09:30 10 MG Levothyroxine Sodium 25 mcg DAILY PO 10/09/24 10:00 10/09/24 09:30 25 MCG Atorvastatin Calcium 20 mg HS PO 10/08/24 22:00 10/08/24 23:30 20 MG Furosemide 40 mg BIDD IV 10/08/24 18:00 10/09/24 17:01 40 MG Nitroglycerin 0.4 mg Q5MINP PRN SL 10/08/24 13:30 Albuterol 2.5 mg Q4HPRN PRN NEB 10/08/24 13:[address] [place] 0.5 mg Q4HPRN PRN NEB 10/08/24 13:45 Pantoprazole Sodium 40 mg DAILY IV 10/09/24 10:00 10/09/24 09:28 40 MG Methylprednisolone Sodium Succinate 40 mg Q8HR IV 10/08/24 14:00 10/09/24 13:57 40 MG Acetaminophen/ Hydrocodone Bitart 1 tab Q4HPRN PRN PO 10/09/24 15:00 10/09/24 15:35 1 TAB Methocarbamol 750 mg HS PO 10/09/24 22:00 Laboratory Results Laboratory Tests 10/08/24 08:33 Urinalysis Test 10/08/24 11:03 Urine Color Light-yellow (Yellow) Urine Clarity Clear (Clear) Urine pH 5.5 (5.0-9.0) Urine Specific [place] 1.027 (1.001-1.035) Urine Protein Negative (Negative) Urine Ketones Negative (Negative) Urine Blood Negative /uL (Negative) Urine Nitrite Negative (Negative) Urine Bilirubin Negative (Negative) Urine Urobilinogen Normal mg/dL (Negative) Urine Leukocyte Esterase Negative /uL (Negative) Urine RBC <1 /hpf (0 - 4) Urine Microscopic WBC 2 /HPF (0-5) Urine Squamous Epithelial Cells Few /hpf (<5) Urine Bacteria None seen /hpf (None Seen) Urine Glucose 4+ mg/dL (Normal) H Labs and/or images reviewed: Labs reviewed by me, Image(s) reviewed by me Assessment/Plan Assessment/Plan 10/09 patient here with presentation of shortness of breath for 4 days. She was history of hypertension CHF COPD CKD hypothyroid. She also is presenting with left neck pain. On presentation BNP is elevated and, CT showing concern for pulmonary edema. On exam patient has decreased breath sounds in bases and has bilateral pitting edema trace to +1. Left neck pain might likely be musculoskeletal. This appears to be more volume overload thin COPD. We will continue Lasix and decrease Solu-Medrol. Patient had oxygen requirement worsening and required BiPAP in ED. BNP elevated, troponins negative x2, CMP at baseline. EF 55% in May 2024. We will continue to watch for improvement. Diagnosis: Acute on chronic heart failure exacerbation, diastolic likely COPD, in exacerbation, with pneumonitis Hypertension Hypothyroid CKD Plan: Lasix IV 20 b.i.d. Solu-Medrol 40 b.i.d. Continue Eliquis Continue heart failure medications Continue other home medications Duo nebs p.r.n. Keep on telemetry Diet cardiac DVT Eliquis onboard GI prophylaxis tolerating diet Telemetry Full code Plan discussed with: Patient My Orders Orders - DES RG MD Procedure Category Date Status Time Hydrocodone-Acet PHA 10/09/24 In Process 5/325mg Tab ([place] 15:00 Methocarbamol PHA 10/09/24 In Process ([place]) 22:00 Date of Service: Oct 09, 2024 Billing Provider: DES RG MD Common Visit Codes: [id number] INP/OBS CARE(HIGH) DES RG MD Oct 09, 2024 19:28
[2024-10-09] MEDS: METHOCARBAMOL 500 MG TAB PO SCH (21:34)
--- NOTE | 2024-10-09 23:53 | DVHPN2 ---
Progress Note - Dictate Date Seen: Oct 09, 2024 Medical Necessity Reason Pt with a Central, PICC or Fol: No Subjective Patient was seen and evaluated in follow up. Patient complains of generalized pain. She is on 3 LPM NC. Echocardiogram is pending. EF 55% in May 2024. Telemetry reviewed. vital signs Vital Sign Date Time Temp Pulse Resp B/P (MAP) Pulse Ox O2 Delivery O2 Flow Rate FiO2 10/09/24 13:00 98.0 82 22 143/79 (100) 94 98.0 10/09/24 10:00 Nasal Cannula 3.0 10/09/24 10:00 32 Total Intake and Output 10/08/24 10/08/24 10/09/24 15:00 23:00 07:00 Intake Total 600 ml 550 ml 700 ml Output Total 2000 ml 1800 ml 3 ml Balance -1400 ml -1250 ml 697 ml medications Current Medications Medications Dose Ordered Sig/Eitan Route Start Time Stop Time Status Last Admin Dose Admin Amlodipine Besylate 10 mg DAILY PO 10/09/24 10:00 10/09/24 09:29 10 MG Apixaban 5 mg BID PO 10/08/24 22:00 10/09/24 09:30 5 MG Carvedilol 3.125 mg BID PO 10/08/24 22:00 10/09/24 09:30 3.125 MG Empaglifozin 10 mg DAILY PO 10/09/24 10:00 10/09/24 09:30 10 MG Levothyroxine Sodium 25 mcg DAILY PO 10/09/24 10:00 10/09/24 09:30 25 MCG Atorvastatin Calcium 20 mg HS PO 10/08/24 22:00 10/08/24 23:30 20 MG Furosemide 40 mg BIDD IV 10/08/24 18:00 10/09/24 06:40 40 MG Nitroglycerin 0.4 mg Q5MINP PRN SL 10/08/24 13:30 Albuterol 2.5 mg Q4HPRN PRN NEB 10/08/24 13:45 Ipratropium Buna 0.5 mg Q4HPRN PRN NEB 10/08/24 13:45 Pantoprazole Sodium 40 mg DAILY IV 10/09/24 10:00 10/09/24 09:28 40 MG Methylprednisolone Sodium Succinate 40 mg Q8HR IV 10/08/24 14:00 10/09/24 13:57 40 MG Acetaminophen/ Hydrocodone Bitart 1 tab Q4HPRN PRN PO 10/09/24 15:00 10/09/24 15:35 1 TAB objective GENERAL: Alert and oriented x 3. No acute distress. EYES: PERRL, EOMI. Anicteric. HENT: Moist mucous membranes. LUNGS: Decreased breath sounds. CARDIOVASCULAR: Regular rate and rhythm. ABDOMEN: Soft, nontender and nondistended. EXTREMITIES: No edema. NEUROLOGIC: No focal neurological deficits. SKIN: Warm, dry. laboratory and microbiology Laboratory Tests 10/08/24 08:33 Test 10/08/24 08:33 Range/Units Serum Glucose 105 74-106 mg/dL Problem List Acute decompensated heart failure (EF 55%) with pulmonary edema. Acute COPD exacerbation contributing to hypoxia. COPD. CKD. Hypertension. Anemia. Hypothyroidism. Hyperlipidemia. History of COVID-19. Status post Cholecystectomy. Assessment/Plan Continued all current supportive medical care. Echocardiogram. Amlodipine. Eliquis. Lipitor. Coreg. Diuretics with Lasix. GI prophylactics. Nitro SL. Additional plan as per the hospital course. Plan discussed with: Patient LINNEA BRANDON MD Oct 09, 2024 16:31
[2024-10-10] VITALS (7 sets, daily range): BP systolic 135–145; BP diastolic 79–89; PULSE 65–105; RESP 17–20; TEMP 36.6; O2SAT 90–95
[2024-10-10 07:48] LABS: Basophils # (auto) 0 10 ^3/uL (0-0.2); Basophils % (auto) 0.3 % (0.0-2.0); Eosinophils # (auto) 0 10 ^3/uL (0-0.8); Hematocrit 40.2 % (36.0-46.0); Hemoglobin 13.4 g/dL (12.2-16.2); Lymphocytes # (auto) 0.8 10 ^3/uL (0.4-5.4); Lymphocytes % (auto) 6.1 % (10.0-50.0); Mean Corpuscular Hemoglobin 31.7 pg (28.0-32.0); Mean Corpuscular Hgb Conc. 33.2 g/dL (32.0-36.0); Mean Corpuscular Volume 95.4 fL (80.0-100.0); Monocytes # (auto) 0.4 10 ^3/uL (0-1.3); Monocytes % (auto) 3.1 % (0.0-12.0); Neutrophils # (auto) 11.2 10 ^3/uL (1.6-8.6); Neutrophils % (auto) 90.5 % (37.0-80.0); Platelet Count (auto) 295 10^3/uL (140-450); Red Blood Cells 4.22 10^6/uL (4.0-5.20); Red Cell Distribution Width 15.9 % (11.8-14.3); White Blood Cell 12.3 10^3/uL (4.4-10.8)
[2024-10-10 08:05] LABS: Alanine Aminotransferase 10 U/L (7-40); Albumin 4.6 g/dL (3.2-4.8); Alkaline Phosphatase 65 U/L (46-116); Anion Gap 12 (5-15); BUN/Creatinine Ratio 31.7 (10.0-20.0); Bilirubin, Total 0.5 mg/dL (0.2-1.0); Calcium 9.7 mg/dL (8.7-10.4); Carbon Dioxide 30 mmol/L (20-31); Potassium 3.1 mmol/L (3.5-5.1); Sodium 140 mmol/L (136-145); Total Protein 7.1 g/dL (5.7-8.2)
[2024-10-10 08:06] LABS: Aspartate Aminotransferase 12 U/L (13-40); Blood Urea Nitrogen 39 mg/dL (9-23); Chloride 98 mmol/L (98-107); Glucose 150 mg/dL (74-106)
--- NOTE | 2024-10-10 08:57 | DVHSR ---
APPROVED REPORT EXAM: LIMITED Two-dimensional and M-mode echocardiogram with Doppler and color Doppler. Blood Pressure: 157/86 mmHg INDICATION Dyspnea Eval for cardiac function and ef RISK FACTORS Height: 5'5", Weight: 185 DIMENSIONS LVDd3.8 (3.8-5.7cm)LA (2D) (1.9-4.0cm)Aortic Root (2.0-3.7cm) LVDs2.7 (2.5-4.0cm)LA (MM) (1.9-4.0cm)Aortic Cusp Exc (1.5-2.0cm) EF (%) 60.0 (55-70%)Rt. Atrium (1.9-4.0cm)Asc. Aorta cm IVSd1.1 (0.7-1.1cm)RV (D) (1.8-2.4cm) PWd1.1 (0.7-1.1cm) Mitral Valve MitralMitral Stenosis E/A ratio0.02D MVAcm2 Tricuspid Valve TR Velocity3.39m/s [id number] Other Information Quality : Technically LimitedRhythm : Technically limited study due to body habitus. Limited repeat to eval ef. Conclusion LVEF normal at 60-65%, mild LVH RV size and function normal Moderate tricuspid regurgitation and pulmonary hypertensino rvsp 55-60mmgh
[2024-10-10] MEDS ORDERED: PRED20TA2 PO (14:13)
[2024-10-10] MEDS ORDERED: AZIT500T66 PO (14:13)
--- NOTE | 2024-10-10 14:21 | DVHDS2 ---
Discharge Summary Date of Admission Oct 08, 2024 at 13:27 Date of Discharge: Oct 10, 2024 Labs/Diagnostic Data: Laboratory Results Test 10/10/24 07:00 10/08/24 15:26 10/08/24 14:01 10/08/24 11:38 White Blood Count 12.3 10^3/uL (4.4-10.8) Red Blood Count 4.22 10^6/uL (4.0-5.20) Hemoglobin 13.4 g/dL (12.2-16.2) Hematocrit 40.2 % (36.0-46.0) Mean Corpuscular Volume 95.4 fL (80.0-100.0) Mean Corpuscular Hemoglobin 31.7 pg (28.0-32.0) Mean Corpuscular Hemoglobin Concent 33.2 g/dL (32.0-36.0) Red Cell Distribution Width 15.9 % (11.8-14.3) Platelet Count 295 10^3/uL (140-450) Mean Platelet Volume 8.1 fL (6.9-10.8) Neutrophils (%) (Auto) 90.5 % (37.0-80.0) Lymphocytes (%) (Auto) 6.1 % (10.0-50.0) Monocytes (%) (Auto) 3.1 % (0.0-12.0) Eosinophils (%) (Auto) 0.0 % (0.0-7.0) Basophils (%) (Auto) 0.3 % (0.0-2.0) Neutrophils # (Auto) 11.2 10 ^3/uL (1.6-8.6) Lymphocytes # (Auto) 0.8 10 ^3/uL (0.4-5.4) Monocytes # (Auto) 0.4 10 ^3/uL (0-1.3) Eosinophils # (Auto) 0 10 ^3/uL (0-0.8) Basophils # (Auto) 0 10 ^3/uL (0-0.2) Nucleated Red Blood Cells 0.0 % Sodium Level 140 mmol/L (136-145) Potassium Level 3.1 mmol/L (3.5-5.1) Chloride Level 98 mmol/L (98-107) Carbon Dioxide Level 30 mmol/L (20-31) Anion Gap 12 (5-15) Blood Urea Nitrogen 39 mg/dL (9-23) Creatinine 1.23 mg/dL (0.550-1.02) Glomerular Filtration Rate Calc 48 mL/min (>90) BUN/Creatinine Ratio 31.7 (10.0-20.0) Serum Glucose 150 mg/dL (74-106) Calcium Level 9.7 mg/dL (8.7-10.4) Total Bilirubin 0.5 mg/dL (0.2-1.0) Aspartate Amino Transferase (AST) 12 U/L (13-40) Alanine Aminotransferase (ALT) 10 U/L (7-40) Alkaline Phosphatase 65 U/L (46-116) Total Protein 7.1 g/dL (5.7-8.2) Albumin 4.6 g/dL (3.2-4.8) Troponin I High Sensitivity 14 ng/L (</=34) Influenza Type A Antigen Negative (Negative) Influenza Type B Antigen Negative (Negative) SARS-CoV-2 Antigen (Rapid) Negative (NEGATIVE) Magnesium Level 2.2 mg/dL (1.6-2.6) Thyroid Stimulating Hormone (TSH) 1.23 uIU/mL (0.55-4.78) Test 10/08/24 11:03 10/08/24 08:33 Urine Color Light-yellow (Yellow) Urine Clarity Clear (Clear) Urine pH 5.5 (5.0-9.0) Urine Specific [place] 1.027 (1.001-1.035) Urine Protein Negative (Negative) Urine Ketones Negative (Negative) Urine Blood Negative /uL (Negative) Urine Nitrite Negative (Negative) Urine Bilirubin Negative (Negative) Urine Urobilinogen Normal mg/dL (Negative) Urine Leukocyte Esterase Negative /uL (Negative) Urine RBC <1 /hpf (0 - 4) Urine Microscopic WBC 2 /HPF (0-5) Urine Squamous Epithelial Cells Few /hpf (<5) Urine Bacteria None seen /hpf (None Seen) Urine Glucose 4+ mg/dL (Normal) D-Dimer, Quantitative 0.67 mg/L FEU (0.0-0.49) B-Type Natriuretic Peptide 760.99 pg/mL (0-100) Other Laboratory Tests 10/10/24 07:00 Brief Hx & Hospital Course: Summary: patient here with presentation of shortness of breath for 4 days. She was history of hypertension CHF COPD CKD hypothyroid. She also is presenting with left neck pain. On presentation BNP is elevated and, CT showing concern for pulmonary edema. On exam patient has decreased breath sounds in bases and has bilateral pitting edema trace to +1. Left neck pain might likely be musculoskeletal. This appears to be more volume overload but also some mild exacerbation of COPD. We treat with iv Lasix and low dose iv Solu-Medrol. Patient had oxygen requirement worsening and required BiPAP in ED. BNP elevated, troponins negative x2, CMP at baseline. EF 55% in May 2024. with treatment able to wean off oxygen. stable on room air. on 10/10, patient vital signs stable, no wheezing, no rales, no pedal edema. Patient has [id number] osteoarthritis bilaterally in knees and has limited mobility but has help at home with significant other. Patient was stable for discharge as per plan below Diagnosis: Acute on chronic heart failure exacerbation, diastolic likely COPD, in exacerbation, with pneumonitis Hypertension Hypothyroid CKD Discharge plan: -Take azithromycin 500 mg, once daily for 3 days -Take prednisone 40 mg (2 of 20 mg tablets), daily, for 3 days - baclofen 10mg nightly for x5 days, extra tablets to use as prn -ambulate with cane or front wheel walker -take low-salt/cardiac-renal diet -Continue with the home medications -Follow up with PCP Condition at Discharge: Fair Final Diagnosis/Problems List Acute on chronic heart failure exacerbation, diastolic likely COPD, in exacerbation, with pneumonitis Hypertension Hypothyroid CKD Discharge Disposition: Home Discharge Instruct/Medications Diet: Cardiac 2g Na,low cholest Activity: No Restrictions, As Tolerated Follow Up/Referral: below Medications: below Discharge Statement: "Patient was advised to return to the ER or call 911 if any headaches, dizziness, shortness of breath, chest pain, abdominal pain, bleeding, fevers, or worsening of medical condition. Patient was counseled about treatment plan, medications, possible side effects, patientverbalized understanding. All questions were answered to the best of my ability. This discharge took greater then 30 minutes in planning, reviewing documentation, counseling the patient, and discussing with other team members." Date of Service: Oct 10, 2024 Billing Provider: DES RG MD Common Visit Codes: 11507-FVC/OBS DISCH DAY >30min DES RG MD Oct 10, 2024 14:21
[2024-10-10] MEDS ORDERED: BACL10TA PO (17:10)
--- NOTE | 2024-10-10 23:50 | DVHPN2 ---
Progress Note - Dictate Date Seen: Oct 10, 2024 Medical Necessity Reason Pt with a Central, PICC or Fol: No Subjective Patient was seen and evaluated in follow up. Patient has no new complaints at this time. Patient denies any cardiac symptoms. Patient is cardiac stable for discharge. Telemetry reviewed. vital signs Vital Sign Date Time Temp Pulse Resp B/P (MAP) Pulse Ox O2 Delivery O2 Flow Rate FiO2 10/10/24 15:03 36.6 85 18 10/10/24 13:00 136/83 (100) 92 10/10/24 10:00 Nasal Cannula* 3 32 Total Intake and Output 10/09/24 10/09/24 10/10/24 15:00 23:00 07:00 Intake Total 200 ml 250 ml Output Total 3000 ml 200 ml Balance -2800 ml 50 ml objective GENERAL: Alert and oriented x 3. No acute distress. EYES: PERRL, EOMI. Anicteric. HENT: Moist mucous membranes. LUNGS: Decreased breath sounds. CARDIOVASCULAR: Regular rate and rhythm. ABDOMEN: Soft, nontender and nondistended. EXTREMITIES: No edema. NEUROLOGIC: No focal neurological deficits. SKIN: Warm, dry. laboratory and microbiology Laboratory Tests 10/10/24 07:00 Test 10/10/24 07:00 Range/Units Serum Glucose 150 H 74-106 mg/dL Problem List Acute decompensated heart failure (EF 55%) with pulmonary edema. Acute COPD exacerbation contributing to hypoxia. COPD. CKD. Hypertension. Anemia. Hypothyroidism. Hyperlipidemia. History of COVID-19. Status post Cholecystectomy. Assessment/Plan Continued all current supportive medical care. Amlodipine. Eliquis. Lipitor. Coreg. Diuretics with Lasix. GI prophylactics. Additional plan as per the hospital course. Plan discussed with: Patient LINNEA BRANDON MD Oct 10, 2024 23:50
== END 2024-10-10 17:00 | disposition home or self-care (01) | DRG 291 ==
LOC: EDBD 08:10 → ER 08:10 → OVERFLOW 13:27 → TELE-WESTW 22:53
PROVIDERS: ADMIT Nurse Practitioner Family; ATTEND Nurse Practitioner Family
DX: I13.0 Hypertensive heart and chronic kidney disease with heart failure and stage 1 through stage 4 chronic kidney disease, or unspecified chronic kidney disease (principal); I50.33 Acute on chronic diastolic (congestive) heart failure; J96.01 Acute respiratory failure with hypoxia; J44.1 Chronic obstructive pulmonary disease with (acute) exacerbation; D64.9 Anemia, unspecified; Z20.822 Contact with and (suspected) exposure to COVID-19; E03.9 Hypothyroidism, unspecified; E78.5 Hyperlipidemia, unspecified; N18.9 Chronic kidney disease, unspecified; J98.4 Other disorders of lung; M10.9 Gout, unspecified; Z90.49 Acquired absence of other specified parts of digestive tract; Z88.2 Allergy status to sulfonamides; Z88.0 Allergy status to penicillin; Z86.16 Personal history of COVID-19; Z80.1 Family history of malignant neoplasm of trachea, bronchus and lung; Z80.0 Family history of malignant neoplasm of digestive organs; Z79.84 Long term (current) use of oral hypoglycemic drugs; Z79.01 Long term (current) use of anticoagulants; Z79.899 Other long term (current) drug therapy
CPT/HCPCS: 36415; 71045; 71275; 80048; 80053; 81001; 83735; 83880; 84443; 84484; 85025; 85379; 87426; 87804; 93005; 93306; 94640; 96365; 96375; G0378; J2470

== ENCOUNTER → 2024-11-18 | Outpatient (CLI) | payer OTHER, MEDICAID ==
[~2024-11-18] MED LIST changes: +AZIT500T66 PO; +BACL10TA PO; +ERGO1CAP12 PO; +PRED20TA2 PO
[2024-11-18 14:53] LABS: Basophils # (auto) 0.1 10 ^3/uL (0-0.2); Basophils % (auto) 1.1 % (0.0-2.0); Eosinophils # (auto) 0.2 10 ^3/uL (0-0.8); Hematocrit 37.9 % (36.0-46.0); Hemoglobin 12.5 g/dL (12.2-16.2); Lymphocytes # (auto) 1.9 10 ^3/uL (0.4-5.4); Lymphocytes % (auto) 30.9 % (10.0-50.0); Mean Corpuscular Hemoglobin 31.4 pg (28.0-32.0); Mean Corpuscular Volume 95.1 fL (80.0-100.0); Monocytes # (auto) 0.6 10 ^3/uL (0-1.3); Monocytes % (auto) 9.8 % (0.0-12.0); Neutrophils # (auto) 3.3 10 ^3/uL (1.6-8.6); Neutrophils % (auto) 54.2 % (37.0-80.0); Nucleated Red Blood Cells % 0.1 %; Platelet Count (auto) 240 10^3/uL (140-450); Red Blood Cells 3.98 10^6/uL (4.0-5.20); Red Cell Distribution Width 15.8 % (11.8-14.3); White Blood Cell 6.1 10^3/uL (4.4-10.8)
[2024-11-18 15:49] LABS: Chloride 106 mmol/L (98-107); Potassium 3.5 mmol/L (3.5-5.1); Sodium 140 mmol/L (136-145)
[2024-11-18 15:50] LABS: Anion Gap 8 (5-15); Carbon Dioxide 26 mmol/L (20-31)
[2024-11-18 15:51] LABS: Calcium 9.8 mg/dL (8.7-10.4)
[2024-11-18 15:56] LABS: BUN/Creatinine Ratio 19.8 (10.0-20.0); Blood Urea Nitrogen 23 mg/dL (9-23); Glucose 154 mg/dL (74-106)
== END | disposition home or self-care (01) ==
LOC: LAB 14:32
PROVIDERS: ATTEND Internal Medicine
DX: J44.9 Chronic obstructive pulmonary disease, unspecified (principal); E03.9 Hypothyroidism, unspecified
CPT/HCPCS: 36415; 80048; 85025

== ENCOUNTER 2024-11-25 14:39 | Outpatient (CLI) | payer OTHER, MEDICAID ==
[2024-11-25 14:50] LABS: Urine Bacteria None Seen /hpf (None Seen)
[2024-11-25 15:47] LABS: Potassium 4.1 mmol/L (3.5-5.1)
[2024-11-25 15:48] LABS: Calcium 9.3 mg/dL (8.7-10.4)
[2024-11-25 15:52] LABS: Uric Acid 3.8 mg/dL (3.1-7.8)
[2024-11-25 15:53] LABS: BUN/Creatinine Ratio 25.2 (10.0-20.0)
[2024-11-25 15:55] LABS: Albumin 4.5 g/dL (3.2-4.8)
[2024-11-25 15:56] LABS: Phosphorus 5.8 mg/dL (2.4-5.1)
[2024-11-25 16:00] LABS: Urine Blood Negative /uL (Negative); Urine Clarity Turbid (Clear); Urine Color Light-Orange (Yellow); Urine Hyaline Cast FEW /lpf (0 - 2); Urine Protein, UAD Negative (Negative); Urine Specific Gravity 1.018 (1.001-1.035); Urine Squamous Epithelial Cell FEW /hpf (<5); Urine Urobilinogen Normal (Negative); Urine WBC 93 /HPF (0-5)
[2024-11-25 16:09] LABS: Creatinine, Urine 117.95 mg/dL (30.0-125.0); Urine Protein/Creatinine Ratio 0.11
== END 2024-11-25 17:00 | disposition home or self-care (01) ==
LOC: LAB 14:39
PROVIDERS: ATTEND Internal Medicine Nephrology
DX: E11.21 Type 2 diabetes mellitus with diabetic nephropathy (principal); N18.30 Chronic kidney disease, stage 3 unspecified; E55.9 Vitamin D deficiency, unspecified; E21.3 Hyperparathyroidism, unspecified; N39.0 Urinary tract infection, site not specified; D63.1 Anemia in chronic kidney disease; R80.9 Proteinuria, unspecified; M10.9 Gout, unspecified
CPT/HCPCS: 36415; 80069; 81001; 82306; 82570; 83970; 84156; 84550

== ENCOUNTER 2024-12-02 09:43 | Outpatient (CLI) | payer OTHER, MEDICAID ==
--- NOTE | 2024-12-02 16:03 | DVH ---
EXAM: NM PARATHYROID HISTORY: ELEVATED PTU COMPARISON: Contrasted CT scan of the chest dated 10/08/2024. TECHNIQUE: 20 mCi of Technetium 99M-Sestamibi were injected intravenously. Anterior planar scintigraphic images of the head, neck, and upper chest were obtained at 20 minutes a nd 3 hours post Sestamibi injection. FINDINGS: On the initial image, there is expected uptake in the thyroid and salivary glands. On the delayed im age, there is persistent uptake in the salivary glands and low residual uptake in the thyroid bed. N o focal areas of increased uptake are identified to suggest parathyroid adenoma. IMPRESSION: No scintigraphic evidence of parathyroid adenoma.
== END 2024-12-02 17:00 | disposition home or self-care (01) ==
LOC: XY 09:43
PROVIDERS: ATTEND Internal Medicine
DX: R79.89 Other specified abnormal findings of blood chemistry (principal)
CPT/HCPCS: 78070; A9500

== ENCOUNTER → 2025-01-27 | Outpatient (CLI) | payer OTHER, MEDICAID ==
[2025-01-27 14:02] LABS: Hematocrit 38.6 % (36.0-46.0); Hemoglobin 13.1 g/dL (12.2-16.2); Mean Corpuscular Hemoglobin 32.0 pg (28.0-32.0); Mean Corpuscular Volume 94.3 fL (80.0-100.0); Nucleated Red Blood Cells % 0.1 %
[2025-01-27 14:26] LABS: Alanine Aminotransferase 13 U/L (7-40); Albumin 4.3 g/dL (3.2-4.8); Alkaline Phosphatase 106 U/L (46-116); Anion Gap 9 (5-15); BUN/Creatinine Ratio 16.8 (10.0-20.0); Bilirubin, Total 0.5 mg/dL (0.2-1.0); Blood Urea Nitrogen 16 mg/dL (9-23); Calcium 8.8 mg/dL (8.7-10.4); Carbon Dioxide 29 mmol/L (20-31); Chloride 104 mmol/L (98-107); Potassium 3.1 mmol/L (3.5-5.1); Sodium 142 mmol/L (136-145); Total Protein 6.3 g/dL (5.7-8.2); Uric Acid 5.1 mg/dL (3.1-7.8)
[2025-01-27 14:27] LABS: Glucose 109 mg/dL (74-106)
[2025-01-27 15:22] LABS: Triglycerides 108 mg/dL (< 150)
[2025-01-27 15:24] LABS: Cholesterol 163 mg/dL (< 200); HDL Cholesterol 56 mg/dL (40-59)
== END | disposition home or self-care (01) ==
LOC: LAB 13:41
PROVIDERS: ATTEND Internal Medicine
DX: I12.9 Hypertensive chronic kidney disease with stage 1 through stage 4 chronic kidney disease, or unspecified chronic kidney disease (principal); N18.9 Chronic kidney disease, unspecified; E03.9 Hypothyroidism, unspecified; E55.9 Vitamin D deficiency, unspecified; M10.9 Gout, unspecified
CPT/HCPCS: 36415; 80053; 80061; 83036; 83970; 84550; 85025